=== PATIENT | male | born 1945 | race Caucasian/White ===

== ENCOUNTER 2019-12-11 13:25 | Emergency (ER) | payer MEDICARE ==
[2019-12-11] MEDS ORDERED: Nitroglycerin 0.4 MG Tab.SL SL PRN (14:26)
[2019-12-11] MEDS ORDERED: Sodium Chloride 0.9% 10 ML Syringe FLUSH PRN (14:26)
[2019-12-11] MEDS ORDERED: Furosemide 40 MG/4 ML VIAL IVPUSH ONE (14:30)
--- NOTE | 2019-12-11 14:30 | EDM.PDOC ---
ED HPI GENERAL MEDICAL PROBLEM - General Chief Complaint: Respiratory Problem Stated Complaint: TROUBLE BREATHING Time Seen by Provider: 12/11/19 14:21 Source of Information: Reports: Patient, RN Notes Reviewed History Limitations: Reports: No Limitations - History of Present Illness INITIAL COMMENTS - FREE TEXT/NARRATIVE: 74-year-old gentleman presents emergency department a complaint of shortness of breath, he has a known history of congestive heart failure he states over the last week or so it has progressively gotten worse he has gained about 15 pounds he notices most of the swelling is in his lower extremities. He currently takes Lasix 40 mg once a day. He denies any chest pain he says his shortness of breath really bothers him when he walks - Related Data Allergies Allergy/AdvReac Type Severity Reaction Status Date / Time lisinopril AdvReac Cough Verified 12/11/19 13:48 Home Meds: Home Meds Digoxin 1 tab PO DAILY 05/26/16 [History] Multivitamin [Multivitamins] 1 tab PO DAILY 05/26/16 [History] Citalopram Hydrobromide [Celexa] 10 mg PO DAILY 06/29/18 [History] Metoprolol Succinate 50 mg PO BID 06/29/18 [History] Rivaroxaban [Xarelto] 20 mg PO DAILY 06/29/18 [History] Amiodarone [Cordarone] 1 tab PO DAILY 12/11/19 [History] Furosemide [Lasix] 20 mg PO BID 12/11/19 [History] Warfarin Sodium 1 tab PO DAILY 12/11/19 [History] atorvaSTATin Calcium [Atorvastatin Calcium] 1 tab PO DAILY 12/11/19 [History] Past Medical History Cardiovascular History: Reports: Afib, CAD, Heart Failure, High Cholesterol, Hypertension, [place], Pacemaker, Prior Cardiac Arrest Genitourinary History: Reports: Chronic Renal Insuffiency Musculoskeletal History: Reports: Arthritis, Fracture Psychiatric History: Reports: Addiction - Past Surgical History HEENT Surgical History: Reports: Tonsillectomy Cardiovascular Surgical History: Reports: AICD, Coronary Artery Stent, Pacer GI Surgical History: Reports: Hernia, Inguinal Social & Family History - Tobacco Use Smoking Status *Q: Current Every Day Smoker Years of Tobacco use: 30 Packs/Tins Daily: 0.5 - Caffeine Use Caffeine Use: Reports: Coffee ED ROS GENERAL - Review of Systems Review Of Systems: See Below Constitutional: Reports: No Symptoms HEENT: Reports: No Symptoms Respiratory: Reports: Shortness of Breath Cardiovascular: Reports: Dyspnea on Exertion. Denies: Chest Pain GI/Abdominal: Reports: No Symptoms ED EXAM, GENERAL - Physical Exam Exam: See Below Exam Limited By: No Limitations General Appearance: Alert, WD/WN, No Apparent Distress Respiratory/Chest: No Respiratory Distress, Decreased Breath Sounds. No: Crackles Cardiovascular: Regular Rate, Rhythm, No Murmur GI/Abdominal: Soft, Non-Tender Back Exam: Normal Inspection, Full Range of Motion. No: CVA Tenderness (R), CVA Tenderness (L) Extremities: Pedal Edema Course - Vital Signs Last Recorded V/S: Last Vital Signs Temp 97.0 F 12/11/19 14:08 Pulse 61 12/11/19 15:59 Resp 20 12/11/19 15:59 BP 127/76 12/11/19 15:59 Pulse Ox 89 L 12/11/19 15:59 - Orders/Labs/Meds Orders: Active Orders 24 hr Category Date Time Status Cardiac Monitoring [RC] .As Directed Care 12/11/19 14:26 Active Peripheral IV Care [RC] . DIRECTED Care 12/11/19 14:26 Active Chest 1V Frontal [CR] Stat Exams 12/11/19 14:27 Taken INR,PT,PROTHROMBIN TIME [COAG] Urgent Lab 12/11/19 16:53 Ordered Nitroglycerin [Nitrostat] Med 12/11/19 14:26 Active 0.4 mg SL Q5M PRN Sodium Chloride 0.9% [Saline Flush] Med 12/11/19 14:26 Active 10 ml FLUSH ASDIRECTED PRN Peripheral IV Insertion Adult [OM.PC] Stat Oth 12/11/19 14:26 Ordered Saline Lock Insert [OM.PC] Stat Oth 12/11/19 14:26 Ordered Medication Orders Nitroglycerin (Nitrostat) 0.4 mg SL Q5M PRN PRN Reason: dys Stop: 12/12/19 14:26 Last Admin: 12/11/19 15:00 Dose: 0.4 mg Sodium Chloride (Saline Flush) 10 ml FLUSH ASDIRECTED PRN PRN Reason: Keep Vein Open Last Admin: 12/11/19 15:00 Dose: 10 ml Labs: Laboratory Tests 12/11/19 12/11/19 12/11/19 Range/Units 14:40 14:40 14:40 WBC 7.4 (4.5-11.0) K/uL RBC 3.87 L (4.30-5.90) M/uL Hgb 11.6 L (12.0-15.0) g/dL Hct 36.8 L (40.0-54.0) % MCV 95 (80-98) fL MCH 30 (27-31) pg MCHC 32 (32-36) % Plt Count 261 (150-400) K/uL Neut % (Auto) 79 H (36-66) % Lymph % (Auto) 10 L (24-44) % [place] % (Auto) 9 H (2-6) % Eos % (Auto) 1 L (2-4) % Baso % (Auto) 0 (0-1) % PT (9.5-12.0) sec INR (0.80-1.20) Sodium 141 (140-148) mmol/L Potassium 4.1 (3.6-5.2) mmol/L Chloride 103 (100-108) mmol/L Carbon Dioxide 26 (21-32) mmol/L Anion Gap 11.7 (5.0-14.0) mmol/L BUN 57 H D (7-18) mg/dL Creatinine 2.5 H D (0.8-1.3) mg/dL Est Cr Clr Drug Dosing 31.68 mL/min Estimated GFR (MDRD) 25 L (>60) Glucose 161 H (74-106) mg/dL Lactic Acid 2.6 H (0.4-2.0) mmol/L Calcium 8.4 L (8.5-10.1) mg/dL Total Bilirubin 1.6 H D (0.2-1.0) mg/dL AST 102 H D (15-37) U/L ALT 146 H (12-78) U/L Alkaline Phosphatase 161 H D (46-116) U/L Troponin I 0.048 (0.000-0.056) ng/mL NT-Pro-B Natriuret Pep 4769 H (5-450) pg/mL Total Protein 6.6 (6.4-8.2) g/dL Albumin 3.2 L (3.4-5.0) g/dL Globulin 3.4 (2.3-3.5) g/dL Albumin/Globulin Ratio 0.9 L (1.2-2.2) Digoxin (0.90-2.00) ng/mL 12/11/19 12/11/19 Range/Units 14:40 17:00 WBC (4.5-11.0) K/uL RBC (4.30-5.90) M/uL Hgb (12.0-15.0) g/dL Hct (40.0-54.0) % MCV (80-98) fL MCH (27-31) pg MCHC (32-36) % Plt Count (150-400) K/uL Neut % (Auto) (36-66) % Lymph % (Auto) (24-44) % [place] % (Auto) (2-6) % Eos % (Auto) (2-4) % Baso % (Auto) (0-1) % PT 39.4 H (9.5-12.0) sec INR 3.94 H D (0.80-1.20) Sodium (140-148) mmol/L Potassium (3.6-5.2) mmol/L Chloride (100-108) mmol/L Carbon Dioxide (21-32) mmol/L Anion Gap (5.0-14.0) mmol/L BUN (7-18) mg/dL Creatinine (0.8-1.3) mg/dL Est Cr Clr Drug Dosing mL/min Estimated GFR (MDRD) (>60) Glucose (74-106) mg/dL Lactic Acid (0.4-2.0) mmol/L Calcium (8.5-10.1) mg/dL Total Bilirubin (0.2-1.0) mg/dL AST (15-37) U/L ALT (12-78) U/L Alkaline Phosphatase (46-116) U/L Troponin I (0.000-0.056) ng/mL NT-Pro-B Natriuret Pep (5-450) pg/mL Total Protein (6.4-8.2) g/dL Albumin (3.4-5.0) g/dL Globulin (2.3-3.5) g/dL Albumin/Globulin Ratio (1.2-2.2) Digoxin < 0.20 L (0.90-2.00) ng/mL Meds: Medications Generic Name Dose Route Start Last Admin Trade Name Freq PRN Reason Stop Dose Admin Nitroglycerin 0.4 mg 12/11/19 14:26 12/11/19 15:00 Nitrostat SL 12/12/19 14:26 0.4 mg Q5M PRN Administration dys Sodium Chloride 10 ml 12/11/19 14:26 12/11/19 15:00 Saline Flush FLUSH 10 ml ASDIRECTED PRN Administration Keep Vein Open Discontinued Medications Generic Name Dose Route Start Last Admin Trade Name Freq PRN Reason Stop Dose Admin Furosemide 80 mg 12/11/19 14:30 12/11/19 15:00 Lasix IVPUSH 12/11/19 14:31 80 mg ONETIME ONE Administration Departure - Departure Time of Disposition: 17:29 Disposition: Home, Self-Care 01 Condition: Fair Clinical Impression: Acute exacerbation of congestive heart failure Qualifiers: Heart failure type: unspecified Qualified Code(s): I50.9 - Heart failure, unspecified - Discharge Information Instructions: Heart Failure Action Plan Referrals: PCP,None [Primary Care Provider] - Forms: ED Department Discharge Additional Instructions: Do not take anymore Lasix today, start your Lasix tomorrow 40 mg in the morning 40 mg at 2:00 in the afternoon, hold your dose of Coumadin tomorrow restart on Thursday. Please follow-up with your primary care and blood draw on Thursday at which time recommend checking your electrolytes or basic metabolic panel please consult with your primary care physician after the blood draw please bring in your daily weights and they can adjust your Lasix dose based upon weights. Call or return to the emergency department worsening of symptoms Sepsis Event Note - Evaluation Sepsis Screening Result: No Definite Risk - Focused Exam Vital Signs: Vital Signs Temp Pulse Resp BP BP Pulse Ox 12/11/19 15:59 61 20 127/76 89 L 12/11/19 15:00 122/63 12/11/19 14:08 97.0 F 60 19 135/66 96 12/11/19 13:43 97.0 F 60 19 135/66 96 Date Exam was Performed: 12/11/19 Time Exam was Performed: 17:27 - My Orders Last 24 Hours: My Active Orders 12/11/19 14:26 Cardiac Monitoring [RC] .As Directed Peripheral IV Care [RC] . DIRECTED Nitroglycerin [Nitrostat] 0.4 mg SL Q5M PRN Sodium Chloride 0.9% [Saline Flush] 10 ml FLUSH ASDIRECTED PRN Peripheral IV Insertion Adult [OM.PC] Stat Saline Lock Insert [OM.PC] Stat 12/11/19 14:27 Chest 1V Frontal [CR] Stat 12/11/19 16:53 INR,PT,PROTHROMBIN TIME [COAG] Urgent - Assessment/Plan Last 24 Hours: My Active Orders 12/11/19 14:26 Cardiac Monitoring [RC] .As Directed Peripheral IV Care [RC] . DIRECTED Nitroglycerin [Nitrostat] 0.4 mg SL Q5M PRN Sodium Chloride 0.9% [Saline Flush] 10 ml FLUSH ASDIRECTED PRN Peripheral IV Insertion Adult [OM.PC] Stat Saline Lock Insert [OM.PC] Stat 12/11/19 14:27 Chest 1V Frontal [CR] Stat 12/11/19 16:53 INR,PT,PROTHROMBIN TIME [COAG] Urgent Plan: Assessment Acuity = acute on chronic Site and laterality = congestive heart failure Etiology = probably related to fluid intake and salt intake Manifestations = dyspnea on exertion Location of injury = Home Lab values = CBC unremarkable INR supratherapeutic 3.94 creatinine elevated 2.5 consistent with chronic renal failure stage G4 lactic acid slightly elevated 2.6 consistent lactic acidosis total bilirubin elevated 1.6 consistent hyperbilirubinemia AST elevated 102 ALT elevated 146 consistent with elevated liver enzymes troponin elevated 0.048 still within the normal range but probably related to leak phenomenon BNP markedly elevated 4769 which is 2000 greater than his baseline from last visit digoxin subtherapeutic at 0.2 chest x- ray shows cardiomegaly consistent with CHF type pattern Plan He had good response to 80 mg Lasix provided in the ED with 650 cc urine out I did discuss with him options such as admission versus outpatient treatment he elected to try outpatient treatment. Therefore I will increase his Lasix to 80 mg p.o. twice daily he has a follow-up appointment with the blood draw on Thursday at which time I have asked them to add electrolytes he is going to do daily weights This note was dictated using [employer] voice recognition software please call with any questions on syntax or grammar.
[2019-12-11 16:00] VITALS: BP 127/76; PULSE 61
--- NOTE | 2019-12-12 10:19 | CR ---
CHEST: Portable 12/11/2019 at 3:07 PM CLINICAL HISTORY:Chest pain COMPARISON:June 2018 FINDINGS: Heart is enlarged. Pulmonary vascularity is cephalized. There is increased perihilar and right lower lobe lung markings. There is a large left effusion with some compression left lower lobe. Patient has a permanent cardiac pacer/defibrillator. Impression: Cardiomegaly with vascular congestion suggests CHF. Patchy perihilar and right lower lobe infiltrates likely pulmonary edema Large increasing left pleural effusion. Left lower lobe is not well seen
== END 2019-12-11 17:41 | disposition home or self-care (01) ==
LOC: JP.ED 13:25
DX: I13.0 Hypertensive heart and chronic kidney disease with heart failure and stage 1 through stage 4 chronic kidney disease, or unspecified chronic kidney disease (principal); N18.9 Chronic kidney disease, unspecified; I50.9 Heart failure, unspecified; I48.91 Unspecified atrial fibrillation; F17.210 Nicotine dependence, cigarettes, uncomplicated; Z88.8 Allergy status to other drugs, medicaments and biological substances; Z79.01 Long term (current) use of anticoagulants; Z79.899 Other long term (current) drug therapy
CPT/HCPCS: 36415; 71045; 80053; 80162; 83605; 83880; 84484; 85025; 85610; 96374; 99284; 99285; A9270; J1940

== ENCOUNTER 2019-12-13 13:03 | Inpatient (IN) | payer MEDICARE ==
[2019-12-13] MEDS ORDERED: Bumetanide 1 MG/4 ML MDV IVPUSH ONE (13:59)
[2019-12-13] MEDS ORDERED: Sodium Chloride 0.9% 10 ML Syringe FLUSH PRN (13:59)
--- NOTE | 2019-12-13 14:03 | EDM.PDOC ---
ED HPI GENERAL MEDICAL PROBLEM - General Chief Complaint: Respiratory Problem Stated Complaint: SHORTNESS OF BREATH RETAINING FLUIDS Time Seen by Provider: 12/13/19 13:55 Source of Information: Reports: Patient, Family, RN Notes Reviewed History Limitations: Reports: No Limitations - History of Present Illness INITIAL COMMENTS - FREE TEXT/NARRATIVE: 74-year-old gentleman presents emergency department today complaint shortness of breath, I had opportunity to evaluate him on Thursday he has a known history of congestive heart failure felt to be in diastolic acute on chronic heart failure exacerbation Lasix were increased to 40 mg p.o. twice daily from 40 daily on Thursday he was able to get out around 600 cc a urine prior to discharge. He states the first day went well he had good urine output however today he has not had any urine output his weight has not changed neither up or down. Continues to be short of breath with exertion but no chest pain - Related Data Allergies Allergy/AdvReac Type Severity Reaction Status Date / Time lisinopril AdvReac Cough Verified 12/13/19 13:33 Home Meds: Home Meds Digoxin 1 tab PO DAILY 05/26/16 [History] Multivitamin [Multivitamins] 1 tab PO DAILY 05/26/16 [History] Citalopram Hydrobromide [Celexa] 10 mg PO DAILY 06/29/18 [History] Metoprolol Succinate 50 mg PO BID 06/29/18 [History] Amiodarone [Cordarone] 1 tab PO DAILY 12/11/19 [History] Furosemide [Lasix] 40 mg PO BID 12/11/19 [History] Warfarin Sodium 1 tab PO DAILY 12/11/19 [History] atorvaSTATin Calcium [Atorvastatin Calcium] 1 tab PO DAILY 12/11/19 [History] Past Medical History Cardiovascular History: Reports: Afib, CAD, Heart Failure, High Cholesterol, Hypertension, [place], Pacemaker, Prior Cardiac Arrest Genitourinary History: Reports: Chronic Renal Insuffiency Musculoskeletal History: Reports: Arthritis, Fracture Psychiatric History: Reports: Addiction - Past Surgical History HEENT Surgical History: Reports: Tonsillectomy Cardiovascular Surgical History: Reports: AICD, Coronary Artery Stent, Pacer GI Surgical History: Reports: Hernia, Inguinal Social & Family History - Tobacco Use Smoking Status *Q: Light Tobacco Smoker Years of Tobacco use: 40 Packs/Tins Daily: 0.5 - Caffeine Use Caffeine Use: Reports: Coffee Other Caffeine Use: 8 cups per day - Recreational Drug Use Recreational Drug Use: No ED ROS GENERAL - Review of Systems Review Of Systems: See Below Constitutional: Reports: No Symptoms HEENT: Reports: No Symptoms Respiratory: Reports: Shortness of Breath. Denies: Cough, Sputum Cardiovascular: Reports: Dyspnea on Exertion, Edema GI/Abdominal: Reports: No Symptoms : Reports: No Symptoms ED EXAM, GENERAL - Physical Exam Exam: See Below Exam Limited By: No Limitations General Appearance: Alert, WD/WN, No Apparent Distress Respiratory/Chest: No Respiratory Distress, Decreased Breath Sounds. No: Crackles Cardiovascular: No Murmur, Irregularly Irregular Extremities: Pedal Edema Course - Vital Signs Last Recorded V/S: Last Vital Signs Temp 96 F L 12/13/19 13:31 Pulse 64 12/13/19 14:51 Resp 18 12/13/19 14:51 BP 127/66 12/13/19 14:51 Pulse Ox 92 L 12/13/19 14:51 - Orders/Labs/Meds Orders: Active Orders 24 hr Category Date Time Status Cardiac Monitoring [RC] .As Directed Care 12/13/19 13:59 Active Peripheral IV Care [RC] . DIRECTED Care 12/13/19 13:59 Active Chest 1V Frontal [CR] Stat Exams 12/13/19 13:59 Taken Sodium Chloride 0.9% [Saline Flush] Med 12/13/19 13:59 Active 10 ml FLUSH ASDIRECTED PRN Peripheral IV Insertion Adult [OM.PC] Stat Oth 12/13/19 13:59 Ordered Saline Lock Insert [OM.PC] Stat Oth 12/13/19 13:59 Ordered Medication Orders Sodium Chloride (Saline Flush) 10 ml FLUSH ASDIRECTED PRN PRN Reason: Keep Vein Open Last Admin: 12/13/19 14:49 Dose: 10 ml Labs: Laboratory Tests 12/13/19 12/13/19 12/13/19 Range/Units 14:16 14:16 14:16 WBC 8.8 (4.5-11.0) K/uL RBC 3.95 L (4.30-5.90) M/uL Hgb 11.8 L (12.0-15.0) g/dL Hct 37.7 L (40.0-54.0) % MCV 95 (80-98) fL MCH 30 (27-31) pg MCHC 31 L (32-36) % Plt Count 264 (150-400) K/uL Neut % (Auto) 79 H (36-66) % Lymph % (Auto) 10 L (24-44) % [place] % (Auto) 10 H (2-6) % Eos % (Auto) 1 L (2-4) % Baso % (Auto) 0 (0-1) % PT 42.5 H (9.5-12.0) sec INR 4.27 H* (0.80-1.20) Sodium 143 (140-148) mmol/L Potassium 4.0 (3.6-5.2) mmol/L Chloride 103 (100-108) mmol/L Carbon Dioxide 29 (21-32) mmol/L Anion Gap 10.9 (5.0-14.0) mmol/L BUN 46 H (7-18) mg/dL Creatinine 2.2 H (0.8-1.3) mg/dL Est Cr Clr Drug Dosing 36.00 mL/min Estimated GFR (MDRD) 29 L (>60) Glucose 90 (74-106) mg/dL Calcium 8.4 L (8.5-10.1) mg/dL Total Bilirubin 1.4 H (0.2-1.0) mg/dL AST 71 H (15-37) U/L ALT 123 H (12-78) U/L Alkaline Phosphatase 140 H (46-116) U/L Troponin I 0.062 H* (0.000-0.056) ng/mL NT-Pro-B Natriuret Pep 3658 H (5-450) pg/mL Total Protein 6.6 (6.4-8.2) g/dL Albumin 3.2 L (3.4-5.0) g/dL Globulin 3.4 (2.3-3.5) g/dL Albumin/Globulin Ratio 0.9 L (1.2-2.2) Meds: Medications Generic Name Dose Route Start Last Admin Trade Name Freq PRN Reason Stop Dose Admin Sodium Chloride 10 ml 12/13/19 13:59 12/13/19 14:49 Saline Flush FLUSH 10 ml ASDIRECTED PRN Administration Keep Vein Open Discontinued Medications Generic Name Dose Route Start Last Admin Trade Name Freq PRN Reason Stop Dose Admin Bumetanide 2 mg 12/13/19 13:59 12/13/19 14:49 Bumex IVPUSH 12/13/19 14:00 2 mg ONETIME ONE Administration Departure - Departure Time of Disposition: 15:23 Disposition: Admitted As Inpatient 66 Condition: Fair Clinical Impression: Pleural effusion, left Acute exacerbation of congestive heart failure Qualifiers: Heart failure type: unspecified Qualified Code(s): I50.9 - Heart failure, unspecified - Discharge Information Referrals: PCP,None [Primary Care Provider] - Forms: ED Department Discharge Sepsis Event Note - Evaluation Sepsis Screening Result: No Definite Risk - Focused Exam Vital Signs: Vital Signs Temp Pulse Resp BP Pulse Ox 12/13/19 14:51 64 18 127/66 92 L 12/13/19 13:31 96 F L 60 20 126/73 95 Date Exam was Performed: 12/13/19 Time Exam was Performed: 15:20 - My Orders Last 24 Hours: My Active Orders 12/13/19 13:59 Cardiac Monitoring [RC] .As Directed Peripheral IV Care [RC] . DIRECTED Chest 1V Frontal [CR] Stat Sodium Chloride 0.9% [Saline Flush] 10 ml FLUSH ASDIRECTED PRN Peripheral IV Insertion Adult [OM.PC] Stat Saline Lock Insert [OM.PC] Stat - Assessment/Plan Last 24 Hours: My Active Orders 12/13/19 13:59 Cardiac Monitoring [RC] .As Directed Peripheral IV Care [RC] . DIRECTED Chest 1V Frontal [CR] Stat Sodium Chloride 0.9% [Saline Flush] 10 ml FLUSH ASDIRECTED PRN Peripheral IV Insertion Adult [OM.PC] Stat Saline Lock Insert [OM.PC] Stat Plan: Assessment Acuity = acute Site and laterality = acute on chronic diastolic congestive heart failure with increasing left pleural effusion Etiology = suspicious for increased salt intake the week prior Manifestations = dyspnea on exertion Location of injury = Home Lab values = hemoglobin slightly low at 11.8 consistent normochromic anemia INR supratherapeutic 4.27 creatinine elevated 2.2 consistent chronic renal failure stage G4 bilirubin elevated 1.4 consistent hyperbilirubinemia AST 71 ALT 120 consistent with elevated liver enzymes troponin slightly elevated 0.062 consistent with leak type pattern BNP elevated 3658 close to his baseline chest x-ray shows cardiomegaly increasing left pleural effusion with increased vasculature consistent with congestive heart failure Plan Call discussed case with hospitalist on-call at 1510 he kindly agreed to come and evaluate the patient in the emergency department for admission This note was dictated using [employer] voice recognition software please call with any questions on syntax or grammar.
--- NOTE | 2019-12-13 16:27 | PCM.HP.2 ---
H&P History of Present Illness - General Date of Service: 12/13/19 Admit Problem/Dx: Admission Diagnosis/Problem Admission Diagnosis/Problem CHF, Congestive heart failure Source of Information: Patient, Provider History Limitations: Reports: No Limitations - History of Present Illness Initial Comments - Free Text/Narative: CC: I am having more trouble breathing HPI: Luis presents to the emergency room today with about 2 weeks of progressive dyspnea with exertion as well as a 15 pound weight gain. He reports that he has been more short of breath than usual pretty much all winter but things have been progressive over the past 2 weeks and especially the past few days. He is now short of breath with even minimal exertion. He has developed orthopnea. His weight is up about 15 pounds in the last 2 weeks and he has noticed a significant increase in his lower extremity swelling. His abdomen feels bloated and his pants are fitting tighter. He has not had any chest pain. No fevers or chills. No significant cough. He was seen in the emergency room 2 days ago and had his furosemide dosing increased and wanted to try to manage this at home but unfortunately has gotten worse despite the increased dose of furosemide. No change in bowel or bladder habits. No significant joint or muscle pains beyond the ordinary. Work-up in the emergency room was consistent of an exacerbation of his chronic congestive heart failure. Creatinine is higher than baseline but slightly better than it was 2 days ago. Troponin is very mildly elevated likely secondary to demand ischemia. He has received bumetanide in the emergency room and will be admitted for an exacerbation of his congestive heart failure. - Related Data Allergies/Adverse Reactions: Allergies Allergy/AdvReac Type Severity Reaction Status Date / Time lisinopril AdvReac Cough Verified 12/13/19 13:33 Home Medications: Home Meds Multivitamin [Multivitamins] 1 tab PO DAILY 05/26/16 [History] Citalopram Hydrobromide [Celexa] 10 mg PO DAILY 06/29/18 [History] Metoprolol Succinate 50 mg PO BID 06/29/18 [History] Amiodarone [Cordarone] 200 mg PO DAILY 12/11/19 [History] Furosemide [Lasix] 40 mg PO BID 12/11/19 [History] Warfarin Sodium 5 mg PO ASDIRECTED 12/11/19 [History] atorvaSTATin Calcium [Atorvastatin Calcium] 20 mg PO DAILY 12/11/19 [History] Warfarin [Coumadin] 2.5 mg PO ASDIRECTED 12/13/19 [History] Past Medical History Cardiovascular History: Reports: Afib, CAD, Heart Failure, High Cholesterol, Hypertension, MD, Pacemaker, Prior Cardiac Arrest Genitourinary History: Reports: Chronic Renal Insuffiency Musculoskeletal History: Reports: Arthritis, Fracture Psychiatric History: Reports: Addiction - Past Surgical History HEENT Surgical History: Reports: Tonsillectomy Cardiovascular Surgical History: Reports: AICD, Coronary Artery Stent, Pacer GI Surgical History: Reports: Hernia, Inguinal Social & Family History - Family History Cardiac: Reports: CAD (dad) - Tobacco Use Smoking Status *Q: Light Tobacco Smoker Years of Tobacco use: 40 Packs/Tins Daily: 0.5 - Caffeine Use Caffeine Use: Reports: Coffee Other Caffeine Use: 8 cups per day - Alcohol Use Alcohol Use History: No - Recreational Drug Use Recreational Drug Use: No H&P Review of Systems - Review of Systems: Review Of Systems: See Below Free Text/Narrative: A complete 12 point review of systems was obtained. Pertinent positives and negatives are noted in the history of present illness. All other systems were reviewed and were negative except as noted. Exam - Exam Exam: See Below - Vital Signs Vital Signs: Last Vital Signs Temp 35.5 C L 12/13/19 13:31 Pulse 59 L 12/13/19 16:14 Resp 18 12/13/19 16:14 BP 131/73 12/13/19 16:14 Pulse Ox 92 L 12/13/19 14:51 Weight: 91.7 kg - Exam Quality Assessment: No: Supplemental Oxygen General: Alert, Oriented, Cooperative. No: Mild Distress HEENT: Conjunctiva Clear, Mucosa Moist & [place]. No: Scleral Icterus Neck: Supple, Trachea Midline, JVD. No: Lymphadenopathy Lungs: Normal Respiratory Effort, Decreased Breath Sounds (left mid and lower lung ). No: Crackles Cardiovascular: Regular Rate, Regular Rhythm, Gallop/S3. No: Systolic Murmur GI/Abdominal Exam: Normal Bowel Sounds, Soft, Non-Tender, No Distention Back Exam: Normal Inspection, Full Range of Motion Extremities: Pedal Edema (pitting edema to the knee on the left and the thigh on the right ). No: Increased Warmth Peripheral Pulses: 1+: Dorsalis Pedis (L), Dorsalis Pedis (R) Skin: Warm, Dry Neuro Extensive - Mental Status: Alert, Oriented x3, Nl Response to Commands Neuro Extensive - Motor, Sensory, Reflexes: No: Dysarthria, Abnormal Motor, Tremor Psychiatric: Alert, Normal Affect - Patient Data Lab Results Last 24 hrs: Laboratory Results - last 24 hr 12/13/19 12/13/19 12/13/19 Range/Units 14:16 14:16 14:16 WBC 8.8 (4.5-11.0) K/uL RBC 3.95 L (4.30-5.90) M/uL Hgb 11.8 L (12.0-15.0) g/dL Hct 37.7 L (40.0-54.0) % MCV 95 (80-98) fL MCH 30 (27-31) pg MCHC 31 L (32-36) % Plt Count 264 (150-400) K/uL Neut % (Auto) 79 H (36-66) % Lymph % (Auto) 10 L (24-44) % [place] % (Auto) 10 H (2-6) % Eos % (Auto) 1 L (2-4) % Baso % (Auto) 0 (0-1) % PT 42.5 H (9.5-12.0) sec INR 4.27 H* (0.80-1.20) Sodium 143 (140-148) mmol/L Potassium 4.0 (3.6-5.2) mmol/L Chloride 103 (100-108) mmol/L Carbon Dioxide 29 (21-32) mmol/L Anion Gap 10.9 (5.0-14.0) mmol/L BUN 46 H (7-18) mg/dL Creatinine 2.2 H (0.8-1.3) mg/dL Est Cr Clr Drug Dosing 36.00 mL/min Estimated GFR (MDRD) 29 L (>60) Glucose 90 (74-106) mg/dL Calcium 8.4 L (8.5-10.1) mg/dL Total Bilirubin 1.4 H (0.2-1.0) mg/dL AST 71 H (15-37) U/L ALT 123 H (12-78) U/L Alkaline Phosphatase 140 H (46-116) U/L Troponin I 0.062 H* (0.000-0.056) ng/mL NT-Pro-B Natriuret Pep 3658 H (5-450) pg/mL Total Protein 6.6 (6.4-8.2) g/dL Albumin 3.2 L (3.4-5.0) g/dL Globulin 3.4 (2.3-3.5) g/dL Albumin/Globulin Ratio 0.9 L (1.2-2.2) Result Diagrams: 12/13/19 14:16 12/13/19 14:16 Imaging Impressions Last 24 hrs: CXR-images personally reviewed-right lung is clear. large left pleural effusion. No obvious mass or infiltrate. Sepsis Event Note - Evaluation Sepsis Screening Result: No Definite Risk - Focused Exam Vital Signs: Vital Signs Temp Pulse Resp BP Pulse Ox 12/13/19 16:14 59 L 18 131/73 12/13/19 14:51 64 18 127/66 92 L 12/13/19 13:31 35.5 C L 60 20 126/73 95 Date Exam was Performed: 12/13/19 Time Exam was Performed: 16:41 *Q Meaningful Use (ADM) - VTE Risk Assess *Q Each Risk Factor Represents 1 Point: Swollen Legs, Current, Congestive heart failure (CHF) Total Score 1 Point Risk Factors: 2 Each Risk Factor Represents 2 Points: None Total Score 2 Point Risk Factors: 0 Each Risk Factor Represents 3 Points: Age 75 Years or Greater Total Score 3 Point Risk Factors: 3 Each Risk Factor Represents 5 Points: None Total Score 5 Point Risk Factors: 0 Venous Thromboembolism Risk Factor Score *Q: 5 - Problem List (1) Acute combined systolic and diastolic CHF, NYHA class 3 SNOMED Code(s): 275529646752631, 754514583, 108179950658780 ICD Code: I50.41 - ACUTE COMBINED SYSTOLIC AND DIASTOLIC (CONGESTIVE) HRT FAIL Status: Acute Current Visit: Yes (2) Pleural effusion, left SNOMED Code(s): 42021384 ICD Code: J90 - PLEURAL EFFUSION, NOT ELSEWHERE CLASSIFIED Status: Acute Current Visit: Yes (3) Acute kidney injury superimposed on chronic kidney disease SNOMED Code(s): 85264106 ICD Code: N17.9 - ACUTE KIDNEY FAILURE, UNSPECIFIED; N18.9 - CHRONIC KIDNEY DISEASE, UNSPECIFIED Status: Acute Current Visit: Yes (4) Tobacco dependence syndrome SNOMED Code(s): 27854552 ICD Code: F17.200 - NICOTINE DEPENDENCE, UNSPECIFIED, UNCOMPLICATED Status : Chronic Current Visit: Yes Problem List Initiated/Reviewed/Updated: Yes Orders Last 24hrs: Active Orders 24 hr Category Date Time Status Patient Status Manage Transfer [TRANSFER] Routine ADT 12/13/19 16:17 Ordered Cardiac Monitoring [RC] .As Directed Care 12/13/19 13:59 Active Peripheral IV Care [RC] . DIRECTED Care 12/13/19 13:59 Active Chest 1V Frontal [CR] Stat Exams 12/13/19 13:59 Taken Sodium Chloride 0.9% [Saline Flush] Med 12/13/19 13:59 Active 10 ml FLUSH ASDIRECTED PRN Peripheral IV Insertion Adult [OM.PC] Stat Oth 12/13/19 13:59 Ordered Saline Lock Insert [OM.PC] Stat Oth 12/13/19 13:59 Ordered Resuscitation Status Routine Resus Stat 12/13/19 16:19 Ordered Medication Orders Sodium Chloride (Saline Flush) 10 ml FLUSH ASDIRECTED PRN PRN Reason: Keep Vein Open Last Admin: 12/13/19 14:49 Dose: 10 ml Assessment/Plan Comment:: ASSESSMENT AND PLAN - Acute combined systolic and diastolic congestive heart failure-at this time I am not able to find a baseline ejection fraction but he thinks his baseline is around 25 to 30%. Bedside ultrasound today suggests ejection fraction around 25 % at best. He has obvious evidence for volume overload on examination. He has a large pleural effusion as discussed below that could be contributing. He has failed outpatient therapy with increased furosemide dosing. Mild troponin leak is likely related to his congestive heart failure with demand ischemia. -Strict intake and output monitoring -repeat diuretic dosing early tomorrow morning -BRITTNEY stockings to help with edema -Continue beta-shilo -Echocardiogram to formally assess LV function Large left pleural effusion-from review of radiology reports it sounds like this has increased in size over the past few weeks but is stable over the past couple of days. I suspect this large effusion is contributing to his congestive heart failure and he would benefit from thoracentesis. -Reverse INR tonight -Ultrasound marking tomorrow morning -Surgical consultation in the morning for thoracentesis Acute on chronic kidney injury-significant increase in creatinine from baseline , likely secondary to his congestive heart failure. I am hopeful that his kidney function will improve as we offload some of his excess volume and improve renal perfusion. -Diuresis as above -Repeat labs in the morning Chronic atrial fibrillation-he is chronically anticoagulated and INR is slightly therapeutic. -5 mg of vitamin K x1 this evening -INR in the morning -Continue rate control Tobacco dependence-patient does not have interest in quitting at this time. He is aware of the dangers of ongoing tobacco use. -Nicotine patch Maintenance issues - - DVT prophylaxis -mechanical - GI prophylaxis -not indicated - Nutrition -low-sodium - Jeff catheter -not indicated CODE STATUS -full code Admission justification -this patient will be admitted for inpatient services and is medically appropriate meeting medical necessity for inpatient admission as outlined in my documentation. I reasonably expect the patient will require inpatient services that span a period time over 2 midnights. I reasonably expect this patient to be discharged or transferred within 96 hours [facility]. Disposition -I would anticipate discharge home after the hospital stay Primary care physician -Candy Farrell M.D. - Mortality Measure Prognosis:: Good
[2019-12-13] MEDS ORDERED: Acetaminophen 325 MG Tab PO PRN (17:02)
[2019-12-13] MEDS ORDERED: Ondansetron 4 MG/2 ML SDV IV PRN (17:02)
[2019-12-13] MEDS ORDERED: Albuterol 0.083% 2.5 MG/3 ML Neb Soln NEB PRN (17:02)
[2019-12-13] MEDS ORDERED: Ondansetron 4 MG Tab.DIS PO PRN (17:02)
[2019-12-13] MEDS ORDERED: Magnesium Hydroxide 400 MG/5 ML Susp 30 ML Cup PO PRN (17:02)
[2019-12-13] MEDS ORDERED: Nicotine 14 MG/24 Hr Patch TRDERM ONE (17:30)
[2019-12-13] MEDS ORDERED: Phytonadione 5 MG in Sodium Chloride 0.9% 50 ML IV ONE (17:30)
[2019-12-13] MEDS: Metoprolol Succinate 50 MG Tab.ER PO SCH (22:03)
[2019-12-13] MEDS: atorvaSTATin 20 MG Tab PO SCH (22:03)
[2019-12-13] MEDS: Citalopram 10 MG Tab PO SCH (22:03)
[2019-12-13] MEDS: Amiodarone 200 MG Tab PO SCH (22:04)
[2019-12-13] MEDS: LORazepam 2 MG/ML SDV IVPUSH PRN (22:05)
[2019-12-14] MEDS: LORazepam 2 MG/ML SDV IVPUSH PRN (03:24)
[2019-12-14] MEDS ORDERED: Bumetanide 2.5 MG/10 ML MDV IVPUSH ONE (06:00)
[2019-12-14] MEDS: Metoprolol Succinate 50 MG Tab.ER PO SCH ×2 (08:39→20:20)
[2019-12-14] MEDS ORDERED: atorvaSTATin 20 MG Tab PO SCH (09:00)
[2019-12-14] MEDS ORDERED: Amiodarone 200 MG Tab PO SCH (09:00)
[2019-12-14] MEDS ORDERED: Citalopram 10 MG Tab PO SCH (09:00)
--- NOTE | 2019-12-14 09:43 | CR ---
CHEST: Portable 12/13/2019 at 2:18 PM CLINICAL HISTORY:Chest pain COMPARISON:12/11/2019 FINDINGS: The heart is enlarged. Patient has a permanent cardiac pacer/defibrillator. There is a moderate to large left pleural effusion and left lower lobe airspace disease. This could represent infiltrate or atelectasis. Generalized prominence of lung markings is chronic. There are atherosclerotic changes in the aorta.. Impression: Persistent moderate to large left pleural effusion and left lower lobe airspace disease similar to prior study Underlying chronic lung field changes
[2019-12-14] MEDS: Nicotine 14 MG/24 Hr Patch TRDERM SCH (09:54)
--- NOTE | 2019-12-14 10:27 | PCM.PN ---
- General Info Date of Service: 12/14/19 Subjective Update: No acute events overnight. Decent response to diuresis yesterday and symptomatically he is feeling less short of breath. Still has a fair amount of orthopnea. Lower extremity edema is a little better. No chest pain. No fevers. Kidney function is stable. Thoracentesis planned this afternoon. Functional Status: Reports: Pain Controlled, Tolerating Diet - Review of Systems Pulmonary: Reports: Shortness of Breath Cardiovascular: Reports: Edema - Patient Data Vitals - Most Recent: Last Vital Signs Temp 36.5 C 12/14/19 07:49 Pulse 59 L 12/14/19 08:39 Resp 16 12/14/19 07:49 BP 111/66 12/14/19 08:39 Pulse Ox 100 12/14/19 07:49 Weight - Most Recent: 89.539 kg I&O - Last 24 Hours: Intake & Output 12/13/19 12/14/19 12/14/19 22:59 06:59 14:59 Intake Total 840 1320 Output Total 1345 500 400 Balance -505 -500 920 Lab Results Last 24 Hours: Laboratory Results - last 24 hr 12/13/19 12/13/19 12/13/19 Range/Units 14:16 14:16 14:16 WBC 8.8 (4.5-11.0) K/uL RBC 3.95 L (4.30-5.90) M/uL Hgb 11.8 L (12.0-15.0) g/dL Hct 37.7 L (40.0-54.0) % MCV 95 (80-98) fL MCH 30 (27-31) pg MCHC 31 L (32-36) % Plt Count 264 (150-400) K/uL Neut % (Auto) 79 H (36-66) % Lymph % (Auto) 10 L (24-44) % [place] % (Auto) 10 H (2-6) % Eos % (Auto) 1 L (2-4) % Baso % (Auto) 0 (0-1) % PT 42.5 H (9.5-12.0) sec INR 4.27 H* (0.80-1.20) Sodium 143 (140-148) mmol/L Potassium 4.0 (3.6-5.2) mmol/L Chloride 103 (100-108) mmol/L Carbon Dioxide 29 (21-32) mmol/L Anion Gap 10.9 (5.0-14.0) mmol/L BUN 46 H (7-18) mg/dL Creatinine 2.2 H (0.8-1.3) mg/dL Est Cr Clr Drug Dosing 36.00 mL/min Estimated GFR (MDRD) 29 L (>60) Glucose 90 (74-106) mg/dL Calcium 8.4 L (8.5-10.1) mg/dL Magnesium (1.8-2.4) mg/dL Total Bilirubin 1.4 H (0.2-1.0) mg/dL AST 71 H (15-37) U/L ALT 123 H (12-78) U/L Alkaline Phosphatase 140 H (46-116) U/L Troponin I 0.062 H* (0.000-0.056) ng/mL NT-Pro-B Natriuret Pep 3658 H (5-450) pg/mL Total Protein 6.6 (6.4-8.2) g/dL Albumin 3.2 L (3.4-5.0) g/dL Globulin 3.4 (2.3-3.5) g/dL Albumin/Globulin Ratio 0.9 L (1.2-2.2) Free T4 (0.76-1.46) ng/dL TSH, Ultra Sensitive (0.358-3.740) uIU/mL 12/14/19 12/14/19 12/14/19 Range/Units 04:10 04:10 08:21 WBC (4.5-11.0) K/uL RBC (4.30-5.90) M/uL Hgb (12.0-15.0) g/dL Hct (40.0-54.0) % MCV (80-98) fL MCH (27-31) pg MCHC (32-36) % Plt Count (150-400) K/uL Neut % (Auto) (36-66) % Lymph % (Auto) (24-44) % [place] % (Auto) (2-6) % Eos % (Auto) (2-4) % Baso % (Auto) (0-1) % PT 18.7 H (9.5-12.0) sec INR 1.79 H D (0.80-1.20) Sodium 141 (140-148) mmol/L Potassium 3.5 L (3.6-5.2) mmol/L Chloride 101 (100-108) mmol/L Carbon Dioxide 29 (21-32) mmol/L Anion Gap 14.5 H (5.0-14.0) mmol/L BUN 46 H (7-18) mg/dL Creatinine 2.3 H (0.8-1.3) mg/dL Est Cr Clr Drug Dosing 34.43 mL/min Estimated GFR (MDRD) 28 L (>60) Glucose 66 L (74-106) mg/dL Calcium 8.4 L (8.5-10.1) mg/dL Magnesium 1.9 (1.8-2.4) mg/dL Total Bilirubin (0.2-1.0) mg/dL AST (15-37) U/L ALT (12-78) U/L Alkaline Phosphatase (46-116) U/L Troponin I (0.000-0.056) ng/mL NT-Pro-B Natriuret Pep (5-450) pg/mL Total Protein (6.4-8.2) g/dL Albumin (3.4-5.0) g/dL Globulin (2.3-3.5) g/dL Albumin/Globulin Ratio (1.2-2.2) Free T4 1.30 (0.76-1.46) ng/dL TSH, Ultra Sensitive 10.142 H (0.358-3.740) uIU/mL Med Orders - Current: Current Medications Acetaminophen (Tylenol) 650 mg PO Q4H PRN PRN Reason: Pain (Mild 1-3)/fever Albuterol (Proventil Neb Soln) 2.5 mg NEB Q4H PRN PRN Reason: Shortness Of Breath/wheezing Last Admin: 12/14/19 03:23 Dose: 2.5 mg Amiodarone HCl (Cordarone) 200 mg PO BEDTIME JUDD Last Admin: 12/13/19 22:04 Dose: 200 mg Atorvastatin Calcium (Lipitor) 20 mg PO BEDTIME JUDD Last Admin: 12/13/19 22:03 Dose: 20 mg Bumetanide (Bumex) 2 mg IVPUSH ONETIME ONE Stop: 12/14/19 15:01 Bumetanide (Bumex) 2 mg IVPUSH ONETIME ONE Stop: 12/15/19 06:01 Citalopram Hydrobromide (Celexa) 10 mg PO BEDTIME [facility] Last Admin: 12/13/19 22:03 Dose: 10 mg Lorazepam (Ativan) 0.5 mg IVPUSH Q4H PRN PRN Reason: Nausea/Vomiting Last Admin: 12/14/19 03:24 Dose: 0.5 mg Magnesium Hydroxide (Milk Of Magnesia) 30 ml PO Q12H PRN PRN Reason: Constipation Metoprolol Succinate (Toprol Xl) 50 mg PO BID [facility] Last Admin: 12/14/19 08:39 Dose: 50 mg Nicotine (Habitrol) 14 mg TRDERM DAILY [facility] Last Admin: 12/14/19 09:54 Dose: 14 mg Ondansetron HCl (Zofran Odt) 4 mg PO Q6H PRN PRN Reason: Nausea able to take PO Ondansetron HCl (Zofran) 4 mg IV Q6H PRN PRN Reason: Nausea/Vomiting Potassium Chloride (Klor-Con M20) 40 meq PO ONETIME ONE Stop: 12/14/19 10:26 Senna/Docusate Sodium (Senna Plus) 1 tab PO BID PRN PRN Reason: Constipation Sodium Chloride (Saline Flush) 10 ml FLUSH ASDIRECTED PRN PRN Reason: Keep Vein Open Last Admin: 12/13/19 14:49 Dose: 10 ml Warfarin Sodium (Coumadin) 5 mg PO DAILY@1300 [facility] Discontinued Medications Amiodarone HCl (Cordarone) 200 mg PO DAILY [facility] Atorvastatin Calcium (Lipitor) 20 mg PO DAILY [facility] Bumetanide (Bumex) 2 mg IVPUSH ONETIME ONE Stop: 12/13/19 14:00 Last Admin: 12/13/19 14:49 Dose: 2 mg Bumetanide (Bumex) 2 mg IVPUSH ONETIME ONE Stop: 12/14/19 06:01 Last Admin: 12/14/19 06:24 Dose: 2 mg Citalopram Hydrobromide (Celexa) 10 mg PO DAILY [facility] Phytonadione 5 mg/ Sodium (Chloride) 50.5 mls @ 100 mls/hr IV NOW ONE Stop: 12/13/19 18:00 Last Admin: 12/13/19 18:29 Dose: 100 mls/hr Nicotine (Habitrol) 14 mg TRDERM ONETIME ONE Stop: 12/13/19 17:31 Last Admin: 12/13/19 18:29 Dose: 14 mg - Exam Quality Assessment: No: Supplemental Oxygen General: Alert, Oriented, Cooperative, No Acute Distress Neck: JVD Lungs: Normal Respiratory Effort Cardiovascular: Regular Rate, Regular Rhythm GI/Abdominal Exam: Soft, No Distention Extremities: Pedal Edema Psy/Mental Status: Alert, Normal Affect Sepsis Event Note - Evaluation Sepsis Screening Result: No Definite Risk - Focused Exam Vital Signs: Vital Signs Temp Pulse Pulse Resp BP BP BP 12/14/19 08:39 59 L 111/66 12/14/19 07:49 36.5 C 58 L 16 131/67 12/14/19 02:58 35.7 C L 60 20 120/63 12/13/19 22:52 36.6 C 64 18 127/56 L Pulse Ox 12/14/19 08:39 12/14/19 07:49 100 12/14/19 02:58 96 12/13/19 22:52 95 Date Exam was Performed: 12/14/19 Time Exam was Performed: 14:12 - Problem List & Annotations (1) Acute combined systolic and diastolic CHF, NYHA class 3 SNOMED Code(s): 137310569425713, 696502092, 934399520262097 Code(s): I50.41 - ACUTE COMBINED SYSTOLIC AND DIASTOLIC (CONGESTIVE) HRT FAIL Status: Acute Current Visit: Yes (2) Pleural effusion, left SNOMED Code(s): 72723446 Code(s): J90 - PLEURAL EFFUSION, NOT ELSEWHERE CLASSIFIED Status: Acute Current Visit: Yes (3) Acute kidney injury superimposed on chronic kidney disease SNOMED Code(s): 81485759 Code(s): N17.9 - ACUTE KIDNEY FAILURE, UNSPECIFIED; N18.9 - CHRONIC KIDNEY DISEASE, UNSPECIFIED Status: Acute Current Visit: Yes (4) Tobacco dependence syndrome SNOMED Code(s): 66761176 Code(s): F17.200 - NICOTINE DEPENDENCE, UNSPECIFIED, UNCOMPLICATED Status: Chronic Current Visit: Yes - Problem List Review Problem List Initiated/Reviewed/Updated: Yes - My Orders Last 24 Hours: My Active Orders 12/13/19 16:19 Resuscitation Status Routine 12/13/19 17:02 Patient Status [ADT] Routine Antiembolic Devices [RC] .Routine Height and Weight [RC] 0500 Intake and Output [RC] QSHIFT Notify Provider Vital Signs [RC] ASDIRECTED Oxygen Therapy [RC] PRN RT Aerosol Therapy [RC] ASDIRECTED Up With Assistance [RC] ASDIRECTED VTE/DVT Education [RC] Per Unit Routine Vital Signs [RC] Q4H Acetaminophen [Tylenol] 650 mg PO Q4H PRN Albuterol [Proventil Neb Soln] 2.5 mg NEB Q4H PRN Docusate Sodium/Sennosides [Senna Plus] 1 tab PO BID PRN LORazepam [Ativan] 0.5 mg IVPUSH Q4H PRN Magnesium Hydroxide [Milk of Magnesia] 30 ml PO Q12H PRN Ondansetron [Zofran ODT] 4 mg PO Q6H PRN Ondansetron [Zofran] 4 mg IV Q6H PRN Antiembolic Hose [OM.PC] Routine 12/13/19 21:00 Metoprolol Succinate [Toprol XL] 50 mg PO BID 12/13/19 21:45 Amiodarone [Cordarone] 200 mg PO BEDTIME Citalopram [Celexa] 10 mg PO BEDTIME atorvaSTATin [Lipitor] 20 mg PO BEDTIME 12/13/19 Dinner 2 Gram Sodium Diet [DIET] 12/14/19 07:00 US Guidance Thoracentesis NC [US] Routine 12/14/19 09:00 Nicotine [Habitrol] 14 mg TRDERM DAILY 12/14/19 10:25 Potassium Chloride [Klor-Con M20] 40 meq PO ONETIME ONE 12/14/19 13:00 Warfarin [Coumadin] 5 mg PO DAILY@1300 12/14/19 15:00 Bumetanide [Bumex] 2 mg IVPUSH ONETIME ONE 12/15/19 05:00 BASIC METABOLIC PANEL,BMP [CHEM] Timed INR,PT,PROTHROMBIN TIME [COAG] Timed 12/15/19 06:00 Bumetanide [Bumex] 2 mg IVPUSH ONETIME ONE 12/15/19 07:00 Echo Comp wo Cont [US] Routine - Plan Plan:: ASSESSMENT AND PLAN - Acute combined systolic and diastolic congestive heart failure-symptomatically he is a little better and examination has improved from yesterday. Echocardiogram still pending. Kidney function stable with diuresis. -Strict intake and output monitoring -repeat diuretic dosing this afternoon and tomorrow morning -BRITTNEY stockings to help with edema -Continue beta-shilo -Echocardiogram to formally assess LV function tomorrow Large left pleural effusion-thoracentesis planned for this afternoon. -Ultrasound marking complete -Surgical consultation for thoracentesis Acute on chronic kidney injury-significant increase in creatinine from baseline , likely secondary to his congestive heart failure. Kidney function stable so far but hopefully it will improve with diuresis. -Diuresis as above -Repeat labs in the morning Chronic atrial fibrillation-he was chronically anticoagulated but this was reversed for the procedure. - warfarin 5 mg daily starting this afternoon -INR in the morning -Continue rate control Tobacco dependence-patient does not have interest in quitting at this time. He is aware of the dangers of ongoing tobacco use. -Nicotine patch Maintenance issues - - DVT prophylaxis -mechanical - GI prophylaxis -not indicated - Nutrition -low-sodium Disposition -I would anticipate discharge home after the hospital stay Primary care physician -Candy Farrell M.D.
[2019-12-14] MEDS ORDERED: Potassium Chloride 20 MEQ Tab.ER PO ONE (11:00)
[2019-12-14] MEDS ORDERED: Warfarin 5 MG Tab PO SCH (13:00)
--- NOTE | 2019-12-14 13:20 | CR ---
CHEST: Portable 12/14/2019 CLINICAL HISTORY:Postthoracentesis COMPARISON:12/13/2019 FINDINGS: There is been a significant decrease in the left pleural effusion. There is some patchy density in both lower lung lion which may represent some patchy atelectasis. There is a ill-defined density in the right upper lobe which is increased compared to prior study. The small pneumonia is not excluded. Impression: Significant decrease in left pleural effusion postthoracentesis. There is no evidence of pneumothorax Patchy bibasal densities most likely some subsegmental atelectasis New patchy density in the right upper lobe may represent an early pneumonia.
[2019-12-14] MEDS ORDERED: Bumetanide 1 MG/4 ML MDV IVPUSH ONE (15:00)
[2019-12-14] MEDS ORDERED: LORazepam 0.5 MG Tab PO PRN (15:27)
[2019-12-14] MEDS: Amiodarone 200 MG Tab PO SCH (20:20)
[2019-12-14] MEDS: Citalopram 10 MG Tab PO SCH (20:20)
[2019-12-14] MEDS: atorvaSTATin 20 MG Tab PO SCH (20:21)
[2019-12-15] MEDS ORDERED: Bumetanide 1 MG/4 ML MDV IVPUSH ONE (06:00)
[2019-12-15] MEDS: Nicotine 14 MG/24 Hr Patch TRDERM SCH (08:23)
[2019-12-15] MEDS: Metoprolol Succinate 50 MG Tab.ER PO SCH (08:26)
[2019-12-15 08:29] VITALS: BP 113/62; PULSE 60
--- NOTE | 2019-12-15 09:46 | CR ---
CHEST: 2 view CLINICAL HISTORY:Left pleural effusion, infiltrates COMPARISON:12/14/2019 FINDINGS: Heart is enlarged. Pulmonary vascular is normal. Patient is a permanent cardiac pacer/defibrillator. There is a small persistent left pleural effusion. There is increasing left lower lobe infiltrate. There is also some mild patchy density in the right lung base and the right upper lobe similar to prior study. Impression: Small left pleural effusion Increasing left lower lobe infiltrate.
--- NOTE | 2019-12-15 09:57 | PCM.DCSUM1 ---
Discharge Summary - Hospital Course Brief History: 74-year-old male with history of combined systolic and diastolic congestive heart failure and stage III chronic kidney disease as well as tobacco dependence who presented with progressive shortness of breath and dyspnea with exertion. He was admitted for management of an exacerbation of his congestive heart failure that was failing outpatient medication changes. Diagnosis: Stroke: No - Discharge Data Discharge Date: 12/15/19 Discharge Disposition: Home, Self-Care 01 Condition: Good - Referral to Home Health Primary Care Physician: PCP None - Discharge Diagnosis/Problem(s) (1) Acute combined systolic and diastolic CHF, NYHA class 3 SNOMED Code(s): 182938219655183, 850211068, 806228840200708 ICD Code: I50.41 - ACUTE COMBINED SYSTOLIC AND DIASTOLIC (CONGESTIVE) HRT FAIL Status: Acute (2) Pleural effusion, left SNOMED Code(s): 96788742 ICD Code: J90 - PLEURAL EFFUSION, NOT ELSEWHERE CLASSIFIED Status: Acute (3) Acute kidney injury superimposed on chronic kidney disease SNOMED Code(s): 69498391 ICD Code: N17.9 - ACUTE KIDNEY FAILURE, UNSPECIFIED; N18.9 - CHRONIC KIDNEY DISEASE, UNSPECIFIED Status: Acute (4) Tobacco dependence syndrome SNOMED Code(s): 40141545 ICD Code: F17.200 - NICOTINE DEPENDENCE, UNSPECIFIED, UNCOMPLICATED Status : Chronic - Patient Summary/Data Operative Procedure(s) Performed: Left-sided thoracentesis performed by Dr. Santana with removal of 2600 mL of clear, light yellow fluid Hospital Course: Almas presented to the emergency room with progressive shortness of breath and dyspnea on exertion. Work-up in the emergency room was consistent with an exacerbation of his congestive heart failure which was getting worse despite increases in his outpatient diuretic regimen. He was not hypoxic at the time of presentation. He did receive a dose of IV bumetanide in the emergency room and was admitted for further management and additional work-up. Of note at the time of presentation his creatinine was up to 2.3 which is higher than his baseline of about 1.4-1.6. He had a mild troponin elevation at 0.06 but this was thought to be demand ischemia in the setting of congestive heart failure. Also noted at the time of presentation was a large left pleural effusion. His INR was mildly supratherapeutic and he did receive some vitamin K with the plan to proceed with thoracentesis the next day. Overnight he had a good response to diuresis and lost a couple of pounds just with the initial dose of bumetanide. He received additional doses the next morning. We did perform a thoracentesis at the bedside which removed 2.6 L of a clear and light yellow fluid consistent with transudate. He had a fairly impressive symptomatic improvement after the thoracentesis was complete. He had a good response to diuresis throughout the day as well. On the morning of discharge his weight is noted to be down between 12 and 13 pounds. His shortness of breath and dyspnea are much better. He does still have some lower extremity edema but this is improving as well. His kidney function has remained stable but has not improved. Blood pressure has tolerated the diuresis well. We did perform an echocardiogram on the morning of discharge. This showed an ejection fraction of about 25%. He has severe MR and TR. He has grade 3 diastolic dysfunction as well. There is global hypokinesis and an enlarged left ventricle as well as poor right ventricular function. These seem to be fairly stable when compared to previous echocardiogram reports. He is up and walking around and feels well. I am going to transition him from the furosemide to bumetanide to continue his maintenance diuretic dosing. No other medication changes were made. We did review congestive heart failure management as an outpatient including weighing himself every day and watching for changes in his weight as well as increasing symptoms such as shortness of breath or signs such as increasing lower extremity edema. He will have early follow-up with his primary care. - Patient Instructions Diet: Heart Healthy Diet Activity: As Tolerated Showering/Bathing: May Shower Other/Special Instructions: 1. You were in the hospital for management of congestive heart failure. Your condition has been improving with IV diuretic therapy as well as a left-sided thoracentesis. I recommend that we switch your diuretics from furosemide (Lasis) to bumetanide (Bumex). You should stop taking the furosemide. Starting tomorrow (Thursday) morning you should start taking bumetanide (Bumex) 1 mg once daily in the morning. Please keep track of your weight daily. If your weight rises by more than 2 pounds in 1 day or 4pounds over several days you can increase your dose to 1-1/2 or 2 tablets. If your weight decreases by more than about 4 pounds from your baseline you should decrease your dosing to 1/2 tablet daily. 2. Continue your other home medications as previously prescribed. 3. Follow up with your primary care in about 1 week. 4. Seek medical attention if you have fever greater than 101 degrees or if you develop sudden onset of shortness of breath, significant chest tightness or your weight rises by more than 5 pounds and does not respond to increases in your oral bumetanide. - Discharge Plan *PRESCRIPTION DRUG MONITORING PROGRAM REVIEWED*: Not Applicable *COPY OF PRESCRIPTION DRUG MONITORING REPORT IN PATIENT FRANCISCO: Not Applicable Prescriptions/Med Rec: Bumetanide 1 mg PO DAILY #30 tablet Home Medications: Home Meds Multivitamin [Multivitamins] 1 tab PO DAILY 05/26/16 [History] Citalopram Hydrobromide [Celexa] 10 mg PO BEDTIME 06/29/18 [History] Metoprolol Succinate 50 mg PO BID 06/29/18 [History] Amiodarone [Cordarone] 200 mg PO BEDTIME 12/11/19 [History] Warfarin Sodium 5 mg PO ASDIRECTED 12/11/19 [History] atorvaSTATin Calcium [Atorvastatin Calcium] 20 mg PO BEDTIME 12/11/19 [History] Cholecalciferol (Vitamin D3) [Vitamin D3] 1,000 unit PO DAILY 12/13/19 [History] Warfarin [Coumadin] 2.5 mg PO ASDIRECTED 12/13/19 [History] Bumetanide 1 mg PO DAILY #30 tablet 12/15/19 [Rx] Oxygen Therapy Mode: Room Air Patient Handouts: Bumetanide tablets, Heart Failure, Living With Heart Failure Referrals: Candy Patel PA [Ordering Only Provider] - 12/22/19 9:40 am (f/u in 1 week - f/u hospital stay for CHF. Your appointment with your Dr. Cartwright will be by phone. Your will call you on 12/21 between 930-940 AM.) - Discharge Summary/Plan Comment DC Time >30 min.: No - Patient Data Vitals - Most Recent: Last Vital Signs Temp 36.0 C L 12/15/19 07:00 Pulse 60 12/15/19 08:26 Resp 18 12/15/19 07:00 BP 113/62 12/15/19 08:26 Pulse Ox 99 12/15/19 07:00 Weight - Most Recent: 85.457 kg I&O - Last 24 hours: Intake & Output 12/14/19 12/15/19 12/15/19 22:59 06:59 14:59 Intake Total 250 Output Total 1050 150 900 Balance -800 -150 -900 Lab Results - Last 24 hrs: Laboratory Results - last 24 hr 12/14/19 12/14/19 12/14/19 Range/Units 12:53 12:53 12:53 PT (9.5-12.0) sec INR (0.80-1.20) Sodium (140-148) mmol/L Potassium (3.6-5.2) mmol/L Chloride (100-108) mmol/L Carbon Dioxide (21-32) mmol/L Anion Gap (5.0-14.0) mmol/L BUN (7-18) mg/dL Creatinine (0.8-1.3) mg/dL Est Cr Clr Drug Dosing mL/min Estimated GFR (MDRD) (>60) Glucose (74-106) mg/dL Calcium (8.5-10.1) mg/dL Total Protein 1.2 L (6.4-8.2) g/dL Fluid Type Pleural fluid Pleural fluid Fluid pH Fluid WBC 176 /ul Fluid RBC 59 /ul Fluid Diff Comment Sample adequate Fluid Mononuclear Cell 60 % Fl Polymorphonucl Cell 40 % Fluid Glucose 126 mg/dL Fluid LDH 74 IU/L Fluid Amylase U/L 12/14/19 12/14/19 12/15/19 Range/Units 12:53 12:53 05:35 PT 16.1 H (9.5-12.0) sec INR 1.53 H (0.80-1.20) Sodium (140-148) mmol/L Potassium (3.6-5.2) mmol/L Chloride (100-108) mmol/L Carbon Dioxide (21-32) mmol/L Anion Gap (5.0-14.0) mmol/L BUN (7-18) mg/dL Creatinine (0.8-1.3) mg/dL Est Cr Clr Drug Dosing mL/min Estimated GFR (MDRD) (>60) Glucose (74-106) mg/dL Calcium (8.5-10.1) mg/dL Total Protein (6.4-8.2) g/dL Fluid Type Pleural fluid Pleural fluid Fluid pH 8 Fluid WBC /ul Fluid RBC /ul Fluid Diff Comment Fluid Mononuclear Cell % Fl Polymorphonucl Cell % Fluid Glucose mg/dL Fluid LDH IU/L Fluid Amylase 25 U/L 12/15/19 Range/Units 05:35 PT (9.5-12.0) sec INR (0.80-1.20) Sodium 140 (140-148) mmol/L Potassium 4.0 (3.6-5.2) mmol/L Chloride 103 (100-108) mmol/L Carbon Dioxide 31 (21-32) mmol/L Anion Gap 6.2 (5.0-14.0) mmol/L BUN 46 H (7-18) mg/dL Creatinine 2.3 H (0.8-1.3) mg/dL Est Cr Clr Drug Dosing 34.58 mL/min Estimated GFR (MDRD) 28 L (>60) Glucose 178 H (74-106) mg/dL Calcium 8.0 L (8.5-10.1) mg/dL Total Protein (6.4-8.2) g/dL Fluid Type Fluid pH Fluid WBC /ul Fluid RBC /ul Fluid Diff Comment Fluid Mononuclear Cell % Fl Polymorphonucl Cell % Fluid Glucose mg/dL Fluid LDH IU/L Fluid Amylase U/L MARTHA Results - Last 24 hrs: Microbiology 12/14/19 12:53 JOSÉ Preparation - Final Other - Pleural Cavity, Unspecified 12/14/19 12:53 Gram Stain - Final Pleural Fluid - Pleural Cavity, Unspecified Med Orders - Current: Current Medications Acetaminophen (Tylenol) 650 mg PO Q4H PRN PRN Reason: Pain (Mild 1-3)/fever Albuterol (Proventil Neb Soln) 2.5 mg NEB Q4H PRN PRN Reason: Shortness Of Breath/wheezing Last Admin: 12/14/19 03:23 Dose: 2.5 mg Amiodarone HCl (Cordarone) 200 mg PO BEDTIME JUDD Last Admin: 12/14/19 20:20 Dose: 200 mg Atorvastatin Calcium (Lipitor) 20 mg PO BEDTIME JUDD Last Admin: 12/14/19 20:21 Dose: 20 mg Citalopram Hydrobromide (Celexa) 10 mg PO BEDTIME JUDD Last Admin: 12/14/19 20:20 Dose: 10 mg Lorazepam (Ativan) 0.5 mg IVPUSH Q4H PRN PRN Reason: Nausea/Vomiting Last Admin: 12/14/19 03:24 Dose: 0.5 mg Lorazepam (Ativan) 0.5 mg PO BEDTIME PRN PRN Reason: Sleep Last Admin: 12/14/19 21:48 Dose: 0.5 mg Magnesium Hydroxide (Milk Of Magnesia) 30 ml PO Q12H PRN PRN Reason: Constipation Metoprolol Succinate (Toprol Xl) 50 mg PO BID [facility] Last Admin: 12/15/19 08:26 Dose: 50 mg Nicotine (Habitrol) 14 mg TRDERM DAILY [facility] Last Admin: 12/15/19 08:23 Dose: 14 mg Ondansetron HCl (Zofran Odt) 4 mg PO Q6H PRN PRN Reason: Nausea able to take PO Ondansetron HCl (Zofran) 4 mg IV Q6H PRN PRN Reason: Nausea/Vomiting Senna/Docusate Sodium (Senna Plus) 1 tab PO BID PRN PRN Reason: Constipation Sodium Chloride (Saline Flush) 10 ml FLUSH ASDIRECTED PRN PRN Reason: Keep Vein Open Last Admin: 12/13/19 14:49 Dose: 10 ml Warfarin Sodium (Coumadin) 5 mg PO DAILY@1300 [facility] Last Admin: 12/14/19 12:50 Dose: 5 mg Discontinued Medications Amiodarone HCl (Cordarone) 200 mg PO DAILY [facility] Atorvastatin Calcium (Lipitor) 20 mg PO DAILY [facility] Bumetanide (Bumex) 2 mg IVPUSH ONETIME ONE Stop: 12/13/19 14:00 Last Admin: 12/13/19 14:49 Dose: 2 mg Bumetanide (Bumex) 2 mg IVPUSH ONETIME ONE Stop: 12/14/19 06:01 Last Admin: 12/14/19 06:24 Dose: 2 mg Bumetanide (Bumex) 2 mg IVPUSH ONETIME ONE Stop: 12/14/19 15:01 Last Admin: 12/14/19 15:57 Dose: 2 mg Bumetanide (Bumex) 2 mg IVPUSH ONETIME ONE Stop: 12/15/19 06:01 Last Admin: 12/15/19 05:17 Dose: 2 mg Citalopram Hydrobromide (Celexa) 10 mg PO DAILY JUDD Phytonadione 5 mg/ Sodium (Chloride) 50.5 mls @ 100 mls/hr IV NOW ONE Stop: 12/13/19 18:00 Last Admin: 12/13/19 18:29 Dose: 100 mls/hr Nicotine (Habitrol) 14 mg TRDERM ONETIME ONE Stop: 12/13/19 17:31 Last Admin: 12/13/19 18:29 Dose: 14 mg Potassium Chloride (Klor-Con M20) 40 meq PO ONETIME ONE Stop: 12/14/19 11:01 Last Admin: 12/14/19 12:49 Dose: 40 meq - Exam Quality Assessment: Denies: Supplemental Oxygen General: Reports: Alert, Oriented, Cooperative, No Acute Distress Lungs: Reports: Normal Respiratory Effort, Crackles (Few left lung base) Cardiovascular: Reports: Regular Rate, Regular Rhythm GI/Abdominal Exam: Soft, No Distention Extremities: Pedal Edema Psy/Mental Status: Reports: Alert, Normal Affect
--- NOTE | 2019-12-15 11:05 | PN ---
DATE OF SERVICE: 12/15/2019 SUBJECTIVE: Luis is a consult for left pleural effusion. He had thoracentesis done yesterday by Willi Santana MD, tolerated the procedure well. Vital signs have been stable. He has no questions or concerns. REVIEW OF SYSTEMS: Remainder of review of systems negative for any pertinent positives and negatives. OBJECTIVE: GENERAL: Luis is a 74-year-old male. VITAL SIGNS: TPR at 0700, 96.8, 62, 18, blood pressure 123/68. HEART: Regular rate and rhythm. LUNGS: Clear. Dressing over thoracentesis site will be removed per nursing staff. ASSESSMENT: 1. Thoracentesis for 04/26/2020, Willi Santana MD. 2. Congestive heart failure. PLAN: Dressing to be removed over thoracentesis site. We will evaluate nica Whitlock PA-C /[id number]
--- NOTE | 2019-12-16 08:28 | OR ---
DATE OF PROCEDURE: 12/14/2019 SURGEON: Willi Santana MD PREOPERATIVE DIAGNOSIS: Large left pleural effusion. POSTOPERATIVE DIAGNOSIS: Large left pleural effusion. PROCEDURE: Ultrasound-guided left thoracentesis ([id number]). ANESTHESIA: Local. INDICATION FOR PROCEDURE: This is a 74-year-old with underlying cardiac disease presenting with a large left pleural effusion. Plan is to proceed with thoracentesis with ultrasound guidance. Potential risks of the procedure including bleeding, infection, injury to the lung or vasculature were reviewed as well as possible need for chest tube placement should a pneumothorax occur, and the patient wishes to proceed. DETAILS OF PROCEDURE: The patient was placed in a sitting position in the hospital bed. Ultrasound was used to zaira the left posterolateral chest wall for an optimal point of thoracentesis. That area was prepped and draped and anesthetized with 1% lidocaine, and the thoracentesis catheter placed. 2600 mL of clear serous fluid was removed. As much fluid as possible was removed, and at that point the thoracentesis catheter was withdrawn. Subsequent chest x-ray showed near complete evacuation of the pleural effusion and no evident complications. The fluid was sent for full microbiologic and cytologic cell count, differential, and chemistry examination. Followup chest x-ray will be obtained tomorrow morning. Willi Santana MD /[id number]
== END 2019-12-15 11:20 | disposition home or self-care (01) | DRG 291 ==
LOC: JP.ED 13:03 → JP.MS 16:17
PROVIDERS: ADMIT Internal Medicine; ATTEND Internal Medicine
PROC: 0W9B3ZZ Drainage of Left Pleural Cavity, Percutaneous Approach (ICD-10-PCS; principal; 2019-12-14)
DX: I13.0 Hypertensive heart and chronic kidney disease with heart failure and stage 1 through stage 4 chronic kidney disease, or unspecified chronic kidney disease (principal); I25.10 Atherosclerotic heart disease of native coronary artery without angina pectoris; I50.41 Acute combined systolic (congestive) and diastolic (congestive) heart failure; I50.33 Acute on chronic diastolic (congestive) heart failure; Z86.74 Personal history of sudden cardiac arrest; I48.91 Unspecified atrial fibrillation; J90 Pleural effusion, not elsewhere classified; N17.9 Acute kidney failure, unspecified; M19.90 Unspecified osteoarthritis, unspecified site; Z95.5 Presence of coronary angioplasty implant and graft; Z95.0 Presence of cardiac pacemaker; I48.20 Chronic atrial fibrillation, unspecified; N18.9 Chronic kidney disease, unspecified; F17.200 Nicotine dependence, unspecified, uncomplicated; E78.00 Pure hypercholesterolemia, unspecified; Z88.8 Allergy status to other drugs, medicaments and biological substances; Z79.01 Long term (current) use of anticoagulants; Z79.899 Other long term (current) drug therapy; I25.2 Old myocardial infarction
CPT/HCPCS: 36415; 71045 ×2; 80053; 83880; 84484; 85025; 85610; 96374; 99284; 99285; J3490; 71046; 71046-26; 80048; 82150; 82945; 83615; 83735; 83986; 84155; 84439; 84443; 87015; 87070; 87102; 87116; 87205; 87206; 87220; 89050; 93306; 94640; A9270-GY; J2060; J3430; J7050

== ENCOUNTER 2019-12-18 20:12 | Inpatient (IN) | payer MEDICARE ==
--- NOTE | 2019-12-18 20:53 | EDM.PDOC ---
ED HPI GENERAL MEDICAL PROBLEM - General Chief Complaint: Respiratory Problem Stated Complaint: SOB Time Seen by Provider: 12/18/19 20:35 Source of Information: Reports: Patient, Old Records, RN History Limitations: Reports: No Limitations - History of Present Illness INITIAL COMMENTS - FREE TEXT/NARRATIVE: 74 yo male presents with RODNEY. He was discharged from here 3 days ago after an admission for the same during which he had pleurocentesis for a left sided effusion and diuresis with bumetanide. He improved with these interventions, but has been getting worse since discharge. No fever. His legs are bilaterally quite edematous. No chest pains. He has a PHx of chronic lung dz from tobacco abuse as well. A recent US suggested an EF of about 25% with significant mitral and tricuspid regurgitation. He did not eat any ham over the weekend. Onset: Gradual Onset Date: 12/15/19 Duration: Day(s): (3), Getting Worse Location: Reports: Chest Quality: Reports: Other (no pain) Improves with: Reports: Rest Worsens with: Reports: Movement Context: Reports: Other (See HPI) Associated Symptoms: Reports: Shortness of Breath. 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 (see below) (home meds) - Related Data Allergies Allergy/AdvReac Type Severity Reaction Status Date / Time lisinopril AdvReac Cough Verified 12/18/19 20:25 Home Meds: Home Meds Multivitamin [Multivitamins] 1 tab PO DAILY 05/26/16 [History] Citalopram Hydrobromide [Celexa] 10 mg PO BEDTIME 06/29/18 [History] Metoprolol Succinate 50 mg PO BID 06/29/18 [History] Amiodarone [Cordarone] 200 mg PO BEDTIME 12/11/19 [History] Warfarin Sodium 5 mg PO ASDIRECTED 12/11/19 [History] atorvaSTATin Calcium [Atorvastatin Calcium] 20 mg PO BEDTIME 12/11/19 [History] Cholecalciferol (Vitamin D3) [Vitamin D3] 1,000 unit PO DAILY 12/13/19 [History] Warfarin [Coumadin] 2.5 mg PO ASDIRECTED 12/13/19 [History] Bumetanide 1 mg PO DAILY #30 tablet 12/15/19 [Rx] Past Medical History Cardiovascular History: Reports: Afib, CAD, Heart Failure, High Cholesterol, Hypertension, RI, Pacemaker, Prior Cardiac Arrest Genitourinary History: Reports: Chronic Renal Insuffiency Musculoskeletal History: Reports: Arthritis, Fracture Neurological History: Reports: Head Trauma Other Neuro History: Loss conciousness from skiing Psychiatric History: Reports: Addiction - Infectious Disease History Infectious Disease History: Reports: Chicken Pox, Measles, Mumps - Past Surgical History HEENT Surgical History: Reports: Tonsillectomy Cardiovascular Surgical History: Reports: AICD, Coronary Artery Stent, Pacer Respiratory Surgical History: Reports: Thoracentesis GI Surgical History: Reports: Hernia, Inguinal Social & Family History - Family History Family Medical History: Noncontributory Cardiac: Reports: CAD - Tobacco Use Smoking Status *Q: Current Every Day Smoker Years of Tobacco use: 40 Packs/Tins Daily: 0.5 - Caffeine Use Caffeine Use: Reports: Coffee Other Caffeine Use: 8 cups per day - Recreational Drug Use Recreational Drug Use: No ED ROS GENERAL - Review of Systems Review Of Systems: See Below Constitutional: Reports: No Symptoms HEENT: Reports: No Symptoms Respiratory: Reports: Shortness of Breath, Sputum (not more than usual). Denies : Pleuritic Chest Pain, Cough, Hemoptysis Cardiovascular: Reports: Dyspnea on Exertion, Edema GI/Abdominal: Reports: No Symptoms : Reports: No Symptoms Musculoskeletal: Reports: No Symptoms Skin: Reports: No Symptoms Neurological: Reports: No Symptoms ED EXAM, GENERAL - Physical Exam Exam: See Below Exam Limited By: No Limitations General Appearance: Alert, WD/WN, No Apparent Distress Eye Exam: Bilateral Eye: Normal Inspection Ears: Normal External Exam, Normal Canal, Hearing Grossly Normal Ear Exam: Bilateral Ear: Auricle Normal, Canal Normal Nose: Normal Inspection, No Blood Throat/Mouth: Normal Inspection, Normal Lips, Normal Oropharynx, Normal Voice, No Airway Compromise Head: Atraumatic, Normocephalic Neck: Normal Inspection Respiratory/Chest: No Respiratory Distress, No Accessory Muscle Use, Rales (L base) Cardiovascular: Regular Rate, Rhythm. No: No Edema GI/Abdominal: Normal Bowel Sounds, Soft, Non-Tender, No Distention Back Exam: Normal Inspection. No: CVA Tenderness (R), CVA Tenderness (L) Extremities: Normal Inspection, Normal Range of Motion, Non-Tender, Pedal Edema. No: No Pedal Edema Neurological: Alert, Oriented, CN II-XII Intact, Normal Cognition, No Motor/ Sensory Deficits Psychiatric: Normal Affect, Normal Mood Skin Exam: Warm, Dry, Intact, Normal Color, No Rash Course - Vital Signs Last Recorded V/S: Last Vital Signs Temp 35.7 C L 12/18/19 20:28 Pulse 99 12/18/19 20:28 Resp 18 12/18/19 20:28 BP 111/61 12/18/19 20:28 Pulse Ox 96 12/18/19 20:28 - Orders/Labs/Meds Orders: Active Orders 24 hr Category Date Time Status Cardiac Monitoring [RC] .As Directed Care 12/18/19 20:27 Active Chest 1V Frontal [CR] Stat Exams 12/18/19 20:47 Taken Labs: Laboratory Tests 12/18/19 12/18/19 Range/Units 21:08 21:08 WBC 10.0 (4.5-11.0) K/uL RBC 3.82 L (4.30-5.90) M/uL Hgb 11.3 L (12.0-15.0) g/dL Hct 36.4 L (40.0-54.0) % MCV 95 (80-98) fL MCH 30 (27-31) pg MCHC 31 L (32-36) % Plt Count 209 (150-400) K/uL Sodium 140 (140-148) mmol/L Potassium 3.2 L (3.6-5.2) mmol/L Chloride 99 L (100-108) mmol/L Carbon Dioxide 29 (21-32) mmol/L Anion Gap 15.2 H (5.0-14.0) mmol/L BUN 50 H (7-18) mg/dL Creatinine 2.4 H (0.8-1.3) mg/dL Est Cr Clr Drug Dosing 33.00 mL/min Estimated GFR (MDRD) 26 L (>60) Glucose 91 (74-106) mg/dL Calcium 8.3 L (8.5-10.1) mg/dL Total Bilirubin 1.4 H (0.2-1.0) mg/dL AST 58 H (15-37) U/L ALT 76 (12-78) U/L Alkaline Phosphatase 131 H (46-116) U/L Total Protein 6.8 (6.4-8.2) g/dL Albumin 3.1 L (3.4-5.0) g/dL Globulin 3.7 H (2.3-3.5) g/dL Albumin/Globulin Ratio 0.8 L (1.2-2.2) Meds: Medications Discontinued Medications Generic Name Dose Route Start Last Admin Trade Name Freq PRN Reason Stop Dose Admin Potassium Chloride 40 meq 12/18/19 21:35 Potassium Chloride PO 12/18/19 21:36 ONETIME ONE - Radiology Interpretation Free Text/Narrative:: CXR-L pleural effusion at least as large as before his recent pleural tap. Departure - Departure Time of Disposition: 22:00 Disposition: Refer to Observation Condition: Fair Clinical Impression: Recurrent left pleural effusion, Hypokalemia - Discharge Information *PRESCRIPTION DRUG MONITORING PROGRAM REVIEWED*: Not Applicable *COPY OF PRESCRIPTION DRUG MONITORING REPORT IN PATIENT FRANCISCO: Not Applicable Referrals: PCP,None [Primary Care Provider] - Forms: ED Department Discharge Sepsis Event Note - Evaluation Sepsis Screening Result: No Definite Risk - Focused Exam Vital Signs: Vital Signs Temp Pulse Resp BP Pulse Ox 12/18/19 20:28 35.7 C L 99 18 111/61 96 Date Exam was Performed: 12/18/19 Time Exam was Performed: 21:39 - My Orders Last 24 Hours: My Active Orders 12/18/19 20:27 Cardiac Monitoring [RC] .As Directed 12/18/19 20:47 Chest 1V Frontal [CR] Stat - Assessment/Plan Last 24 Hours: My Active Orders 12/18/19 20:27 Cardiac Monitoring [RC] .As Directed 12/18/19 20:47 Chest 1V Frontal [CR] Stat
[2019-12-18] MEDS ORDERED: Potassium Chloride 10 MEQ Cap.ER PO ONE (21:35)
--- NOTE | 2019-12-18 22:09 | PCM.HP.2 ---
H&P History of Present Illness - General Date of Service: 12/18/19 Admit Problem/Dx: Left pleural effusion Source of Information: Patient History Limitations: Reports: No Limitations - History of Present Illness Initial Comments - Free Text/Narative: Patient is a 74 yo male with PMH of liver and kidney disease, a left sided pleural effusion, and likely atrial fibrillation who presents today with dyspnea on exertion and cough. He was found to have a recurrent left-sided pleural effusion. The previous thoracentesis was negative for signs of malignancy. 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 He isn't sure about his heart. He says he was having trouble if he moved. He says he is having trouble with anxiety that he says is causing him to have trouble with his breathing as well. He says he has never had this prior to last week. He is having more LE edema, he says more than he's ever had before. He is on bumex and he was taking 1, then took 2, and the swelling and breathing did not improve with the additional bumex. He says he didn't feel that he was using the bathroom more, but that he doesn't feel like it is doing as much as it was when he started taking it. Onset of Symptoms: Reports: Gradual Duration of Symptoms: Reports: Day(s): Improves with: Reports: Rest Worsens with: Reports: Movement. Denies: Rest Context: Reports: Exertion Associated Symptoms: Reports: Cough, Shortness of Breath - Related Data Allergies/Adverse Reactions: Allergies Allergy/AdvReac Type Severity Reaction Status Date / Time lisinopril AdvReac Cough Verified 12/18/19 20:25 Home Medications: Home Meds Multivitamin [Multivitamins] 1 tab PO DAILY 05/26/16 [History] Citalopram Hydrobromide [Celexa] 10 mg PO BEDTIME 06/29/18 [History] Metoprolol Succinate 50 mg PO BID 06/29/18 [History] Amiodarone [Cordarone] 200 mg PO BEDTIME 12/11/19 [History] Warfarin Sodium 5 mg PO ASDIRECTED 12/11/19 [History] atorvaSTATin Calcium [Atorvastatin Calcium] 20 mg PO BEDTIME 12/11/19 [History] Cholecalciferol (Vitamin D3) [Vitamin D3] 1,000 unit PO DAILY 12/13/19 [History] Warfarin [Coumadin] 2.5 mg PO ASDIRECTED 12/13/19 [History] Bumetanide 1 mg PO DAILY #30 tablet 12/15/19 [Rx] Past Medical History Cardiovascular History: Reports: Afib, CAD, Heart Failure, High Cholesterol, Hypertension, [place], Pacemaker, Prior Cardiac Arrest Gastrointestinal History: Reports: Cirrhosis Genitourinary History: Reports: Chronic Renal Insuffiency, Renal Disease Musculoskeletal History: Reports: Arthritis, Fracture Neurological History: Reports: Head Trauma Other Neuro History: Loss conciousness from skiing Psychiatric History: Reports: Addiction - Infectious Disease History Infectious Disease History: Reports: Chicken Pox, Measles, Mumps - Past Surgical History HEENT Surgical History: Reports: Tonsillectomy Cardiovascular Surgical History: Reports: AICD, Coronary Artery Stent, Pacer Respiratory Surgical History: Reports: Thoracentesis GI Surgical History: Reports: Hernia, Inguinal Social & Family History - Family History Family Medical History: Noncontributory Cardiac: Reports: CAD - Tobacco Use Smoking Status *Q: Current Every Day Smoker Years of Tobacco use: 40 Packs/Tins Daily: 0.5 - Caffeine Use Caffeine Use: Reports: Coffee Other Caffeine Use: 8 cups per day - Recreational Drug Use Recreational Drug Use: No H&P Review of Systems - Review of Systems: Review Of Systems: See Below General: Denies: Fever, Chills, Fatigue HEENT: Denies: Ear Pain, Eye Pain, Headaches, Sinus Congestion Pulmonary: Reports: Shortness of Breath, Cough Cardiovascular: Reports: Dyspnea on Exertion, Orthopnea, Edema. Denies: Chest Pain, Palpitations, Syncope Gastrointestinal: Reports: Abdominal Pain. Denies: Black Stool, Bloody Stool, Constipation, Diarrhea Genitourinary: Denies: Frequency, Urgency, Retention Musculoskeletal: Reports: No Symptoms Skin: Reports: Bruising (POA from IV last week). Denies: Cyanosis, Mottled, Pallor Psychiatric: Denies: Confusion, Depression, Mood Lability, Anxiety, Agitation, Hallucinations Neurological: Denies: Confusion, Dizziness Hematologic/Lymphatic: Reports: Anemia, Easy Bleeding, Easy Bruising Immunologic: Reports: No Symptoms Exam - Exam Exam: See Below - Vital Signs Vital Signs: Last Vital Signs Temp 35.7 C L 12/18/19 20:28 Pulse 99 12/18/19 20:28 Resp 18 12/18/19 20:28 BP 111/61 12/18/19 20:28 Pulse Ox 96 12/18/19 20:28 Weight: 91.6 kg - Exam General: Alert, Oriented, Cooperative. No: Mild Distress HEENT: PERRLA, Hearing Intact, Mucosa Moist & [place], Nares Patent, Normal Nasal Septum, Posterior Pharynx Clear, Conjunctiva Clear, EOMI, EACs Clear, TMs Clear Neck: Supple, Trachea Midline, 2 Lungs: Normal Respiratory Effort, Decreased Breath Sounds (LL, no breath sounds) GI/Abdominal Exam: Normal Bowel Sounds, Soft, Non-Tender, No Organomegaly, No Distention, No Abnormal Bruit, No Mass, Pelvis Stable (Male) Exam: Deferred Rectal (Males) Exam: Deferred Back Exam: Normal Inspection, Full Range of Motion, NT Extremities: Normal Inspection, Normal Range of Motion, Non-Tender, Normal Capillary Refill, Pedal Edema Skin: Warm, Dry, Intact, Other (bruise on L arm, POA from previous IV) Neurological: Cranial Nerves Intact, Reflexes Equal Bilateral Neuro Extensive - Mental Status: Alert, Oriented x3, Normal Mood/Affect, Normal Cognition Neuro Extensive - Motor, Sensory, Reflexes: CN II-XII Intact, Normal Gait, Normal Reflexes Psychiatric: Alert, Normal Affect, Normal Mood - Patient Data Lab Results Last 24 hrs: Laboratory Results - last 24 hr 12/18/19 12/18/19 Range/Units 21:08 21:08 WBC 10.0 (4.5-11.0) K/uL RBC 3.82 L (4.30-5.90) M/uL Hgb 11.3 L (12.0-15.0) g/dL Hct 36.4 L (40.0-54.0) % MCV 95 (80-98) fL MCH 30 (27-31) pg MCHC 31 L (32-36) % Plt Count 209 (150-400) K/uL Sodium 140 (140-148) mmol/L Potassium 3.2 L (3.6-5.2) mmol/L Chloride 99 L (100-108) mmol/L Carbon Dioxide 29 (21-32) mmol/L Anion Gap 15.2 H (5.0-14.0) mmol/L BUN 50 H (7-18) mg/dL Creatinine 2.4 H (0.8-1.3) mg/dL Est Cr Clr Drug Dosing 33.00 mL/min Estimated GFR (MDRD) 26 L (>60) Glucose 91 (74-106) mg/dL Calcium 8.3 L (8.5-10.1) mg/dL Total Bilirubin 1.4 H (0.2-1.0) mg/dL AST 58 H (15-37) U/L ALT 76 (12-78) U/L Alkaline Phosphatase 131 H (46-116) U/L Total Protein 6.8 (6.4-8.2) g/dL Albumin 3.1 L (3.4-5.0) g/dL Globulin 3.7 H (2.3-3.5) g/dL Albumin/Globulin Ratio 0.8 L (1.2-2.2) Result Diagrams: 12/18/19 21:08 12/18/19 21:08 Sepsis Event Note - Evaluation Sepsis Screening Result: No Definite Risk - Focused Exam Vital Signs: Vital Signs Temp Pulse Resp BP Pulse Ox 12/18/19 20:28 35.7 C L 99 18 111/61 96 Date Exam was Performed: 12/18/19 Time Exam was Performed: 23:22 - Problem List (1) Recurrent left pleural effusion SNOMED Code(s): 53179343, 16517747 ICD Code: J90 - PLEURAL EFFUSION, NOT ELSEWHERE CLASSIFIED Status: Acute Current Visit: Yes Problem Details: Will order repeat CXR in AM, INR, for expectant thoracentesis. Will diurese patient as he says the oral medication is not working well. Could consider adding spironolactone to help with possible diuresis with unknown level of liver disease from alcohol if Cr improves after diuresis (2) Acute combined systolic and diastolic CHF, NYHA class 3 SNOMED Code(s): 791378965009036, 990138920, 192526258933884 ICD Code: I50.41 - ACUTE COMBINED SYSTOLIC AND DIASTOLIC (CONGESTIVE) HRT FAIL Status: Acute Current Visit: No Problem Details: Will continue with aggressive diuresis to help with pedal edema and pleural effusion (3) Hypokalemia SNOMED Code(s): 33586376 ICD Code: E87.6 - HYPOKALEMIA Status: Acute Current Visit: Yes Problem Details: Patient given K+ in ED will recheck in AM after diuresis before giving additional doses of KCL (4) Acute kidney injury superimposed on chronic kidney disease SNOMED Code(s): 93144543 ICD Code: N17.9 - ACUTE KIDNEY FAILURE, UNSPECIFIED; N18.9 - CHRONIC KIDNEY DISEASE, UNSPECIFIED Status: Acute Current Visit: No Problem Details: Will monitor renal function and avoid nephrotoxic medications (5) History of atrial fibrillation SNOMED Code(s): 168519373 ICD Code: Z86.79 - PERSONAL HISTORY OF OTHER DISEASES OF THE CIRCULATORY SYSTEM Status: Chronic Current Visit: No Problem Details: Will continue amiodarone and cardiac monitoring (6) Tobacco dependence syndrome SNOMED Code(s): 60654664 ICD Code: F17.200 - NICOTINE DEPENDENCE, UNSPECIFIED, UNCOMPLICATED Status : Chronic Current Visit: No Problem Details: Will order nicotine patches for patient (7) Emphysema, unspecified SNOMED Code(s): 65171409 ICD Code: J43.9 - EMPHYSEMA, UNSPECIFIED Status: Chronic Current Visit: No Problem Details: Duonebs ordered PRN in case of wheezing or worsening SOB Qualifiers: Emphysema type: unspecified Qualified Code(s): J43.9 - Emphysema, unspecified (8) Type 2 diabetes mellitus SNOMED Code(s): 61039442 ICD Code: E11.9 - TYPE 2 DIABETES MELLITUS WITHOUT COMPLICATIONS Status: Chronic Current Visit: No Problem Details: Patient uses diet and exercise to control disease, does require/request some help with foot care if possible while inpatient Qualifiers: Diabetes mellitus halfway insulin use: without ocean transportation intermediary use Diabetes mellitus complication status: without complication Qualified Code(s): E11.9 - Type 2 diabetes mellitus without complications Problem List Initiated/Reviewed/Updated: Yes Orders Last 24hrs: Active Orders 24 hr Category Date Time Status Cardiac Monitoring [RC] .As Directed Care 12/18/19 20:27 Active Chest 1V Frontal [CR] Stat Exams 12/18/19 20:47 Taken Resuscitation Status 12/18/19 23:04 Resuscitation Status Routine Resuscitation Status: Full Code Special Instructions: Has advanced directives Abbreviations used in this policy: *Cardiopulmonary Resuscitation (CPR) *Do Not Resuscitate (DNR) *Do Not Intubate (DNI) Code status categories recognized at [facility] 1. Full Code a. If a patient experiences cardiac or respiratory arrest, all resuscitation efforts (including CPR, defibrillation, and airway management) will be performed. b. Patients without a specific code status order other than Full Code will be assumed to be Full Code Status. Intubation CPR Defibrillation YES YES YES 2. DNR a. If there are changes in the patients' vital signs and condition, including respiratory arrest, treatment with medications and intubation, if indicated will be performed. b. If a patient experiences cardiac arrest, resuscitation efforts (CPR and Defibrillation) will not be performed. Intubation CPR Defibrillation YES NO NO 3. DNR/DNI a. If there are changes in the patient's vital signs and condition, including respiratory arrest, treatment with medications and noninvasive airway management/positive pressure ventilation, if indicated will be performed b. If a patient experiences a cardiac arrest, resuscitation efforts ( including CPR, defibrillation and intubation) will not be performed. Intubation CPR Defibrillation NO NO NO 4. DNR/DNI/Comfort Measures a. All medical and nursing interventions will be for the sole purpose of providing pain/symptom management for the patient. b. If a patient experiences a cardiac or respiratory arrest, resuscitation efforts (including CPR, defibrillation and intubation) will not be performed. Intubation CPR Defibrillation No NO NO ACTIVE MED ORDERS Generic Name Dose Route Start Last Admin Trade Name Freq PRN Reason Stop Dose Admin Acetaminophen 650 mg 12/18/19 23:08 Tylenol PO Q4H PRN Pain (Mild 1-3)/fever Hydrocodone Bitart/Acetaminophen 2 tab 12/18/19 23:08 [place] 325-5 Mg PO Q4H PRN Pain (moderate 4-6) Albuterol/Ipratropium 3 ml 12/18/19 23:08 Duoneb 3.0-0.5 Mg/3 Ml NEB QID PRN Shortness Of Breath/wheezing Atorvastatin Calcium 20 mg 12/19/19 21:00 Lipitor PO BEDTIME JUDD Bumetanide 2 mg 12/19/19 00:05 Bumex IVPUSH Q12H JUDD Promethazine HCl 12.5 mg/ 50.5 mls @ 200 mls/hr 12/18/19 23:08 Sodium Chloride IV Q6H PRN Nausea/Vomiting Albumin Human 25 gm in 100 mls @ 25 mls/hr 12/18/19 23:18 Albumin 25% IV 12/19/19 03:17 ONETIME ONE Nicotine 21 mg 12/18/19 23:15 Habitrol TRDERM DAILY [facility] Ondansetron HCl 4 mg 12/18/19 23:08 Zofran Odt PO Q6H PRN Nausea able to take PO Warfarin Sodium 1 each 12/19/19 09:00 Coumadin Sliding Scale PO DAILY [facility] ACTIVE NON-MED ORDERS/Dietary 12/18/19 Breakfast Consistent Carbohydrate Diet [DIET] Comment: ACTIVE NON-MED ORDERS/Care 12/18/19 20:27 Cardiac Monitoring [RC] .As Directed 12/18/19 23:04 Oxygen Therapy [RC] PRN Maintain SpO2% greater than: 92 Oxygen Therapy Mode, Primary: Nasal Cannula Oxygen Flow Rate (L/min): 2 Oxygen Therapy Mode, Secondary: Nasal Cannula Flow Rate (L/min), Secondary: 4 Vital Signs [RC] Q4H 12/18/19 23:08 Ambulate [RC] QID Antiembolic Devices [RC] .Routine Bedrest Bathroom Privileges [RC] ASDIRECTED Cardiac Monitoring [RC] CONTINUOUS Intake and Output [RC] QSHIFT May Shower [RC] ASDIRECTED Oxygen Therapy [RC] PRN Maintain SpO2% greater than: 92 Oxygen Therapy Mode, Primary: Nasal Cannula Oxygen Flow Rate (L/min): 2 Oxygen Therapy Mode, Secondary: Nasal Cannula Flow Rate (L/min), Secondary: 4 Up ad Giovanna [RC] ASDIRECTED Vital Signs [RC] Q4H 12/18/19 23:09 Pulse Oximetry [RC] CONTINUOUS 12/18/19 23:12 RT Aerosol Therapy [RC] ASDIRECTED 12/18/19 23:23 Foot Care [RC] ASDIRECTED ACTIVE NON-MED ORDERS/Orderable Interventions Activity, Ambulate Start: 12/18/19 23: 08 Freq: QID Status: Active Protocol: Document 12/18/19 23:08 SF (Rec: 12/18/19 23:27 [id number]) Activity, Bedrest Bathroom Privileges Start: 12/18/19 23: 08 Freq: ASDIRECTED Status: Active Protocol: Document 12/18/19 23:08 SF (Rec: 12/18/19 23:27 SF [id number]) Activity, Up ad Giovanna Start: 12/18/19 23: 08 Freq: ASDIRECTED Status: Active Protocol: Document 12/18/19 23:08 SF (Rec: 12/18/19 23:27 SF [id number]) Antiembolic Devices Start: 12/18/19 23: 08 Text: Status: Active Freq: .Routine Protocol: Cardiac Monitoring/Telemetry Start: 12/18/19 20: 27 Text: Status: Active Freq: .As Directed Protocol: Cardiac Monitoring/Telemetry Start: 12/18/19 23: 08 Text: Status: Active Freq: CONTINUOUS Protocol: Foot Care Start: 12/18/19 23: 23 Freq: ASDIRECTED Status: Active Protocol: Document 12/18/19 23:23 SF (Rec: 12/18/19 23:30 SF [id number]) Hygiene, May Shower Start: 12/18/19 23: 08 Freq: ASDIRECTED Status: Active Protocol: Document 12/18/19 23:08 SF (Rec: 12/18/19 23:31 SF [id number]) Intake and Output Start: 12/18/19 23: 08 Text: Status: Active Freq: QSHIFT Protocol: Oxygen Therapy Start: 12/18/19 23: 04 Freq: PRN Status: Active Protocol: Oxygen Therapy Start: 12/18/19 23: 08 Freq: PRN Status: Active Protocol: Pulse Oximetry Start: 12/18/19 23: 09 Freq: CONTINUOUS Status: Active Protocol: RT Aerosol Therapy Assessment Start: 12/18/19 23: 12 Text: Status: Active Freq: ASDIRECTED Protocol: Vital Signs Start: 12/18/19 23: 04 Text: Click to edit a change in frequency and times. Status: Active Freq: Q4H Protocol: VS.TEMP Document 12/18/19 22:00 AJM (Rec: 12/18/19 23:29 [facility] [id number]) Vital Signs Start: 12/18/19 23: 08 Text: Click to edit a change in frequency and times. Status: Active Freq: Q4H Protocol: VS.TEMP ACTIVE NON-MED ORDERS/Imaging and X-Ray 12/18/19 20:47 Chest 1V Frontal [CR] Stat Is Patient : Mode Of Transportation: Cart Reason For Exam: hx of CHF w/ effusions, now with RODNEY 12/19/19 08:08 Chest 2V [CR] Routine Is Patient : Mode Of Transportation: Wheelchair Reason For Exam: Pleural Effusion ACTIVE NON-MED ORDERS/LAB 12/19/19 07:05 GLYCOSYLATED HEMOGLOBIN,HGBA1C [CHEM] Stat Comment: Specimen: Send someone from the department to collect 12/19/19 07:08 CBC WITH AUTO DIFF [HEME] Routine Comment: Specimen: Send someone from the department to collect COMPREHENSIVE METABOLIC PN,CMP [CHEM] Routine Comment: Specimen: Send someone from the department to collect INR,PT,PROTHROMBIN TIME [COAG] Routine Comment: Specimen: Send someone from the department to collect ACTIVE ORDERS/MEDS 12/18/19 23:08 Acetaminophen [Tylenol] 650 mg PO Q4H PRN Acetaminophen/HYDROcodone [[place] 325-5 MG] 2 tab PO Q4H PRN Albuterol/Ipratropium [DuoNeb 3.0-0.5 MG/3 ML] 3 ml NEB QID PRN Ondansetron [Zofran ODT] 4 mg PO Q6H PRN Promethazine [Phenergan] 12.5 mg Sodium Chloride 0.9% [Normal Saline] 50 ml IV Q6H 12/18/19 23:15 Nicotine [Habitrol] 21 mg TRDERM DAILY 12/18/19 23:18 Albumin Human [Albumin 25%] 25 gm in 100 ml IV ONETIME 12/19/19 00:05 Bumetanide [Bumex] 2 mg IVPUSH Q12H 12/19/19 09:00 Warfarin Sliding Scale [Coumadin Sliding Scale] 1 each PO DAILY 12/19/19 21:00 atorvaSTATin [Lipitor] 20 mg PO BEDTIME ACTIVE NON-MED ORDERS/Other 12/18/19 23:04 Patient Status [ADT] Routine Patient Status: Admit to Inpatient Admission Diagnosis/Problem: Pleural effusion on left Reason for Admit: Pleural effusion, CHF, CKD, Nurse Unit Type: Medical-Surgical Location Preference: 224, near nurses station Admitting Physician: Carlie Felix Attending Physician: Jon Larson Special Instructions: Patient would like to be near nurses station Medicare 96 Hour Certification Statement: This Patient is Admitted for Inpatient Services and is Medically Appropriate and Meets Medical Necessity for Inpatient Admission. I Reasonably Expect the Patient will Require Inpatient Services that Span a Period of Over 2 Midnights. My Rationale for Medically Necessary Inpatient Care will be Found in the Admission History & Physical and Progress Notes. I Reasonably Expect the Patient to be Discharged or Transferred within 96 Hours After Admission to this [facility]. Provider Acknowledgement/Certification: Carlie Felix 12/18/19 23:09 Antiembolic Hose [OM.PC] Per Unit Routine Comment: Sequential Compression Device [OM.PC] Per Unit Routine Comment: - Mortality Measure Prognosis:: Good
[2019-12-18] MEDS ORDERED: Albuterol/Ipratropium 3.0-0.5 MG/3 ML Neb Soln NEB PRN (23:08)
[2019-12-18] MEDS ORDERED: Acetaminophen 325 MG Tab PO PRN (23:08)
[2019-12-18] MEDS ORDERED: Promethazine 12.5 MG in Sodium Chloride 0.9% 50 ML IV PRN (23:08)
[2019-12-18] MEDS ORDERED: Ondansetron 4 MG Tab.DIS PO PRN (23:08)
[2019-12-18] MEDS ORDERED: Acetaminophen/HYDROcodone 325-5 MG Tab PO PRN (23:08)
[2019-12-18] MEDS ORDERED: Spironolactone 25 MG Tab PO SCH (23:15)
[2019-12-18] MEDS ORDERED: Amiodarone 200 MG Tab PO ONE (23:16)
[2019-12-19] MEDS: Nicotine 21 MG/24 Hr Patch TRDERM SCH ×3 (00:04→08:39)
[2019-12-19] MEDS ORDERED: Bumetanide 2.5 MG/10 ML MDV IVPUSH SCH ×2 (00:05→16:00)
[2019-12-19] MEDS: LORazepam 0.5 MG Tab PO PRN ×2 (00:42→22:04)
[2019-12-19 07:11] LABS: HEMOGLOBIN A1C 6.4 % (4.5-6.2)
[2019-12-19] MEDS ORDERED: Warfarin Sliding Scale PO SCH (09:00)
--- NOTE | 2019-12-19 11:06 | CR ---
CHEST: Portable at 12/18/2019 at 902 PM CLINICAL HISTORY:History of CHF and effusion, RODNEY COMPARISON:12/15/2019 FINDINGS: Heart is enlarged. Pulmonary vascularity appears normal. Patient has permanent cardiac pacer/defibrillator. There is been some reaccumulation of left pleural effusion. There is underlying airspace disease in both lower lobes left greater than right.. IMPRESSION: There is some reaccumulation of left pleural fluid. Persistent bibasal airspace disease left greater than right
--- NOTE | 2019-12-19 11:15 | CR ---
CHEST: 2 view CLINICAL HISTORY:Left effusion COMPARISON:12/18/2019 FINDINGS: Heart is enlarged. Pulmonary vascularity is normal. Patient has a permanent cardiac pacer/fibrillator. There are atherosclerotic changes in the aorta. There is a persistent left pleural effusion similar to the prior day study. There is some underlying airspace disease both lower lung lion left greater than. Impression: Left pleural effusion similar to prior day Bibasilar airspace disease left greater than right similar to prior study
--- NOTE | 2019-12-19 14:18 | PCM.PN ---
- General Info Date of Service: 12/19/19 Subjective Update: Mr. Garcia is a 74-year-old gentleman who was admitted early this morning through the emergency department with recurrent shortness of breath, secondary to acute on chronic diastolic and systolic congestive heart failure with recurrent left pleural effusion. He also has known underlying chronic kidney disease stage IV. He was hospitalized at this facility last week and did undergo thoracentesis and diuresis, he felt well with significant improvement in shortness of breath at the time of discharge. After a few days at home he began to note recurrent symptoms of increased shortness of breath with minimal activity as well as orthopnea. He has not had a significant increase in his peripheral edema from discharge. X-ray shows evidence of recurrent left pleural effusion as well as pulmonary edema. Echocardiogram obtained during his last admission shows severely decreased left ventricular function with estimated ejection fraction of 25 to 30%, biatrial enlargement, right heart failure, elevated right-sided pressures, and severe mitral regurgitation. Functional Status: Reports: Tolerating Diet, Urinating - Review of Systems General: Reports: Weakness, Fatigue. Denies: Fever, Chills Pulmonary: Reports: Shortness of Breath. Denies: Pleuritic Chest Pain, Cough, Sputum, Hemoptysis, Wheezing Cardiovascular: Reports: Dyspnea on Exertion, Orthopnea, Edema. Denies: Chest Pain, Palpitations, PND, Lightheadedness Gastrointestinal: Reports: No Symptoms - Patient Data Vitals - Most Recent: Last Vital Signs Temp 97.0 F 12/19/19 10:31 Pulse 60 12/19/19 10:31 Resp 18 12/19/19 10:31 BP 117/57 L 12/19/19 10:31 Pulse Ox 95 12/19/19 10:31 Weight - Most Recent: 194 lb 9.597 oz I&O - Last 24 Hours: Intake & Output 12/18/19 12/19/19 12/19/19 22:59 06:59 14:59 Intake Total 100 240 Output Total 300 120 Balance -200 120 Lab Results Last 24 Hours: Laboratory Results - last 24 hr 12/18/19 12/18/19 12/19/19 Range/Units 21:08 21:08 06:49 WBC 10.0 (4.5-11.0) K/uL RBC 3.82 L (4.30-5.90) M/uL Hgb 11.3 L (12.0-15.0) g/dL Hct 36.4 L (40.0-54.0) % MCV 95 (80-98) fL MCH 30 (27-31) pg MCHC 31 L (32-36) % Plt Count 209 (150-400) K/uL Neut % (Auto) (36-66) % Lymph % (Auto) (24-44) % [place] % (Auto) (2-6) % Eos % (Auto) (2-4) % Baso % (Auto) (0-1) % PT (9.5-12.0) sec INR (0.80-1.20) Sodium 140 (140-148) mmol/L Potassium 3.2 L (3.6-5.2) mmol/L Chloride 99 L (100-108) mmol/L Carbon Dioxide 29 (21-32) mmol/L Anion Gap 15.2 H (5.0-14.0) mmol/L BUN 50 H (7-18) mg/dL Creatinine 2.4 H (0.8-1.3) mg/dL Est Cr Clr Drug Dosing 33.00 mL/min Estimated GFR (MDRD) 26 L (>60) Glucose 91 (74-106) mg/dL Hemoglobin A1c 6.4 H (4.5-6.2) % Calcium 8.3 L (8.5-10.1) mg/dL Total Bilirubin 1.4 H (0.2-1.0) mg/dL AST 58 H (15-37) U/L ALT 76 (12-78) U/L Alkaline Phosphatase 131 H (46-116) U/L Total Protein 6.8 (6.4-8.2) g/dL Albumin 3.1 L (3.4-5.0) g/dL Globulin 3.7 H (2.3-3.5) g/dL Albumin/Globulin Ratio 0.8 L (1.2-2.2) 12/19/19 12/19/19 12/19/19 Range/Units 06:49 06:49 06:49 WBC 8.5 (4.5-11.0) K/uL RBC 3.86 L (4.30-5.90) M/uL Hgb 11.6 L (12.0-15.0) g/dL Hct 36.8 L (40.0-54.0) % MCV 95 (80-98) fL MCH 30 (27-31) pg MCHC 32 (32-36) % Plt Count 206 (150-400) K/uL Neut % (Auto) 77 H (36-66) % Lymph % (Auto) 11 L (24-44) % [place] % (Auto) 11 H (2-6) % Eos % (Auto) 1 L (2-4) % Baso % (Auto) 0 (0-1) % PT 19.7 H (9.5-12.0) sec INR 1.89 H (0.80-1.20) Sodium 141 (140-148) mmol/L Potassium 3.9 (3.6-5.2) mmol/L Chloride 101 (100-108) mmol/L Carbon Dioxide 29 (21-32) mmol/L Anion Gap 11.1 (5.0-14.0) mmol/L BUN 51 H (7-18) mg/dL Creatinine 2.3 H (0.8-1.3) mg/dL Est Cr Clr Drug Dosing 34.11 mL/min Estimated GFR (MDRD) 28 L (>60) Glucose 94 (74-106) mg/dL Hemoglobin A1c (4.5-6.2) % Calcium 8.3 L (8.5-10.1) mg/dL Total Bilirubin 1.9 H (0.2-1.0) mg/dL AST 58 H (15-37) U/L ALT 72 (12-78) U/L Alkaline Phosphatase 122 H (46-116) U/L Total Protein 6.7 (6.4-8.2) g/dL Albumin 3.3 L (3.4-5.0) g/dL Globulin 3.4 (2.3-3.5) g/dL Albumin/Globulin Ratio 1.0 L (1.2-2.2) Med Orders - Current: Current Medications Acetaminophen (Tylenol) 650 mg PO Q4H PRN PRN Reason: Pain (Mild 1-3)/fever Hydrocodone Bitart/Acetaminophen ([place] 325-5 Mg) 2 tab PO Q4H PRN PRN Reason: Pain (moderate 4-6) Albuterol/Ipratropium (Duoneb 3.0-0.5 Mg/3 Ml) 3 ml NEB QID PRN PRN Reason: Shortness Of Breath/wheezing Atorvastatin Calcium (Lipitor) 20 mg PO BEDTIME [facility] Bumetanide (Bumex) 2 mg IVPUSH Q12H [facility] Promethazine HCl 12.5 mg/ (Sodium Chloride) 50.5 mls @ 200 mls/hr IV Q6H PRN PRN Reason: Nausea/Vomiting Lorazepam (Ativan) 0.5 mg PO BEDTIME PRN PRN Reason: Anxiety Last Admin: 12/19/19 00:42 Dose: 0.5 mg Nicotine (Habitrol) 21 mg TRDERM DAILY [facility] Last Admin: 12/19/19 08:39 Dose: Not Given Ondansetron HCl (Zofran Odt) 4 mg PO Q6H PRN PRN Reason: Nausea able to take PO Discontinued Medications Amiodarone HCl (Cordarone) 200 mg PO ONETIME ONE Stop: 12/18/19 23:17 Last Admin: 12/18/19 23:59 Dose: 200 mg Bumetanide (Bumex) 2 mg IVPUSH Q12H [facility] Last Admin: 12/19/19 04:48 Dose: 2 mg Albumin Human (Albumin 25%) 25 gm in 100 mls @ 25 mls/hr IV ONETIME ONE Stop: 12/19/19 03:17 Last Admin: 12/18/19 23:57 Dose: 25 mls/hr Potassium Chloride (Potassium Chloride) 40 meq PO ONETIME ONE Stop: 12/18/19 21:36 Last Admin: 12/18/19 21:54 Dose: 40 meq Spironolactone (Aldactone) 25 mg PO DAILY [facility] Last Admin: 12/19/19 00:03 Dose: Not Given Warfarin Sodium (Coumadin Sliding Scale) 1 each PO DAILY [facility] Last Admin: 12/19/19 10:19 Dose: Not Given - Exam Quality Assessment: DVT Prophylaxis General: Alert, Oriented, Cooperative, Mild Distress Lungs: Clear to Auscultation, Normal Respiratory Effort, Decreased Breath Sounds (Left base). No: Rales, Rhonchi Cardiovascular: Regular Rate, Regular Rhythm, No Murmurs GI/Abdominal Exam: Soft, Non-Tender, No Organomegaly, No Distention Extremities: Non-Tender, Pedal Edema Sepsis Event Note - Evaluation Sepsis Screening Result: No Definite Risk - Focused Exam Vital Signs: Vital Signs Temp Pulse Resp BP Pulse Ox 12/19/19 10:31 97.0 F 60 18 117/57 L 95 12/19/19 07:21 92 L 12/19/19 06:59 96.7 F L 60 16 109/60 95 12/19/19 04:00 97.8 F 64 18 120/71 96 Date Exam was Performed: 12/19/19 Time Exam was Performed: 14:19 - Problem List Review Problem List Initiated/Reviewed/Updated: Yes - My Orders Last 24 Hours: My Active Orders 12/19/19 14:13 Consult to Physician [CONS] Routine Phytonadione [AquaMephyton] 1 mg Sodium Chloride 0.9% [Normal Saline] 50 ml IV ONETIME 12/19/19 14:14 Notify Provider Consults [RC] ASDIRECTED 12/19/19 18:00 Bumetanide [Bumex] 2 mg IVPUSH Q12H 12/20/19 05:00 COMPREHENSIVE METABOLIC PN,CMP [CHEM] Timed INR,PT,PROTHROMBIN TIME [COAG] Timed 12/20/19 07:00 Needle Placement Comp Lt [US] Urgent - Plan Plan:: ASSESSMENT AND PLAN Acute combined systolic and diastolic congestive heart failure-lying severe mitral regurgitation. Stable since admission but has not noted significant improvement in shortness of breath, recurrent large left pleural effusion. Cardiogram obtained during last visit shows severe systolic heart failure with estimated ejection fraction 25 to 30%, as well as significant diastolic dysfunction and severe mitral regurgitation. -Strict intake and output monitoring -Bumex 2 mg IV every 12 hours -Continue beta-shilo Large left pleural effusion-current despite thoracentesis done last week -Ultrasound marking -Surgical consultation for thoracentesis in a.m. Kidney disease stage IV-years that current creatinine is his new baseline, significantly worse from previous labs. -Diuresis as above -Repeat labs in the morning Chronic atrial fibrillation-he was chronically anticoagulated but this was reversed for the procedure. -Resume warfarin after thoracentesis -INR in the morning -Continue rate control Maintenance issues - - DVT prophylaxis -mechanical - GI prophylaxis -not indicated - Nutrition -low-sodium Disposition -I would anticipate discharge home after the hospital stay Primary care physician -Candy ANNA
[2019-12-19] MEDS ORDERED: Phytonadione 1 MG in Sodium Chloride 0.9% 50 ML IV ONE (15:00)
[2019-12-19] MEDS: Bumetanide 2.5 MG/10 ML MDV IVPUSH SCH (18:14)
[2019-12-19] MEDS: Metoprolol Succinate 50 MG Tab.ER PO SCH (20:47)
[2019-12-19] MEDS: Amiodarone 200 MG Tab PO SCH (20:50)
[2019-12-19] MEDS: atorvaSTATin 20 MG Tab PO SCH (20:50)
[2019-12-19] MEDS: Citalopram 10 MG Tab PO SCH (20:50)
[2019-12-20] MEDS: Bumetanide 2.5 MG/10 ML MDV IVPUSH SCH ×2 (05:52→17:41)
--- NOTE | 2019-12-20 08:21 | PN ---
DATE OF SERVICE: 12/20/2019 SUBJECTIVE: Luis was admitted yesterday for recurrent left pleural effusion. He will be having ultrasound and left thoracentesis. Vital signs have been stable. He has been afebrile. Reports some shortness of breath. REVIEW OF SYSTEMS: Remainder of review of systems negative for any pertinent positives and negatives. OBJECTIVE: GENERAL: Luis is a pleasant 74-year-old male. He is alert and orientated. VITAL SIGNS: TPR is 96.8, 60, 18. Blood pressure 110/65, O2 sats by pulse oximetry is 97% on 1.5 L. HEENT: Negative. NECK: Supple. HEART: Regular rate and rhythm. LUNGS: Reveal decreased breath sounds in bases, left greater than right. ABDOMEN: Negative. EXTREMITIES: Negative. ASSESSMENT: 1. Recurrent shortness of breath. 2. Acute on chronic diastolic and systolic congestive heart failure with recurrent left pleural effusion. PLAN: Thoracentesis will be done by Willi Santana MD sometime today. We will evaluate p.r.n. or in a.m. Teri Whitlock PA-C /[id number]
[2019-12-20] MEDS: Metoprolol Succinate 50 MG Tab.ER PO SCH ×2 (09:16→20:50)
[2019-12-20] MEDS: Nicotine 21 MG/24 Hr Patch TRDERM SCH (09:22)
--- NOTE | 2019-12-20 10:19 | CR ---
CHEST: Portable 12/20/2019 at 9:16 AM CLINICAL HISTORY:Postthoracentesis COMPARISON:12/19/2019 FINDINGS: There is significant decrease in left pleural fluid when compared to prior study. There is no evidence of pneumothorax. The there is improved aeration of both lung bases. IMPRESSION: Significant reduction in left pleural effusion Improved aeration in both lower lung lion
--- NOTE | 2019-12-20 11:38 | PCM.PN ---
- General Info Date of Service: 12/20/19 Subjective Update: Mr. Garcia has been stable since yesterday. Improvement in shortness of breath following thoracentesis earlier this morning by Dr. Santana. Fair diuresis over the last 24 hours with improvement in shortness of breath and peripheral edema. Functional Status: Reports: Tolerating Diet, Ambulating, Urinating - Review of Systems General: Reports: Weakness. Denies: Fever, Chills Pulmonary: Reports: Shortness of Breath. Denies: Pleuritic Chest Pain, Cough, Sputum, Hemoptysis, Wheezing Cardiovascular: Reports: Dyspnea on Exertion. Denies: Chest Pain, Palpitations , Orthopnea, PND, Edema, Lightheadedness Gastrointestinal: Reports: No Symptoms - Patient Data Vitals - Most Recent: Last Vital Signs Temp 97.1 F 12/20/19 11:23 Pulse 68 12/20/19 11:23 Resp 16 12/20/19 11:23 BP 95/55 L 12/20/19 11:23 Pulse Ox 100 12/20/19 11:23 Weight - Most Recent: 194 lb 9.597 oz I&O - Last 24 Hours: Intake & Output 12/19/19 12/20/19 12/20/19 22:59 06:59 14:59 Intake Total 850 Output Total 740 200 900 Balance 110 -200 -900 Lab Results Last 24 Hours: Laboratory Results - last 24 hr 12/20/19 12/20/19 Range/Units 05:00 05:00 PT 16.6 H (9.5-12.0) sec INR 1.58 H (0.80-1.20) Sodium 142 (140-148) mmol/L Potassium 3.7 (3.6-5.2) mmol/L Chloride 102 (100-108) mmol/L Carbon Dioxide 31 (21-32) mmol/L Anion Gap 9.4 (5.0-14.0) mmol/L BUN 53 H (7-18) mg/dL Creatinine 2.3 H (0.8-1.3) mg/dL Est Cr Clr Drug Dosing 34.11 mL/min Estimated GFR (MDRD) 28 L (>60) Glucose 106 (74-106) mg/dL Calcium 8.7 (8.5-10.1) mg/dL Total Bilirubin 1.6 H (0.2-1.0) mg/dL AST 55 H (15-37) U/L ALT 73 (12-78) U/L Alkaline Phosphatase 137 H (46-116) U/L Total Protein 6.4 (6.4-8.2) g/dL Albumin 3.1 L (3.4-5.0) g/dL Globulin 3.3 (2.3-3.5) g/dL Albumin/Globulin Ratio 0.9 L (1.2-2.2) Med Orders - Current: Current Medications Acetaminophen (Tylenol) 650 mg PO Q4H PRN PRN Reason: Pain (Mild 1-3)/fever Hydrocodone Bitart/Acetaminophen ([place] 325-5 Mg) 2 tab PO Q4H PRN PRN Reason: Pain (moderate 4-6) Albuterol/Ipratropium (Duoneb 3.0-0.5 Mg/3 Ml) 3 ml NEB QID PRN PRN Reason: Shortness Of Breath/wheezing Amiodarone HCl (Cordarone) 200 mg PO BEDTIME [facility] Last Admin: 12/19/19 20:50 Dose: 200 mg Atorvastatin Calcium (Lipitor) 20 mg PO BEDTIME [facility] Last Admin: 12/19/19 20:50 Dose: 20 mg Bumetanide (Bumex) 2 mg IVPUSH Q12H [facility] Last Admin: 12/20/19 05:52 Dose: 2 mg Citalopram Hydrobromide (Celexa) 10 mg PO BEDTIME [facility] Last Admin: 12/19/19 20:50 Dose: 10 mg Promethazine HCl 12.5 mg/ (Sodium Chloride) 50.5 mls @ 200 mls/hr IV Q6H PRN PRN Reason: Nausea/Vomiting Lorazepam (Ativan) 0.5 mg PO BEDTIME PRN PRN Reason: Anxiety Last Admin: 12/19/19 22:04 Dose: 0.5 mg Metoprolol Succinate (Toprol Xl) 50 mg PO BID [facility] Last Admin: 12/20/19 09:16 Dose: 50 mg Nicotine (Habitrol) 21 mg TRDERM DAILY [facility] Last Admin: 12/20/19 09:22 Dose: 21 mg Ondansetron HCl (Zofran Odt) 4 mg PO Q6H PRN PRN Reason: Nausea able to take PO Discontinued Medications Amiodarone HCl (Cordarone) 200 mg PO ONETIME ONE Stop: 12/18/19 23:17 Last Admin: 12/18/19 23:59 Dose: 200 mg Bumetanide (Bumex) 2 mg IVPUSH Q12H [facility] Last Admin: 12/19/19 04:48 Dose: 2 mg Albumin Human (Albumin 25%) 25 gm in 100 mls @ 25 mls/hr IV ONETIME ONE Stop: 12/19/19 03:17 Last Admin: 12/18/19 23:57 Dose: 25 mls/hr Phytonadione 1 mg/ Sodium (Chloride) 50.5 mls @ 100 mls/hr IV ONETIME ONE Stop: 12/19/19 15:30 Last Admin: 12/19/19 15:31 Dose: 100 mls/hr Potassium Chloride (Potassium Chloride) 40 meq PO ONETIME ONE Stop: 12/18/19 21:36 Last Admin: 12/18/19 21:54 Dose: 40 meq Spironolactone (Aldactone) 25 mg PO DAILY [facility] Last Admin: 12/19/19 00:03 Dose: Not Given Warfarin Sodium (Coumadin Sliding Scale) 1 each PO DAILY [facility] Last Admin: 12/19/19 10:19 Dose: Not Given - Exam Quality Assessment: Supplemental Oxygen, DVT Prophylaxis General: Alert, Oriented, Cooperative, Mild Distress Lungs: Normal Respiratory Effort, Decreased Breath Sounds (Left base). No: Rales, Rhonchi, Rub, Wheezing Cardiovascular: Regular Rate, Regular Rhythm, No Murmurs GI/Abdominal Exam: Soft, Non-Tender, No Organomegaly, No Distention Extremities: Non-Tender, No Pedal Edema Sepsis Event Note - Evaluation Sepsis Screening Result: No Definite Risk - Focused Exam Vital Signs: Vital Signs Temp Pulse Pulse Resp BP BP Pulse Ox 12/20/19 11:23 97.1 F 68 16 95/55 L 100 12/20/19 09:16 60 103/76 12/20/19 09:13 96.9 F 60 18 103/76 98 12/20/19 09:03 60 18 98/48 L 96 12/20/19 08:55 61 16 110/75 94 L 12/20/19 07:32 96.2 F L 60 16 117/70 98 12/20/19 07:03 98 12/20/19 02:34 96.8 F L 60 18 110/65 97 12/20/19 00:46 94 L Date Exam was Performed: 12/20/19 Time Exam was Performed: 11:34 - Problem List Review Problem List Initiated/Reviewed/Updated: Yes - My Orders Last 24 Hours: My Active Orders 12/19/19 14:13 Consult to Physician [CONS] Routine 12/19/19 14:14 Notify Provider Consults [RC] ASDIRECTED 12/19/19 18:00 Bumetanide [Bumex] 2 mg IVPUSH Q12H 12/19/19 21:00 Amiodarone [Cordarone] 200 mg PO BEDTIME Citalopram [Celexa] 10 mg PO BEDTIME Metoprolol Succinate [Toprol XL] 50 mg PO BID 12/20/19 07:00 US Guidance Thoracentesis NC [US] Urgent 12/20/19 11:45 Warfarin [Coumadin] 2.5 mg PO DAILY 12/21/19 05:00 BASIC METABOLIC PANEL,BMP [CHEM] Timed INR,PT,PROTHROMBIN TIME [COAG] Timed - Plan Plan:: ASSESSMENT AND PLAN Acute combined systolic and diastolic congestive heart failure-underlying severe mitral regurgitation. Provement in shortness of breath with diuresis and thoracentesis -Strict intake and output monitoring -Bumex 2 mg IV every 12 hours -Continue beta-shilo Large left pleural effusion-status post thoracentesis earlier this morning -Surgical follow-up per Dr. Santana Kidney disease stage IV-years that current creatinine is his new baseline, significantly worse from previous labs. -Diuresis as above -Repeat labs in the morning Chronic atrial fibrillation -Resume warfarin -INR in the morning -Continue rate control Maintenance issues - - DVT prophylaxis -mechanical - GI prophylaxis -not indicated - Nutrition -low-sodium Disposition -I would anticipate discharge home after the hospital stay Primary care physician -Candy ANNA
[2019-12-20] MEDS ORDERED: Warfarin 2.5 MG Tab PO SCH (13:00)
[2019-12-20] MEDS: Citalopram 10 MG Tab PO SCH (20:51)
[2019-12-20] MEDS: atorvaSTATin 20 MG Tab PO SCH (20:51)
[2019-12-20] MEDS: Amiodarone 200 MG Tab PO SCH (20:51)
[2019-12-20] MEDS: LORazepam 0.5 MG Tab PO PRN (22:53)
[2019-12-21] MEDS: Bumetanide 2.5 MG/10 ML MDV IVPUSH SCH (05:54)
[2019-12-21 07:41] VITALS: BP 114/65; PULSE 60
--- NOTE | 2019-12-21 08:28 | PN ---
DATE OF SERVICE: 12/21/2019 SUBJECTIVE: Luis had his thoracentesis yesterday with 2600 fluids removed. He states he is feeling better, less short of breath. Denies any pain. REVIEW OF SYSTEMS: Remainder of review of systems negative for any pertinent positives and negatives. OBJECTIVE: GENERAL: Luis Garcia is a pleasant 74-year-old male. Alert, orientated. Color pale. VITAL SIGNS: TPR at 07:39, 97; 60; 20; blood pressure is 114/65, O2 sats by pulse oximetry is 98% on 0.5 L of O2 per nasal cannula. HEENT: Negative. NECK: Supple. HEART: Regular rate and rhythm. LUNGS: Clear. ABDOMEN: Soft, nontender. EXTREMITIES: Without peripheral edema. SKIN: Dressing from the thoracentesis was removed. ASSESSMENT: 1. Status post thoracentesis, 2600 fluid removed. 2. Recurrent short of breath. 3. Acute on chronic diastolic and systolic congestive heart failure with recurrent left pleural effusion. PLAN: 1. Discontinue dressing. 2. We will continue to evaluate. 3. We will follow up nica Whitlock PA-C /[id number]
[2019-12-21] MEDS: Metoprolol Succinate 50 MG Tab.ER PO SCH (09:00)
[2019-12-21] MEDS: Nicotine 21 MG/24 Hr Patch TRDERM SCH (09:00)
[2019-12-21] MEDS ORDERED: Potassium Chloride 20 MEQ Tab.ER PO ONE (09:00)
--- NOTE | 2019-12-21 09:37 | PCM.DCSUM1 ---
Discharge Summary - Hospital Course Brief History: Mr. aGrcia is a 74-year-old gentleman who was admitted through the emergency department with increased shortness of breath and peripheral edema secondary to acute systolic congestive heart failure exacerbation. - Discharge Data Discharge Date: 12/21/19 Discharge Disposition: Home, Self-Care 01 Condition: Stable - Referral to Home Health Primary Care Physician: PCP None - Discharge Diagnosis/Problem(s) (1) CKD (chronic kidney disease) stage 3, GFR 30-59 ml/min SNOMED Code(s): 806385321 ICD Code: N18.3 - CHRONIC KIDNEY DISEASE, STAGE 3 (MODERATE) Status: Acute Current Visit: Yes (2) Hypokalemia SNOMED Code(s): 09763710 ICD Code: E87.6 - HYPOKALEMIA Status: Acute Current Visit: Yes Problem Details: Patient given K+ in ED will recheck in AM after diuresis before giving additional doses of KCL (3) Pleural effusion, left SNOMED Code(s): 33608665 ICD Code: J90 - PLEURAL EFFUSION, NOT ELSEWHERE CLASSIFIED Status: Acute Current Visit: No (4) Acute combined systolic and diastolic CHF, NYHA class 3 SNOMED Code(s): 062644397370685, 855324013, 728067071930079 ICD Code: I50.41 - ACUTE COMBINED SYSTOLIC AND DIASTOLIC (CONGESTIVE) HRT FAIL Status: Acute Current Visit: No Problem Details: Will continue with aggressive diuresis to help with pedal edema and pleural effusion (5) Type 2 diabetes mellitus SNOMED Code(s): 81555563 ICD Code: E11.9 - TYPE 2 DIABETES MELLITUS WITHOUT COMPLICATIONS Status: Chronic Current Visit: No Problem Details: Patient uses diet and exercise to control disease, does require/request some help with foot care if possible while inpatient Qualifiers: Diabetes mellitus intermediate accountant insulin use: without snf use Diabetes mellitus complication status: without complication Qualified Code(s): E11.9 - Type 2 diabetes mellitus without complications - Patient Summary/Data Consults: Consultations 12/19/19 14:13 Consult to Physician [CONS] Routine Consulting Provider: Willi Santana Call Completed to Consulting Physician: Yes Reason for Consult: Left pleural effusion, thoracentesis in a.m. Hospital Course: Mr. Garcia is a 74-year-old gentleman who was admitted through the emergency department with recurrent shortness of breath, secondary to acute on chronic diastolic and systolic congestive heart failure with recurrent left pleural effusion. He also has known underlying chronic kidney disease stage IV. He was hospitalized at this facility last week and did undergo thoracentesis and diuresis, he felt well with significant improvement in shortness of breath at the time of discharge. After a few days at home he began to note recurrent symptoms of increased shortness of breath with minimal activity as well as orthopnea. He has not had a significant increase in his peripheral edema from discharge. X-ray shows evidence of recurrent left pleural effusion as well as pulmonary edema. Echocardiogram obtained during his last admission shows severely decreased left ventricular function with estimated ejection fraction of 25 to 30%, biatrial enlargement, right heart failure, elevated right-sided pressures, and severe mitral regurgitation. On admission he was started on Bumex 2 mg IV every 12 hours and over the course of his hospitalization had good diuresis with resolution of his peripheral edema and significant improvement in shortness of breath. He was seen and evaluated by Dr. Santana again and did undergo repeat thoracentesis because of his recurrent left pleural effusion. With these interventions he felt significantly improved and will be discharged home. On discharge he will receive a larger dose of oral Bumex 2 mg twice daily. He will also be placed on potassium chloride 20 mEq twice daily. His INR was reversed because of thoracentesis and he will be placed back on warfarin 2.5 mg daily. Follow-up laboratory studies should be obtained in 2 days to monitor potassium level, kidney function, and INR level, with a BMP and INR. Follow-up appointment has already been scheduled with his primary care provider for tomorrow , December 21. Follow-up appointment will also be scheduled with his air defense specialist Dr. Sagastume within the next week. - Patient Instructions Diet: Low Sodium, Diabetic Diet Activity: As Tolerated Other/Special Instructions: Please schedule appointment with his air defense specialist as soon as possible. Please schedule follow-up appointment with primary care provider within the next few days. BMP and INR should be obtained in 2 days December 22. - Discharge Plan *PRESCRIPTION DRUG MONITORING PROGRAM REVIEWED*: Not Applicable *COPY OF PRESCRIPTION DRUG MONITORING REPORT IN PATIENT FRANCISCO: Not Applicable Prescriptions/Med Rec: Bumetanide [Bumex] 2 mg PO BID #60 tab Potassium Chloride 20 meq PO BID #60 tablet.er Home Medications: Home Meds Multivitamin [Multivitamins] 1 tab PO DAILY 05/26/16 [History] Citalopram Hydrobromide [Celexa] 10 mg PO BEDTIME 06/29/18 [History] Metoprolol Succinate 50 mg PO BID 06/29/18 [History] Amiodarone [Cordarone] 200 mg PO BEDTIME 12/11/19 [History] atorvaSTATin Calcium [Atorvastatin Calcium] 20 mg PO BEDTIME 12/11/19 [History] Cholecalciferol (Vitamin D3) [Vitamin D3] 1,000 unit PO DAILY 12/13/19 [History] Bumetanide [Bumex] 2 mg PO BID #60 tab 12/21/19 [Rx] Potassium Chloride 20 meq PO BID #60 tablet.er 12/21/19 [Rx] Warfarin [Coumadin] 2.5 mg PO DAILY@1300 tablet 12/21/19 [Rx] Referrals: Candy Patel PA [Ordering Only Provider] - - Discharge Summary/Plan Comment DC Time >30 min.: No - Patient Data Vitals - Most Recent: Last Vital Signs Temp 97.0 F 12/21/19 07:39 Pulse 60 12/21/19 09:00 Resp 20 12/21/19 07:39 BP 114/65 12/21/19 09:00 Pulse Ox 98 12/21/19 07:39 Weight - Most Recent: 187 lb 3.2 oz I&O - Last 24 hours: Intake & Output 12/20/19 12/21/19 12/21/19 22:59 06:59 14:59 Intake Total 840 700 Output Total 1500 350 600 Balance -660 350 -600 Lab Results - Last 24 hrs: Laboratory Results - last 24 hr 12/21/19 12/21/19 Range/Units 04:13 04:13 PT 17.2 H (9.5-12.0) sec INR 1.64 H (0.80-1.20) Sodium 144 (140-148) mmol/L Potassium 3.5 L (3.6-5.2) mmol/L Chloride 104 (100-108) mmol/L Carbon Dioxide 35 H (21-32) mmol/L Anion Gap 8.5 (5.0-14.0) mmol/L BUN 48 H (7-18) mg/dL Creatinine 2.3 H (0.8-1.3) mg/dL Est Cr Clr Drug Dosing 32.82 mL/min Estimated GFR (MDRD) 28 L (>60) Glucose 85 (74-106) mg/dL Calcium 8.2 L (8.5-10.1) mg/dL Med Orders - Current: Current Medications Acetaminophen (Tylenol) 650 mg PO Q4H PRN PRN Reason: Pain (Mild 1-3)/fever Hydrocodone Bitart/Acetaminophen ([place] 325-5 Mg) 2 tab PO Q4H PRN PRN Reason: Pain (moderate 4-6) Albuterol/Ipratropium (Duoneb 3.0-0.5 Mg/3 Ml) 3 ml NEB QID PRN PRN Reason: Shortness Of Breath/wheezing Amiodarone HCl (Cordarone) 200 mg PO BEDTIME [facility] Last Admin: 12/20/19 20:51 Dose: 200 mg Atorvastatin Calcium (Lipitor) 20 mg PO BEDTIME [facility] Last Admin: 12/20/19 20:51 Dose: 20 mg Bumetanide (Bumex) 2 mg IVPUSH Q12H [facility] Last Admin: 12/21/19 05:54 Dose: 2 mg Citalopram Hydrobromide (Celexa) 10 mg PO BEDTIME [facility] Last Admin: 12/20/19 20:51 Dose: 10 mg Promethazine HCl 12.5 mg/ (Sodium Chloride) 50.5 mls @ 200 mls/hr IV Q6H PRN PRN Reason: Nausea/Vomiting Lorazepam (Ativan) 0.5 mg PO BEDTIME PRN PRN Reason: Anxiety Last Admin: 12/20/19 22:53 Dose: 0.5 mg Metoprolol Succinate (Toprol Xl) 50 mg PO BID [facility] Last Admin: 12/21/19 09:00 Dose: 50 mg Nicotine (Habitrol) 21 mg TRDERM DAILY [facility] Last Admin: 12/21/19 09:00 Dose: 21 mg Ondansetron HCl (Zofran Odt) 4 mg PO Q6H PRN PRN Reason: Nausea able to take PO Warfarin Sodium (Coumadin) 2.5 mg PO DAILY@1300 [facility] Last Admin: 12/20/19 13:38 Dose: 2.5 mg Discontinued Medications Amiodarone HCl (Cordarone) 200 mg PO ONETIME ONE Stop: 12/18/19 23:17 Last Admin: 12/18/19 23:59 Dose: 200 mg Bumetanide (Bumex) 2 mg IVPUSH Q12H [facility] Last Admin: 12/19/19 04:48 Dose: 2 mg Albumin Human (Albumin 25%) 25 gm in 100 mls @ 25 mls/hr IV ONETIME ONE Stop: 12/19/19 03:17 Last Admin: 12/18/19 23:57 Dose: 25 mls/hr Phytonadione 1 mg/ Sodium (Chloride) 50.5 mls @ 100 mls/hr IV ONETIME ONE Stop: 12/19/19 15:30 Last Admin: 12/19/19 15:31 Dose: 100 mls/hr Potassium Chloride (Potassium Chloride) 40 meq PO ONETIME ONE Stop: 12/18/19 21:36 Last Admin: 12/18/19 21:54 Dose: 40 meq Potassium Chloride (Klor-Con M20) 40 meq PO ONETIME ONE Stop: 12/21/19 09:01 Spironolactone (Aldactone) 25 mg PO DAILY [facility] Last Admin: 12/19/19 00:03 Dose: Not Given Warfarin Sodium (Coumadin Sliding Scale) 1 each PO DAILY [facility] Last Admin: 12/19/19 10:19 Dose: Not Given - Exam General: Reports: Alert, Oriented, Cooperative, No Acute Distress Lungs: Reports: Clear to Auscultation, Normal Respiratory Effort Cardiovascular: Reports: Regular Rate, Regular Rhythm, No Murmurs GI/Abdominal Exam: Soft, Non-Tender, No Organomegaly, No Distention Extremities: Non-Tender, No Pedal Edema
--- NOTE | 2019-12-21 09:37 | PROC ---
DATE OF PROCEDURE: 12/20/2019 SURGEON: Willi Santana MD PREOPERATIVE DIAGNOSIS: Recurrent left pleural effusion. POSTOPERATIVE DIAGNOSIS: Recurrent left pleural effusion. OPERATIVE PROCEDURE: Ultrasound-guided left thoracentesis (83095). ANESTHESIA: Local. INDICATIONS FOR PROCEDURE: This is a 74-year-old male, presenting with recurrent large left pleural effusion and some degree of shortness of breath. Apparently, he is scheduled to be seen by Cardiology regarding a valve replacement, which at this point appears to probably be necessary given the rapid recurrence of the pleural effusion, most likely related to underlying congestive heart failure. The plan is to proceed with a left thoracentesis. Potential risks including bleeding, infection, injury to the lung were reviewed, and the patient wishes to proceed. DETAILS OF PROCEDURE: The patient was sitting in his hospital bed, and with ultrasound, the left posterolateral chest wall was marked per adequate spot for the thoracentesis. That area was prepped and draped, anesthetized with 1% lidocaine and the thoracentesis catheter placed. 2600 mL of clear serous fluid was removed. This was identical fluid in appearance to last week, and therefore labs were not run on this fluid. As much fluid was removed as possible and the catheter was then removed. Dressing applied. Chest x-ray showed near complete evacuation of effusion, and otherwise no complications. Willi Santana MD /[id number]
--- NOTE | 2019-12-21 10:46 | CR ---
CHEST: 2 view CLINICAL HISTORY:Left thoracentesis COMPARISON:12/20/2019 FINDINGS: Heart is enlarged. Pulmonary vascular is mildly cephalized. Patient is permanent cardiac pacer/defibrillator. There are atherosclerotic changes in the aorta. There is a minimal left effusion similar to prior day. The there is some airspace disease in both lower lobes. This could represent some minimal pulmonary edema. Impression: Minimal left pleural effusion Mild vascular cephalization and bilateral pulmonary infiltrates are suggestive of mild the pulmonary edema from CHF. Clinical correlation necessary.
== END 2019-12-21 11:45 | disposition home or self-care (01) | DRG 186 ==
LOC: JP.ED 20:12 → JP.MS 23:04
PROVIDERS: ADMIT Family Medicine; ATTEND Family Medicine
PROC: 0W9B3ZZ Drainage of Left Pleural Cavity, Percutaneous Approach (ICD-10-PCS; principal; 2019-12-20)
DX: J90 Pleural effusion, not elsewhere classified (principal); I50.43 Acute on chronic combined systolic (congestive) and diastolic (congestive) heart failure; I13.0 Hypertensive heart and chronic kidney disease with heart failure and stage 1 through stage 4 chronic kidney disease, or unspecified chronic kidney disease; N17.9 Acute kidney failure, unspecified; N18.9 Chronic kidney disease, unspecified; I50.9 Heart failure, unspecified; J98.4 Other disorders of lung; N18.4 Chronic kidney disease, stage 4 (severe); I48.20 Chronic atrial fibrillation, unspecified; Z86.74 Personal history of sudden cardiac arrest; Z95.810 Presence of automatic (implantable) cardiac defibrillator; Z95.5 Presence of coronary angioplasty implant and graft; E87.6 Hypokalemia; Z88.8 Allergy status to other drugs, medicaments and biological substances; I25.10 Atherosclerotic heart disease of native coronary artery without angina pectoris; E78.00 Pure hypercholesterolemia, unspecified; E11.22 Type 2 diabetes mellitus with diabetic chronic kidney disease; M19.90 Unspecified osteoarthritis, unspecified site; F17.200 Nicotine dependence, unspecified, uncomplicated; J43.9 Emphysema, unspecified; I34.0 Nonrheumatic mitral (valve) insufficiency; Z79.01 Long term (current) use of anticoagulants; Z79.899 Other long term (current) drug therapy; I25.2 Old myocardial infarction; Z95.0 Presence of cardiac pacemaker
CPT/HCPCS: 36415; 71045 ×2; 80053; 85027; 99284; 99285; A9270; 71046; 71046-26; 80048; 83036; 85025; 85610; 94762; J3430; J3490; J7050; P9047

== ENCOUNTER 2020-01-11 03:42 | Emergency (ER) | payer MEDICARE, OTHER ==
--- NOTE | 2020-01-11 04:02 | EDM.PDOC ---
ED HPI GENERAL MEDICAL PROBLEM - General Chief Complaint: ENT Problem Stated Complaint: BLEEDING FROM MOUTH Time Seen by Provider: 01/11/20 03:50 Source of Information: Reports: Patient, Family, Old Records History Limitations: Reports: No Limitations - History of Present Illness INITIAL COMMENTS - FREE TEXT/NARRATIVE: 74 yo male on warfarin had some upper incisors removed(4) recently by an oral surgeon at [facility] prophylactically before having a heart valve placed to prevent infection of the valve as the teeth were bad. He recently quit smoking and is wearing a nicotine patch. Does not have a dentist. After leaving the hospital and on his way home he experienced bleeding from his mouth and stopped at [facility] wear they got the bleeding under control for him. Tonight since the bleeding started all he has done is hold gauze over the bleeding area. His last INR was about a week ago. Here now from [place] with his daughter. Onset: Today Onset Date: 01/11/20 Onset Time: 02:30 Duration: Hour(s): (1.5) Location: Reports: Face (anterior/central maxilla) Quality: Reports: Dull Severity: Mild Improves with: Reports: None Worsens with: Reports: None Context: Reports: Other (See HPI) Associated Symptoms: Reports: No Other Symptoms Treatments PREFINISH OPERATOR: Reports: Other (see below) (See HPI) Oral/Mouth Pain Score (Numeric/FACES): 7 - Related Data Allergies Allergy/AdvReac Type Severity Reaction Status Date / Time lisinopril AdvReac Cough Verified 01/11/20 03:50 Home Meds: Home Meds Multivitamin [Multivitamins] 1 tab PO DAILY 05/26/16 [History] Citalopram Hydrobromide [Celexa] 10 mg PO BEDTIME 06/29/18 [History] Metoprolol Succinate 50 mg PO BID 06/29/18 [History] Amiodarone [Cordarone] 200 mg PO BEDTIME 12/11/19 [History] atorvaSTATin Calcium [Atorvastatin Calcium] 20 mg PO BEDTIME 12/11/19 [History] Cholecalciferol (Vitamin D3) [Vitamin D3] 1,000 unit PO DAILY 12/13/19 [History] Bumetanide [Bumex] 2 mg PO BID #60 tab 12/21/19 [Rx] Potassium Chloride 20 meq PO BID #60 tablet.er 12/21/19 [Rx] Warfarin [Coumadin] 2.5 mg PO DAILY@1300 tablet 12/21/19 [Rx] Past Medical History Cardiovascular History: Reports: Afib, CAD, Heart Failure, High Cholesterol, Hypertension, [place], Pacemaker, Prior Cardiac Arrest Gastrointestinal History: Reports: Cirrhosis Genitourinary History: Reports: Chronic Renal Insuffiency, Renal Disease Musculoskeletal History: Reports: Arthritis, Fracture Neurological History: Reports: Head Trauma Other Neuro History: Loss conciousness from skiing Psychiatric History: Reports: Addiction Other Endocrine/Metabolic History: borderline diabetes - Infectious Disease History Infectious Disease History: Reports: Chicken Pox, Measles, Mumps - Past Surgical History HEENT Surgical History: Reports: Tonsillectomy Cardiovascular Surgical History: Reports: AICD, Coronary Artery Stent, Pacer Respiratory Surgical History: Reports: Thoracentesis GI Surgical History: Reports: Hernia, Inguinal Social & Family History - Family History Family Medical History: Noncontributory Cardiac: Reports: CAD - Tobacco Use Smoking Status *Q: Former Smoker Used Tobacco, but Quit: Yes Month/Year Tobacco Last Used: 0 - Caffeine Use Caffeine Use: Reports: Coffee Other Caffeine Use: 8 cups per day - Recreational Drug Use Recreational Drug Use: No ED ROS ENT - Review of Systems Review Of Systems: See Below Constitutional: Reports: No Symptoms HEENT: Reports: Other (oral bleeding) Respiratory: Reports: No Symptoms Cardiovascular: Reports: No Symptoms Skin: Reports: No Symptoms Neurological: Reports: No Symptoms ED EXAM, ENT - Physical Exam Exam: See Below Exam Limited By: No Limitations General Appearance: Alert, WD/WN, No Apparent Distress Eye Exam: Bilateral Eye: Normal Inspection Ears: Normal External Exam, Normal Canal, Hearing Grossly Normal Nose: Normal Inspection, No Blood Mouth/Throat: Bleeding (from the 4 maxillary incisors that were pulled about a week ago. ) Head: Atraumatic, Normocephalic Course - Vital Signs Text/Narrative:: Bit down on black tea bags and was able to get his bleeding under control. Last Recorded V/S: Last Vital Signs Temp 36.2 C 01/11/20 03:52 Pulse 60 01/11/20 03:52 Resp 14 01/11/20 03:52 BP 107/54 L 01/11/20 03:52 Pulse Ox 97 01/11/20 03:52 - Orders/Labs/Meds Labs: Laboratory Tests 01/11/20 01/11/20 Range/Units 04:05 04:05 WBC 9.3 (4.5-11.0) K/uL RBC 3.26 L (4.30-5.90) M/uL Hgb 9.6 L D (12.0-15.0) g/dL Hct 31.6 L (40.0-54.0) % MCV 97 (80-98) fL MCH 29 (27-31) pg MCHC 30 L (32-36) % Plt Count 298 (150-400) K/uL PT 17.8 H (9.5-12.0) sec INR 1.70 H (0.80-1.20) Departure - Departure Time of Disposition: 04:45 Disposition: Home, Self-Care 01 Condition: Fair Clinical Impression: Postoperative bleeding from mouth - Discharge Information *PRESCRIPTION DRUG MONITORING PROGRAM REVIEWED*: Not Applicable *COPY OF PRESCRIPTION DRUG MONITORING REPORT IN PATIENT FRANCISCO: Not Applicable Referrals: PCP,None [Primary Care Provider] - Forms: ED Department Discharge Additional Instructions: Bite down on wetted black tea bags as needed to control bleeding. Recheck as needed. Sepsis Event Note - Evaluation Sepsis Screening Result: No Definite Risk - Focused Exam Vital Signs: Vital Signs Temp Pulse Resp BP Pulse Ox 01/11/20 03:52 36.2 C 60 14 107/54 L 97 Date Exam was Performed: 01/11/20 Time Exam was Performed: 04:39
[2020-01-11 04:25] VITALS: BP 107/54; PULSE 60
== END 2020-01-11 05:17 | disposition home or self-care (01) ==
LOC: JP.ED 03:42
DX: K91.840 Postprocedural hemorrhage of a digestive system organ or structure following a digestive system procedure (principal); I48.91 Unspecified atrial fibrillation; E78.00 Pure hypercholesterolemia, unspecified; I25.2 Old myocardial infarction; I13.0 Hypertensive heart and chronic kidney disease with heart failure and stage 1 through stage 4 chronic kidney disease, or unspecified chronic kidney disease; I50.9 Heart failure, unspecified; N18.9 Chronic kidney disease, unspecified; Z87.891 Personal history of nicotine dependence; Z88.8 Allergy status to other drugs, medicaments and biological substances; Z79.01 Long term (current) use of anticoagulants
CPT/HCPCS: 36415; 85027; 85610; 99282; 99283

== ENCOUNTER 2021-01-18 17:54 | Emergency (ER) | payer MEDICARE ==
--- NOTE | 2021-01-18 18:41 | EDM.PDOC ---
ED HPI GENERAL MEDICAL PROBLEM - General Chief Complaint: Back Pain or Injury Stated Complaint: MOVING A MOTOR FELT SOMETHING POP Time Seen by Provider: 01/18/21 18:26 Source of Information: Reports: Patient History Limitations: Reports: No Limitations - History of Present Illness INITIAL COMMENTS - FREE TEXT/NARRATIVE: Luis is a 75-year-old male presenting to the ED for evaluation of mid and lower back pain. Patient was in his usual state of health when he decided to move a 5 hp motor for his log splitter. The motor was in a box and wrapped in plastic and he was moving it from a bench to a sled in order for him to move it across the garage. The patient lifted the box and turned to place it on the sled but approximately [address] to that location the box started to slip and the patient tried to maintain control of it eventually both of them went down to the ground. The patient is complaining of pain around the area of T10- T12 as well as L3-S1. The patient does have a history significant for compression fractures of L4 25% anterior compression wedging and L3 15% anterior compression wedging. The patient also has a history significant for significant degenerative disc disease with severe disc compression at L5-S1 and moderate to severe disc compression at L4-L5. 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 Patient is being followed by [facility] in [place] for his osteoporosis, compression fractures, and right hip problem. His recent TSH was elevated at 7.06 but they did not do a free T4. His calcium was 9.6 but they did not check an albumin. - Related Data Allergies Allergy/AdvReac Type Severity Reaction Status Date / Time lisinopril AdvReac Cough Verified 01/18/21 18:14 Home Meds: Home Meds Multivitamin [Multivitamins] 1 tab PO DAILY 05/26/16 [History] Citalopram Hydrobromide [Celexa] 10 mg PO DAILY 06/29/18 [History] Metoprolol Succinate 50 mg PO DAILY 06/29/18 [History] Amiodarone [Cordarone] 200 mg PO DAILY 12/11/19 [History] atorvaSTATin Calcium [Atorvastatin Calcium] 20 mg PO BEDTIME 12/11/19 [History] Cholecalciferol (Vitamin D3) [Vitamin D3] 1,000 unit PO DAILY 12/13/19 [History] Bumetanide [Bumex] 2 mg PO BID #60 tab 12/21/19 [Rx] Potassium Chloride 20 meq PO BID #60 tablet.er 12/21/19 [Rx] Albuterol Sulfate [Albuterol Sulfate Hfa] 1 - 2 inh IH Q4H PRN 09/18/20 [History] Aspirin [Adult Low Dose Aspirin EC] 81 mg PO DAILY 09/18/20 [History] Ferrous Sulfate [Iron] 325 mg PO BID 09/18/20 [History] Isosorbide Dinitrate 10 mg PO TID 09/18/20 [History] L. Acidophilus/L.bulgaricus [Lactobacillus Tablet] 1 each PO DAILY 09/18/20 [History] Nicotine [Nicotine Patch] 1 each TD DAILY 09/18/20 [History] hydrALAZINE [Apresoline] 10 mg PO Q8H 09/18/20 [History] Budesonide/Formoterol [Symbicort 80-4.5 MCG] 2 puff IH BID 01/18/21 [History] methocarbamoL [Methocarbamol] 750 mg PO QID PRN #28 tablet 01/18/21 [Rx] Past Medical History HEENT History: Reports: Impaired Vision Cardiovascular History: Reports: Afib, CAD, Heart Failure, High Cholesterol, Hypertension, GA, Pacemaker, Prior Cardiac Arrest Respiratory History: Reports: COPD Gastrointestinal History: Reports: Cirrhosis Genitourinary History: Reports: Chronic Renal Insuffiency, Renal Disease Musculoskeletal History: Reports: Arthritis, Fracture Neurological History: Reports: Head Trauma Other Neuro History: 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 Cardiovascular Surgical History: Reports: AICD, Coronary Artery Stent, Pacer, Other (See Below) Other Cardiovascular Surgeries/Procedures: mitral valve repair with clip. Has watchman implanted Respiratory Surgical History: Reports: Thoracentesis GI Surgical History: Reports: Hernia, Inguinal Endocrine Surgical History: Reports: None Neurological Surgical History: Reports: None Musculoskeletal Surgical History: Reports: None Dermatological Surgical History: Reports: None Social & Family History - Family History Family Medical History: No Pertinent Family History Cardiac: Reports: CAD - Tobacco Use Tobacco Use Status *Q: Current Every Day Tobacco User Years of Tobacco use: 50 Packs/Tins Daily: 0.2 Used Tobacco, but Quit: No - Caffeine Use Caffeine Use: Reports: Coffee Other Caffeine Use: 8 cups per day - Recreational Drug Use Recreational Drug Use: No ED ROS GENERAL - Review of Systems Review Of Systems: See Below Constitutional: Reports: No Symptoms HEENT: Reports: No Symptoms Respiratory: Reports: No Symptoms Cardiovascular: Reports: No Symptoms Endocrine: Reports: No Symptoms GI/Abdominal: Reports: No Symptoms : Reports: No Symptoms Musculoskeletal: Reports: Back Pain (Lower thoracic and lower lumbar back pain), Muscle Pain (Right paraspinal), Muscle Stiffness (Right paraspinal) Neurological: Reports: No Symptoms ED EXAM,LOWER BACK PAIN/INJURY - Physical Exam Exam: See Below Exam Limited By: No Limitations General Appearance: Alert, Mild Distress Eye Exam: Bilateral Eye: EOMI, PERRL Head: Atraumatic, Normocephalic Neck: Normal Inspection, Supple Back Exam: Full Range of Motion, Muscle Spasm (Right side paraspinal muscle spasm), Paraspinal Tenderness (Right-sided paraspinal tenderness), Vertebral Tenderness (T10 and 11 tenderness to percussion, L4-L5 tenderness to percussion) Extremities: Normal Inspection Neurological: Alert, Normal Mood/Affect, Normal Dorsiflexion, Normal Plantar Flexion, Normal Gait, No Motor/Sensory Deficits, Oriented x 3. No: Straight Leg Raise (L), Straight Leg Raise (R) Skin Exam: Warm, Dry, Intact Course - Vital Signs Last Recorded V/S: Last Vital Signs Temp 36.0 C L 01/18/21 18:17 Pulse 63 01/18/21 18:17 Resp 16 01/18/21 18:17 BP 132/70 01/18/21 18:17 Pulse Ox 95 01/18/21 18:17 - Orders/Labs/Meds Labs: Laboratory Tests 01/18/21 Range/Units 18:58 Sodium 143 (140-148) mmol/L Potassium 4.1 (3.6-5.2) mmol/L Chloride 102 (100-108) mmol/L Carbon Dioxide 29 (21-32) mmol/L Anion Gap 12.5 (5.0-14.0) mmol/L BUN 33 H (7-18) mg/dL Creatinine 2.7 H (0.8-1.3) mg/dL Est Cr Clr Drug Dosing 28.88 mL/min Estimated GFR (MDRD) 23 L (>60) Glucose 101 (74-106) mg/dL Calcium 8.5 (8.5-10.1) mg/dL Total Bilirubin 0.6 D (0.2-1.0) mg/dL AST 21 (15-37) U/L ALT 27 (12-78) U/L Alkaline Phosphatase 122 H (46-116) U/L Total Protein 7.2 (6.4-8.2) g/dL Albumin 3.5 (3.4-5.0) g/dL Globulin 3.7 H (2.3-3.5) g/dL Albumin/Globulin Ratio 1.0 L (1.2-2.2) Free T4 1.23 (0.76-1.46) ng/dL TSH, Ultra Sensitive 6.812 H (0.358-3.740) uIU/mL Meds: Medications Discontinued Medications Generic Name Dose Route Start Last Admin Trade Name Freq PRN Reason Stop Dose Admin Ketorolac Tromethamine 30 mg 01/18/21 19:13 01/18/21 19:23 Ketorolac 30 Mg/Ml Sdv IM 01/18/21 19:14 30 mg ONETIME ONE Administration Methocarbamol 500 mg 01/18/21 19:13 01/18/21 19:23 Methocarbamol 500 Mg Tab PO 01/18/21 19:14 500 mg ONETIME ONE Administration - Radiology Interpretation Free Text/Narrative:: I reviewed the reports on the CT of the thoracic and lumbar spine without contrast. There is mild chronic appearing compression deformity seen on the superior endplate of T1-T3, T7, T9, and T11 with no osseous central canal stenosis seen. There is a large left pleural effusion present. In the lumbar spine there is mild compression deformity seen along the superior endplate of L3 with moderate compression deformity along the superior endplate of L4 noted. These were seen on previous CT done at [facility]. There is no osseous central canal stenosis. There is severe degenerative disc disease with vacuum phenomena present at L4-L5, L5-S1, and L2-L3. There is a remote healed fracture deformity of the left L1 transverse process noted as well. Overall, there is no acute abnormalities. - Re-Assessments/Exams Free Text/Narrative Re-Assessment/Exam: 01/18/21 20:40 I reviewed the patient's comprehensive metabolic panel showing a calcium of 8.5 that corrects to 9.6 based on his albumin. His TSH is elevated but he has a normal free T4 likely sick euthyroid. CTs of the thoracic and lumbar spine show no acute abnormalities with the exception of a new vacuum sign seen at L2-L3 which was likely the pop that he felt and heard. There is no acute vertebral fractures. We will treat the patient with methocarbamol 750 mg 4 times daily for the myofascial strain of the thoracic and lumbar spine. In addition we will put him on Toradol for pain control 10 mg 4 times daily as needed. I did instruct him to ice the back. He should follow-up with his primary care provider concerning physical therapy if not improving the next 5 to 7 days. Patient is in agreement with this plan and is suitable for discharge in satisfactory condition. Departure - Departure Time of Disposition: 20:24 Disposition: Home, Self-Care 01 Clinical Impression: Acute thoracic myofascial strain Qualifiers: Encounter type: initial encounter Qualified Code(s): S29.019A - Strain of muscle and tendon of unspecified wall of thorax, initial encounter Acute lumbar myofascial strain Qualifiers: Encounter type: initial encounter Qualified Code(s): S39.012A - Strain of muscle, fascia and tendon of lower back, initial encounter - Discharge Information Prescriptions: methocarbamoL [Methocarbamol] 750 mg PO QID PRN #28 tablet PRN Reason: Muscle Spasm Instructions: Thoracic Strain, [id number], Lumbosacral Strain Referrals: PCP,None [Primary Care Provider] - Forms: ED Department Discharge Care Plan Goals: It appears that the majority of your pain is arising from straining the muscles in your low thoracic spine and low back. We are putting you on pain medicine called Toradol that he may take up to four times a day as needed for pain. I would not exceed 5 tablets a day or 5 days in a row. I'm also putting you on methocarbamol which is a potent muscle relaxant to help relax the spasming muscles. Again you may take this up to four times a day. The Toradol is available in the [facility] machine in the lobby so that you may start that tonight. The methocarbamol you will need to garbage pick up man at your pharmacy tomorrow. I have included a printed prescription for this. You may want to ice the back to help reduce the muscle spasm. I would ice the area for 15 to 20 minutes every couple hours you're awake. If not improving in the course of the next 5 to 6 days, follow-up with your primary care provider as physical therapy may be beneficial as well. No lifting more than 10 pounds. No prolonged standing or bending. Sepsis Event Note (ED) - Evaluation Sepsis Screening Result: No Definite Risk - Focused Exam Vital Signs: Vital Signs Temp Pulse Resp BP Pulse Ox 01/18/21 18:17 36.0 C L 63 16 132/70 95 01/18/21 18:13 36.0 C L 63 16 132/70 95 - Problem List & Annotations (1) Acute lumbar myofascial strain SNOMED Code(s): 046377114, 97512262, 161718942 Code(s): S39.012A - STRAIN OF MUSCLE, FASCIA AND TENDON OF LOWER BACK, INIT Status: Acute Priority: Medium Current Visit: Yes Qualifiers: Encounter type: initial encounter Qualified Code(s): S39.012A - Strain of muscle, fascia and tendon of lower back, initial encounter (2) Acute thoracic myofascial strain SNOMED Code(s): 04023778, 77546457 Code(s): S29.019A - STRAIN OF MUSCLE AND TENDON OF UNSP WALL OF THORAX, INIT Status: Acute Priority: Medium Current Visit: Yes Qualifiers: Encounter type: initial encounter Qualified Code(s): S29.019A - Strain of muscle and tendon of unspecified wall of thorax, initial encounter - Problem List Review Problem List Initiated/Reviewed/Updated: Yes
[2021-01-18] MEDS ORDERED: Ketorolac 30 MG/ML SDV IM ONE (19:13)
[2021-01-18] MEDS ORDERED: Methocarbamol 500 MG Tab PO ONE (19:13)
[2021-01-18] MEDS ORDERED: Methocarbamol 500 MG Tab ONE (19:19)
[2021-01-18] MEDS ORDERED: Ketorolac 30 MG/ML SDV ONE (19:19)
--- NOTE | 2021-01-18 20:12 | CRLCT ---
INDICATION: Acute back pain. TECHNIQUE: Noncontrast CT images were acquired through the thoracic spine. COMPARISON: None. FINDINGS: Mild age-indeterminate compression fractures of the T5 and T11 superior endplates without retropulsion. Chronic appearing mild anterior wedging of the T7 vertebral body. Age-indeterminate Schmorl`s node deformities involving the T9 and T12 superior endplates. The thoracic kyphosis preserved. Trace anterolisthesis of T1 on T2. Multilevel facet arthropathy in the upper thoracic spine, moderately density 1 2. No spinal canal or neural foraminal stenosis. Moderate left pleural effusion. IMPRESSION: 1. Mild age-indeterminate compression fractures of the T5 and T11 superior endplates without retropulsion. 2. Chronic appearing mild anterior wedging of the T7 vertebral body. Age-indeterminate Schmorl`s node deformities involving the T9 and T12 superior endplates. 3. No spinal canal or neural foraminal stenosis. 4. Multilevel facet arthropathy, moderately advanced at T1-2. 5. Moderate left pleural effusion. Please note that all CT scans at this facility use dose modulation, iterative reconstruction, and/or weight-based dosing when appropriate to reduce radiation dose to as low as reasonably achievable. Dictated by Raheel Acosta MD @ 01/19/2021 9:01:[address] Raheel Acosta @ Jan 19 2021 9:01AM
--- NOTE | 2021-01-18 20:18 | CRLCT ---
INDICATION: Acute back pain. History of compression fracture. TECHNIQUE: Noncontrast CT images were acquired through the lumbar spine. COMPARISON: None. FINDINGS: Mild L3 and [id number] L4 superior endplate compression fractures are age-indeterminate. No associated retropulsion. The lumbar lordosis is maintained. Mild leftward lumbar curvature. Healed chronic fracture deformity of the left L1 transverse process. L1-2: No spinal canal or neural foraminal narrowing. L2-3: Mild retrolisthesis. Advanced disc degeneration. Shallow posterior disc bulge. Minimal spinal canal narrowing. No neural foraminal narrowing. L3-4: Left eccentric disc bulge. No spinal canal narrowing. Minimal left without right neural foraminal narrowing. L4-5: Trace retrolisthesis. Advanced right eccentric disc height loss. Posterior disc bulging. [id number] bilateral facet arthropathy. No spinal canal or neural foraminal narrowing. L5-S1: Advanced disc degeneration and disc height loss. Posterior disc bulging and endplate spondylitic ridging. Mild bilateral facet arthropathy. No spinal canal narrowing. Mild bilateral neural foraminal narrowing. Sacroiliac joint degenerative changes. Atherosclerotic calcifications. IMPRESSION: 1. Mild L3 and [id number]-iglhnowt L4 superior endplate compression fractures are age-indeterminate. No associated retropulsion. 2. Multilevel lumbar spondylosis without spinal canal stenosis. Please note that all CT scans at this facility use dose modulation, iterative reconstruction, and/or weight-based dosing when appropriate to reduce radiation dose to as low as reasonably achievable. Dictated by Raheel Acosta MD @ 01/19/2021 9:43:[address] Raheel Acosta @ Jan 19 2021 9:43AM
[2021-01-18 20:25] VITALS: BP 136/79; PULSE 65
== END 2021-01-18 20:43 | disposition home or self-care (01) ==
LOC: JP.ED 17:54
DX: S39.012A Strain of muscle, fascia and tendon of lower back, initial encounter (principal); S29.019A Strain of muscle and tendon of unspecified wall of thorax, initial encounter; I48.91 Unspecified atrial fibrillation; I25.10 Atherosclerotic heart disease of native coronary artery without angina pectoris; I50.9 Heart failure, unspecified; E78.00 Pure hypercholesterolemia, unspecified; J44.9 Chronic obstructive pulmonary disease, unspecified; M19.90 Unspecified osteoarthritis, unspecified site; I13.0 Hypertensive heart and chronic kidney disease with heart failure and stage 1 through stage 4 chronic kidney disease, or unspecified chronic kidney disease; N18.9 Chronic kidney disease, unspecified; Z88.8 Allergy status to other drugs, medicaments and biological substances; Z79.82 Long term (current) use of aspirin; Z79.899 Other long term (current) drug therapy; Z72.0 Tobacco use; X50.9XXA Other and unspecified overexertion or strenuous movements or postures, initial encounter
CPT/HCPCS: 36415; 72128; 72131; 80053; 84439; 84443; 96372; 99283; 99284; A9270; J1885

== ENCOUNTER 2021-04-19 18:54 | Emergency (ER) | payer MEDICARE ==
[2021-04-19] MEDS ORDERED: Sodium Chloride 0.9% 10 ML Syringe FLUSH PRN (18:59)
[2021-04-19] MEDS ORDERED: Diltiazem 25 MG/5 ML SDV IVPUSH ONE (19:00)
[2021-04-19] MEDS ORDERED: Rocuronium 50 MG/5 ML Vial ONE ×2 (19:17→19:19)
[2021-04-19] MEDS ORDERED: propofoL 100 ML ONE (19:24)
[2021-04-19] MEDS ORDERED: Diltiazem 100 MG AdvVial ONE (19:32)
[2021-04-19] MEDS ORDERED: Sodium Chloride 0.9% 100 ML ONE (19:33)
--- NOTE | 2021-04-19 19:57 | EDM.PDOC ---
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 The [facility] and a atrial fibrillation with a wide complex rapid ventricular rate between 170 and 200 bpm. The patient initially presented with a blood pressure of 62/48 but was barely mentating and able to mumble some words. His blood pressure continued to decline due to the rapid rate. An IV was established. The patient started drooling bloody saliva and was not handling his secretions well. His SPO2 was noted to be about 88% and dropping. Because of the tenuous blood pressure, tachycardia, and worry about patient being able to maintain his airway, rapid response was called. - Related Data Allergies Allergy/AdvReac Type Severity Reaction Status Date / Time lisinopril AdvReac Cough Verified 01/18/21 18:14 Home Meds: Home Meds Multivitamin [Multivitamins] 1 tab PO DAILY 05/26/16 [History] Citalopram Hydrobromide [Celexa] 10 mg PO DAILY 06/29/18 [History] Metoprolol Succinate 50 mg PO DAILY 06/29/18 [History] Amiodarone [Cordarone] 200 mg PO DAILY 12/11/19 [History] atorvaSTATin Calcium [Atorvastatin Calcium] 20 mg PO BEDTIME 12/11/19 [History] Cholecalciferol (Vitamin D3) [Vitamin D3] 1,000 unit PO DAILY 12/13/19 [History] Bumetanide [Bumex] 2 mg PO BID #60 tab 12/21/19 [Rx] Potassium Chloride 20 meq PO BID #60 tablet.er 12/21/19 [Rx] Albuterol Sulfate [Albuterol Sulfate Hfa] 1 - 2 inh IH Q4H PRN 09/18/20 [History] Aspirin [Adult Low Dose Aspirin EC] 81 mg PO DAILY 09/18/20 [History] Ferrous Sulfate [Iron] 325 mg PO BID 09/18/20 [History] Isosorbide Dinitrate 10 mg PO TID 09/18/20 [History] L. Acidophilus/L.bulgaricus [Lactobacillus Tablet] 1 each PO DAILY 09/18/20 [History] Nicotine [Nicotine Patch] 1 each TD DAILY 09/18/20 [History] hydrALAZINE [Apresoline] 10 mg PO Q8H 09/18/20 [History] Budesonide/Formoterol [Symbicort 80-4.5 MCG] 2 puff IH BID 01/18/21 [History] methocarbamoL [Methocarbamol] 750 mg PO QID PRN #28 tablet 01/18/21 [Rx] Past Medical History HEENT History: Reports: Impaired Vision Cardiovascular History: Reports: Afib, CAD, Heart Failure, High Cholesterol, Hypertension, [place], Pacemaker, Prior Cardiac Arrest Respiratory History: Reports: COPD Gastrointestinal History: Reports: Cirrhosis Genitourinary History: Reports: Chronic Renal Insuffiency, Renal Disease Musculoskeletal History: Reports: Arthritis, Fracture Neurological History: Reports: Head Trauma Other Neuro History: 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 Cardiovascular Surgical History: Reports: AICD, Coronary Artery Stent, Pacer, Other (See Below) Other Cardiovascular Surgeries/Procedures: mitral valve repair with clip. Has watchman implanted Respiratory Surgical History: Reports: Thoracentesis GI Surgical History: Reports: Hernia, Inguinal Endocrine Surgical History: Reports: None Neurological Surgical History: Reports: None Musculoskeletal Surgical History: Reports: None Dermatological Surgical History: Reports: None Social & Family History - Family History Family Medical History: No Pertinent Family History Cardiac: Reports: CAD - Caffeine Use Caffeine Use: Reports: Coffee Other Caffeine Use: 8 cups per day ED ROS GENERAL - Review of Systems Review Of Systems: Unable To Obtain Reason Not Obtained: Altered mental status, patient is unable to answer any questions. ED EXAM, GENERAL - Physical Exam Exam: See Below Exam Limited By: Altered Mental Status General Appearance: Lethargic Throat/Mouth: Other (Increased secretions, some of them are bloody. Hypermobile tongue from recent floor of the mouth surgery to remove squamous cell carcinoma. I am concerned about the patient being able to maintain his airway with his altered mentation.) Head: Normocephalic Neck: Other (Ecchymosis and swelling of the anterior neck secondary to surgery. There is a surgical wound at the base of the neck anteriorly that is clean, dry, intact.) Respiratory/Chest: Decreased Breath Sounds (Diminished breath sounds in both bases), Rhonchi (Bilateral scant rhonchi) Cardiovascular: Tachycardia, Irregularly Irregular Peripheral Pulses: 0: Radial (L), Radial (R), 1+: Carotid (L), Carotid (R), Femoral (L), Femoral (R) GI/Abdominal: Normal Bowel Sounds, Soft Neurological: Disoriented, Unresponsive Skin Exam: Diaphoretic, Pallor ED CARDIOLOGY PROCEDURES - Cardioversion Time of Cardioversion: 19:25 Indication: Unstable, Atrial Fibrillation with RVR Patient Counseled: No (Emergent procedure) Preparation: IV Access, Airway Management Equipment, Supplemental Oxygen, Monitor, Reversal Agents Available Pre-Procedure Sedation: Etomidate Cardioversion Energy: 200J Sync Mode: Biphasic Successful: Yes Number of Attempts: 1 Patient Condition Post Cardioversion: Improved Post Cardioversion EKG Reviewed: Yes - Endotracheal Intubation Time of Intubation: 19:23 ET Intubation Indication: Airway Protection Preparation: Suction, Balloon Tested, BVM Set Up, Difficult Airway Equip Airway Assessment: Large Tongue (Tongue is loose due to recent floor of the mouth surgery) Pre-Oxygenation: Assisted with BVM, 100% FiO2 Anesthesia Meds: Etomidate Placement: Orotracheal Cords Visualized: Yes ETT Size In mm: 8.0 Number of Attempts: 1 Confirmed By: CO2 Indicator, Bilateral Breath Sounds, Chest Xray Tube Secured By: By Provider Course - Vital Signs Last Recorded V/S: Last Vital Signs Temp 36.1 C 04/19/21 19:00 Pulse 173 H 04/19/21 19:15 Resp 44 H 04/19/21 19:15 BP 29/12 L 04/19/21 19:15 Pulse Ox 73 L 04/19/21 19:15 - Orders/Labs/Meds Orders: Active Orders 24 hr Category Date Time Status EKG Documentation Completion [RC] ASDIRECTED Care 04/19/21 19:00 Active EKG Documentation Completion [RC] ASDIRECTED Care 04/19/21 20:00 Active RASS Sedation Scale [RC] ASDIRECTED Care 04/19/21 20:01 Active CXR [Chest 1V Frontal] [CR] Stat Exams 04/19/21 19:27 Taken CXR [Chest 1V Frontal] [CR] Stat Exams 04/19/21 19:35 Taken Diltiazem [Cardizem] 100 mg Med 04/19/21 20:00 Active Sodium Chloride 0.9% [Normal Saline] 100 ml IV TITRATE Sodium Chloride 0.9% [Saline Flush] Med 04/19/21 18:59 Active 10 ml FLUSH ASDIRECTED PRN propofoL [Diprivan 100 ML] 100 ml Med 04/19/21 20:00 Active IV TITRATE Desired Level of Sedation (RASS) [AST] Click to Edit Oth 04/19/21 20:01 Ordered Saline Lock Insert [OM.PC] Routine Oth 04/19/21 18:59 Ordered EKG 12 Lead [EK] Routine Ther 04/19/21 18:59 Ordered EKG 12 Lead [EK] Routine Ther 04/19/21 19:59 Ordered Medication Orders Diltiazem HCl 100 mg/ Sodium (Chloride) 100 mls @ 5 mls/hr IV TITRATE JUDD; Protocol Propofol (Diprivan 100 Ml) 100 mls @ 2.52 mls/hr IV TITRATE JUDD; Protocol Sodium Chloride (Sodium Chloride 0.9% 10 Ml Syringe) 10 ml FLUSH ASDIRECTED PRN PRN Reason: Keep Vein Open Last Admin: 04/19/21 19:04 Dose: 10 ml Documented by: DAMIAN Labs: Laboratory Tests 04/19/21 04/19/21 04/19/21 Range/Units 18:59 18:59 20:04 WBC 20.0 H (4.5-11.0) K/uL RBC 3.58 L (4.30-5.90) M/uL Hgb 11.5 L (12.0-15.0) g/dL Hct 35.4 L (40.0-54.0) % MCV 99 H (80-98) fL MCH 32 H (27-31) pg MCHC 33 (32-36) % Plt Count 380 (150-400) K/uL Neut % (Auto) 80.0 H (36-66) % Lymph % (Auto) 11.7 L (24-44) % [place] % (Auto) 7.7 H (2-6) % Eos % (Auto) 0.5 L (2-4) % Baso % (Auto) 0.1 (0-1) % Sodium 140 (140-148) mmol/L Potassium 3.9 (3.6-5.2) mmol/L Chloride 99 L (100-108) mmol/L Carbon Dioxide 24 (21-32) mmol/L Anion Gap 20.9 H (5.0-14.0) mmol/L BUN 50 H D (7-18) mg/dL Creatinine 2.4 H (0.8-1.3) mg/dL Est Cr Clr Drug Dosing TNP Estimated GFR (MDRD) 26 L (>60) Glucose 153 H (74-106) mg/dL Lactic Acid 6.9 H (0.4-2.0) mmol/L Calcium 9.0 (8.5-10.1) mg/dL Total Bilirubin 0.5 (0.2-1.0) mg/dL AST 38 H D (15-37) U/L ALT 38 (12-78) U/L Alkaline Phosphatase 100 (46-116) U/L Troponin I 0.027 (0.000-0.056) ng/mL Total Protein 7.0 (6.4-8.2) g/dL Albumin 3.0 L (3.4-5.0) g/dL Globulin 4.0 H (2.3-3.5) g/dL Albumin/Globulin Ratio 0.8 L (1.2-2.2) TSH, Ultra Sensitive 10.428 H (0.358-3.740) uIU/mL Meds: Medications Generic Name Dose Route Start Last Admin Trade Name Freq PRN Reason Stop Dose Admin Diltiazem HCl 100 mg/ Sodium 100 mls @ 5 mls/hr 04/19/21 20:00 Chloride IV TITRATE JUDD Protocol 5 MG/HR Propofol 100 mls @ 2.52 mls/hr 04/19/21 20:00 Diprivan 100 Ml IV TITRATE JUDD Protocol 5 MCG/KG/MIN Sodium Chloride 10 ml 04/19/21 18:59 04/19/21 19:04 Sodium Chloride 0.9% 10 Ml Syringe FLUSH 10 ml ASDIRECTED PRN Administration Keep Vein Open Discontinued Medications Generic Name Dose Route Start Last Admin Trade Name Freq PRN Reason Stop Dose Admin Diltiazem HCl 25 mg 04/19/21 19:00 04/19/21 19:04 Diltiazem 25 Mg/5 Ml Sdv IVPUSH 04/19/21 19:01 25 mg ONETIME ONE Administration Diltiazem HCl Confirm 04/19/21 19:32 Diltiazem 100 Mg Advvial Administered 04/19/21 19:33 Dose 100 mg .ROUTE .STK-MED ONE Etomidate 30 mg 04/19/21 20:02 Etomidate 2 Mg/Ml 10 Ml Sdv IVPUSH 04/19/21 20:03 ONETIME ONE Propofol Confirm 04/19/21 19:24 Diprivan 100 Ml Administered 04/19/21 19:25 Dose 100 mls @ as directed .ROUTE .STK-MED ONE Sodium Chloride Confirm 04/19/21 19:33 Normal Saline Administered 04/19/21 19:34 Dose 100 mls @ as directed .ROUTE .STK-MED ONE Propofol 100 mg 04/19/21 20:00 Propofol 200 Mg/20 Ml Sdv IVPUSH 04/19/21 20:01 ONETIME ONE Rocuronium [place] Confirm 04/19/21 19:17 Rocuronium 50 Mg/5 Ml Vial Administered 04/19/21 19:18 Dose 50 mg .ROUTE .STK-MED ONE Rocuronium [place] Confirm 04/19/21 19:19 Rocuronium 50 Mg/5 Ml Vial Administered 04/19/21 19:20 Dose 50 mg .ROUTE .STK-MED ONE Rocuronium [place] 100 mg 04/19/21 20:02 Rocuronium 50 Mg/5 Ml Vial IV 04/19/21 20:03 ONETIME STA - Re-Assessments/Exams Free Text/Narrative Re-Assessment/Exam: 04/19/21 19:07 Luis presents in serious condition with atrial fibrillation with a rapid ventricular response with widening of his QRS complex. The patient's heart rate is between 178 and 200 bpm. His blood pressure 64/29. He is minimally mentating trying to sit up but is confused and disoriented. We initially tried a bolus of diltiazem to see if we could slow him down and increase his blood pressure, however, his heart rate did not change at all. He is not answering questions. He has copious secretions coming from his mouth that are bloody. In addition has a hypermobile tongue from his recent surgery making me very concerned for his ability to maintain his airway. I would feel more comfortable RSI and the patient and intubating him and then cardioverting him rather than just trying to do sedation and emergent cardioversion. RSI was performed with etomidate 30 mg IV push and rocuronium 100 mg IV push. The glide scope was used to visualize the cord and suction was performed to clear secretions. An 8.0 ET tube was used to intubate watching the tube go through the cords. Balloon was inflated and initially we were at 22 cm at the teeth. Tube placement was confirmed by auscultation over the stomach and then lung lion as well as colorimetric indicator and oxygenation. A portable chest x- ray was performed showing that the tip of the tube was 4 cm above the nidhi so we advanced it 3 cm and rechecked a chest x-ray confirming that we are about 2 cm above the nidhi. There was no evidence for infiltrates in either lungs on the portable chest x-ray. After ET tube was secured we performed an electrocardioversion at 200 J synced with the response dropping his heart rate down to 88. He still appears to be in atrial fibrillation but at a much slower rate. Over the course of the half next hour his rate started to climb again above 100 and we started a diltiazem drip. After stabilizing the patient with cardioversion and diltiazem drip, I contacted [facility] where he was just discharged for transfer the patient to their ICU, however, they do not have any beds available so we will need to look elsewhere. The closest hospital that can handle this degree of care would be [facility]. I discussed the case with , toppiece cutter at [facility] who accepts the patient in transfer to their ICU. [facility] is here to transfer the patient. I discussed this with the family who are also in agreement with the plan. In talking with the family it appears that he has been having episodes of waxing and waning mentation at home today. I suspect that he has been in atrial fibrillation for most of the day with a tenuous blood pressure causing hypoperfusion of the brain. He has had several episodes where he had amnesia to the episodes. The last episode also occurred with some difficulty breathing which is why family called EMS to bring him in for evaluation. Patient does have a remote history of atrial fibrillation and has an AICD and monitor at home but family says has been more than 2 years since he has had an episode of atri al fibrillation. 04/19/21 21:18 Labs were obtained with a CBC showing leukocytosis at 20.0 with a hemoglobin of 11.5 and a hematocrit of 35.4. Platelet count is 380,000. There is 80% neutrophils. Comprehensive metabolic panel significant for sodium 140, potassium 3.9, chloride of 99, bicarbonate of 24, BUN of 50 with a creatinine of 2.4 and a glucose of 143. The lactate is 6.9. Troponin is 0.027. TSH is 10.4. The marked elevation in TSH makes me worried that his surgery also included a thyroidectomy or he is having compromise of the thyroid in some way. It is unclear if this is an acute change or not. His lactate of 6.9 is likely due to the his hypoperfusion within the rapid atrial fib. Departure - Departure Time of Disposition: 19:55 Disposition: DC/Tfer to [facility] 02 Reason for Transfer *Q: Other (Not acute coronary syndrome) Clinical Impression: Atrial fibrillation with rapid ventricular response, Hypoxia, Elevated lactic acid level Altered mental status Qualifiers: Altered mental status type: stupor Qualified Code(s): R40.1 - Stupor Hypotension Qualifiers: Hypotension type: unspecified hypotension type Qualified Code(s): I95.9 - Hypotension, unspecified Referrals: PCP,None [Primary Care Provider] - Forms: ED Department Discharge Critical Care Note - Critical Care Note Total Time (mins): 60 Comments: The minutes of critical care time for assessment, management, and arrangement for transfer of the patient. This excludes procedures. Sepsis Event Note (ED) - Focused Exam Vital Signs: Vital Signs Temp Pulse Resp BP Pulse Ox 04/19/21 19:15 173 H 44 H 29/12 L 73 L 04/19/21 19:10 166 H 41 H 67/49 L 93 L 04/19/21 19:05 170 H 38 H 92 L 04/19/21 19:00 36.1 C 169 H 38 H 96 - Problem List & Annotations (1) Altered mental status SNOMED Code(s): 896621940 Code(s): R41.82 - ALTERED MENTAL STATUS, UNSPECIFIED Status: Acute Priority: High Current Visit: Yes Qualifiers: Altered mental status type: stupor Qualified Code(s): R40.1 - Stupor (2) Atrial fibrillation with rapid ventricular response SNOMED Code(s): 794837048577885 Code(s): I48.91 - UNSPECIFIED ATRIAL FIBRILLATION Status: Acute Priority: High Current Visit: Yes (3) Elevated lactic acid level SNOMED Code(s): 3621475 Code(s): R79.89 - OTHER SPECIFIED ABNORMAL FINDINGS OF BLOOD CHEMISTRY Status: Acute Priority: High Current Visit: Yes (4) Hypotension SNOMED Code(s): 80219191 Code(s): I95.9 - HYPOTENSION, UNSPECIFIED Status: Acute Priority: High Current Visit: Yes Qualifiers: Hypotension type: unspecified hypotension type Qualified Code(s): I95.9 - Hypotension, unspecified (5) Hypoxia SNOMED Code(s): 513054322 Code(s): R09.02 - HYPOXEMIA Status: Acute Priority: High Current Visit: Yes - Problem List Review Problem List Initiated/Reviewed/Updated: Yes - My Orders Last 24 Hours: My Active Orders 04/19/21 18:59 Sodium Chloride 0.9% [Saline Flush] 10 ml FLUSH ASDIRECTED PRN Saline Lock Insert [OM.PC] Routine EKG 12 Lead [EK] Routine 04/19/21 19:00 EKG Documentation Completion [RC] ASDIRECTED 04/19/21 19:27 CXR [Chest 1V Frontal] [CR] Stat 04/19/21 19:35 CXR [Chest 1V Frontal] [CR] Stat 04/19/21 19:59 EKG 12 Lead [EK] Routine 04/19/21 20:00 EKG Documentation Completion [RC] ASDIRECTED Diltiazem [Cardizem] 100 mg Sodium Chloride 0.9% [Normal Saline] 100 ml IV TITRATE propofoL [Diprivan 100 ML] 100 ml IV TITRATE 04/19/21 20:01 RASS Sedation Scale [RC] ASDIRECTED Desired Level of Sedation (RASS) [AST] Click to Edit - Assessment/Plan Last 24 Hours: My Active Orders 04/19/21 18:59 Sodium Chloride 0.9% [Saline Flush] 10 ml FLUSH ASDIRECTED PRN Saline Lock Insert [OM.PC] Routine EKG 12 Lead [EK] Routine 04/19/21 19:00 EKG Documentation Completion [RC] ASDIRECTED 04/19/21 19:27 CXR [Chest 1V Frontal] [CR] Stat 04/19/21 19:35 CXR [Chest 1V Frontal] [CR] Stat 04/19/21 19:59 EKG 12 Lead [EK] Routine 04/19/21 20:00 EKG Documentation Completion [RC] ASDIRECTED Diltiazem [Cardizem] 100 mg Sodium Chloride 0.9% [Normal Saline] 100 ml IV TITRATE propofoL [Diprivan 100 ML] 100 ml IV TITRATE 04/19/21 20:01 RASS Sedation Scale [RC] ASDIRECTED Desired Level of Sedation (RASS) [AST] Click to Edit
[2021-04-19] MEDS ORDERED: Diltiazem 100 MG in Sodium Chloride 0.9% 100 ML IV SCH (20:00)
[2021-04-19] MEDS ORDERED: propofoL 100 ML IV SCH (20:00)
[2021-04-19] MEDS ORDERED: Propofol 200 MG/20 ML SDV IVPUSH ONE (20:00)
[2021-04-19] MEDS ORDERED: Etomidate 2 MG/ML 10 ML SDV IVPUSH ONE (20:02)
[2021-04-19] MEDS ORDERED: Rocuronium 50 MG/5 ML Vial IV STA (20:02)
[2021-04-19 21:53] VITALS: BP 134/67; PULSE 109
--- NOTE | 2021-04-22 08:58 | CR ---
CHEST: Portable 04/19/2021 at 7:39 PM CLINICAL HISTORY:Intubation COMPARISON:2019 FINDINGS: Patient has been intubated. Endotracheal tube is in the upper trachea. This is at least 10 cm above the nidhi. The nidhi is not well seen. There is a left hydropneumothorax. Patient has a permanent cardiac pacer/defibrillator. Impression: Very limited study Endotracheal tube is in the upper trachea. Left-sided hydropneumothorax. There is no shift of the mediastinum CHEST: Portable 04/19/2021 at 7:41 PM CLINICAL HISTORY:Intubation COMPARISON:Earlier same day FINDINGS: Endotracheal tube is been advanced to the end is in the distal third of the trachea. Again, the nidhi is not definitively identified due to over lying equipment. There is a left hydropneumothorax similar to prior study. Impression: Limited study Endotracheal tube is been advanced into the distal third of the trachea Left hydropneumothorax
== END 2021-04-19 22:05 ==
LOC: JP.ED 18:54
DX: I48.91 Unspecified atrial fibrillation (principal); I95.9 Hypotension, unspecified; R40.1 Stupor; R74.02 Elevation of levels of lactic acid dehydrogenase [LDH]; I25.10 Atherosclerotic heart disease of native coronary artery without angina pectoris; I11.0 Hypertensive heart disease with heart failure; I50.9 Heart failure, unspecified; I25.2 Old myocardial infarction; J44.9 Chronic obstructive pulmonary disease, unspecified; Z95.0 Presence of cardiac pacemaker; Z88.8 Allergy status to other drugs, medicaments and biological substances; Z79.82 Long term (current) use of aspirin; Z79.899 Other long term (current) drug therapy
CPT/HCPCS: 31500; 36415; 51702; 71045; 80053; 83605; 84443; 84484; 85025; 92960; 93005; 96365; 99285; J2704; J3490

== ENCOUNTER 2021-05-01 11:17 | Emergency (ER) | payer MEDICARE ==
[2021-05-01] MEDS ORDERED: Propofol 200 MG/20 ML SDV IVPUSH ONE (11:35)
[2021-05-01 11:37] VITALS: BP 107/58; PULSE 105
--- NOTE | 2021-05-01 11:49 | EDM.PDOC ---
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 He is not laboring, O2 sats are normal, he is afebrile. Onset: Gradual Duration: Day(s): (Breathing has gotten tougher over the past several days) Associated Symptoms: Reports: Malaise, Shortness of Breath (With activity), Weakness. Denies: Confusion, Chest Pain - Related Data Allergies Allergy/AdvReac Type Severity Reaction Status Date / Time lisinopril AdvReac Cough Verified 05/01/21 14:20 Home Meds: Home Meds Multivitamin [Multivitamins] 1 tab PO DAILY 05/26/16 [History] Citalopram Hydrobromide [Celexa] 10 mg PO DAILY 06/29/18 [History] Amiodarone [Cordarone] 400 mg PO BEDTIME 12/11/19 [History] atorvaSTATin Calcium [Atorvastatin Calcium] 20 mg PO BEDTIME 12/11/19 [History] Cholecalciferol (Vitamin D3) [Vitamin D3] 1,000 unit PO DAILY 12/13/19 [History] Albuterol Sulfate [Albuterol Sulfate Hfa] 1 - 2 inh IH Q4H PRN 09/18/20 [Histo ry] Aspirin [Adult Low Dose Aspirin EC] 81 mg PO DAILY 09/18/20 [History] Ferrous Sulfate [Iron] 325 mg PO ASDIRECTED 09/18/20 [History] Isosorbide Dinitrate 5 mg PO TID 09/18/20 [History] L. Acidophilus/L.bulgaricus [Lactobacillus Tablet] 1 each PO DAILY 09/18/20 [History] Nicotine [Nicotine Patch] 1 each TD DAILY 09/18/20 [History] hydrALAZINE [Apresoline] 5 mg PO TID 09/18/20 [History] Budesonide/Formoterol [Symbicort 80-4.5 MCG] 2 puff IH BID 01/18/21 [History] Bumetanide [Bumex] 2 mg PO DAILY 05/01/21 [History] Calcitonin,[place],Synthetic [Calcitonin-[place]] 1 spray TOP DAILY 05/01/21 [Hi story] Calcium Carbonate 1,200 mg PO BID 05/01/21 [History] Chlorhexidine Gluconate 15 ml PO DAILY 05/01/21 [History] Metoprolol Tartrate 12.5 mg PO BID 05/01/21 [History] Nystatin 5 ml PO QID 05/01/21 [History] oxyCODONE 1 tab PO Q6HR PRN 05/01/21 [History] polyethylene glycoL 3350 [MiraLAX] 17 gm PO DAILY 05/01/21 [History] Past Medical History HEENT History: Reports: Impaired Vision Cardiovascular History: Reports: Afib, CAD, Heart Failure, High Cholesterol, Hypertension, MD, Pacemaker, Prior Cardiac Arrest Respiratory History: Reports: COPD Gastrointestinal History: Reports: Cirrhosis Genitourinary History: Reports: Chronic Renal Insuffiency, Renal Disease Musculoskeletal History: Reports: Arthritis, Fracture Neurological History: Reports: Head Trauma Other Neuro History: 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 Cardiovascular Surgical History: Reports: AICD, Coronary Artery Stent, Pacer, Other (See Below) Other Cardiovascular Surgeries/Procedures: mitral valve repair with clip. Has watchman implanted Respiratory Surgical History: Reports: Thoracentesis GI Surgical History: Reports: Hernia, Inguinal Endocrine Surgical History: Reports: None Neurological Surgical History: Reports: None Musculoskeletal Surgical History: Reports: None Dermatological Surgical History: Reports: None Social & Family History - Family History Family Medical History: No Pertinent Family History Cardiac: Reports: CAD - Caffeine Use Caffeine Use: Reports: Coffee Other Caffeine Use: 8 cups per day ED ROS GENERAL - Review of Systems Review Of Systems: See Below Constitutional: Denies: Fever, Chills Respiratory: Reports: Shortness of Breath, Cough (Mild intermittent cough) GI/Abdominal: Denies: Abdominal Pain, Nausea, Vomiting Skin: Reports: No Symptoms ED EXAM, GENERAL - Physical Exam Exam: See Below Exam Limited By: No Limitations General Appearance: Alert, No Apparent Distress Head: Atraumatic Respiratory/Chest: No Respiratory Distress, Rhonchi (Scattered rhonchi, mildly decreased breath sounds in the left base) Cardiovascular: Irregularly Irregular Extremities: Normal Inspection. No: Pedal Edema Neurological: Alert, Oriented Psychiatric: Normal Affect, Normal Mood Skin Exam: Warm, Dry #1 Interpretation EKG Date: 05/01/21 EKG Interpretation Comments: Atrial paced rhythm, normal QRS Course - Vital Signs Last Recorded V/S: Last Vital Signs Temp 97.8 F 05/01/21 12:00 Pulse 105 H 05/01/21 12:00 Resp 20 05/01/21 12:00 BP 107/58 L 05/01/21 12:00 Pulse Ox 96 05/01/21 12:00 - Orders/Labs/Meds Orders: Active Orders 24 hr Category Date Time Status US Guidance Thoracentesis NC [US] Stat Exams 05/01/21 12:21 Taken EKG 12 Lead [EK] Routine Ther 05/01/21 11:44 Ordered Meds: Medications Discontinued Medications Generic Name Dose Route Start Last Admin Trade Name Jonelle PRN Reason Stop Dose Admin Lorazepam 1 mg 05/01/21 12:55 05/01/21 13:34 Lorazepam 1 Mg Tab PO 05/01/21 12:56 1 mg ONETIME ONE Administration - Re-Assessments/Exams Free Text/Narrative Re-Assessment/Exam: 05/01/21 12:28 2 view chest x-ray was obtained that does show fairly significant left pleural effusion. Ultrasound was ordered to [facility] for thoracentesis and surgery will be consulted. 05/01/21 12:56 Dr. Santana was consulted and he agreed to see the patient in the ACU after clinic to do the thoracentesis. Patient had some fairly significant anxiety so was given 1 mg of oral Ativan prior to being discharged and transferred ACU. He remained stable and fairly comfortable as long as he was not active. Departure - Departure Time of Disposition: 14:00 Disposition: DC/Tfer to Other 70 Clinical Impression: Recurrent left pleural effusion, Dyspnea on exertion, Anxiety - Discharge Information Instructions: Pleural Effusion Referrals: Candy Patel PA [Primary Care Provider] - Forms: ED Department Discharge Care Plan Goals: Dr. Santana will see you later this afternoon for procedure to remove fluid from your left lung. Recheck tomorrow as scheduled, take copy of your x-ray with you to your recheck. Sepsis Event Note (ED) - Focused Exam Vital Signs: Vital Signs Temp Pulse Resp BP Pulse Ox 05/01/21 12:00 97.8 F 105 H 20 107/58 L 96 05/01/21 11:36 97.8 F 105 H 20 107/58 L 96 - My Orders Last 24 Hours: My Active Orders 05/01/21 11:44 EKG 12 Lead [EK] Routine 05/01/21 12:21 US Guidance Thoracentesis NC [US] Stat - Assessment/Plan Last 24 Hours: My Active Orders 05/01/21 11:44 EKG 12 Lead [EK] Routine 05/01/21 12:21 US Guidance Thoracentesis NC [US] Stat
--- NOTE | 2021-05-01 12:27 | CR ---
CHEST: 2 view CLINICAL HISTORY:Dyspnea COMPARISON:04/19/2021 FINDINGS: There is a large left pleural effusion. Heart is enlarged. Patient's permanent cardiac pacer/defibrillator. There is some underlying airspace disease which may be compressive atelectasis or infiltrate. There is some generalized interstitial prominence bilaterally. Some of this is chronic Impression: Large left pleural effusion has increased since prior study Underlying left lower lobe airspace disease Generalized prominence lung markings. Some of this is chronic but some superimposed interstitial infiltrate is not excluded
[2021-05-01] MEDS ORDERED: LORazepam 1 MG Tab PO ONE (12:55)
== END 2021-05-01 14:00 | disposition other institution (70) ==
LOC: JP.ED 11:17
DX: J90 Pleural effusion, not elsewhere classified (principal); F41.9 Anxiety disorder, unspecified; I48.91 Unspecified atrial fibrillation; I25.10 Atherosclerotic heart disease of native coronary artery without angina pectoris; I13.0 Hypertensive heart and chronic kidney disease with heart failure and stage 1 through stage 4 chronic kidney disease, or unspecified chronic kidney disease; N18.9 Chronic kidney disease, unspecified; I50.9 Heart failure, unspecified; E78.00 Pure hypercholesterolemia, unspecified; I25.2 Old myocardial infarction; Z88.8 Allergy status to other drugs, medicaments and biological substances
CPT/HCPCS: 71046; 93005; 99285; A9270

== ENCOUNTER 2021-05-24 11:36 | Emergency (ER) | payer MEDICARE ==
[2021-05-24 11:44] VITALS: BP 107/51; PULSE 70
--- NOTE | 2021-05-24 12:10 | EDM.PDOC ---
ED HPI GENERAL MEDICAL PROBLEM - General Chief Complaint: Respiratory Problem Stated Complaint: BREATHING ISSUES Time Seen by Provider: 05/24/21 12:10 Source of Information: Reports: Patient, Family, RN Notes Reviewed History Limitations: Reports: No Limitations - History of Present Illness INITIAL COMMENTS - FREE TEXT/NARRATIVE: Luis presents today for complaints of shortness of breath and sensation that he needs his chest drained. He has a history of recent oral/neck surgery/removal of multiple lymph nodes of the neck due to a tumor. Currently he is able to eat and drink liquids/soft foods. He denies issues swallowing. He reports he last had his left chest drained on 05/22/2021. He has a pending appointment on 05/27/[address] Santana for a thoracentesis. Today he woke with SOB that progressed and it is now difficult to breath with ambulation. He states he has some dizziness with standing from laying or sitting without syncope. He denies chest pain, mucus production, fever, chills, nausea, vomiting, change in bowel/bladder or other concerns. - Related Data Allergies Allergy/AdvReac Type Severity Reaction Status Date / Time lisinopril AdvReac Cough Verified 05/24/21 11:41 warfarin [From Coumadin] AdvReac Bleeding Verified 05/24/21 11:41 Home Meds: Home Meds Multivitamin [Multivitamins] 1 tab PO DAILY 05/26/16 [History] Citalopram Hydrobromide [Celexa] 10 mg PO DAILY 06/29/18 [History] Amiodarone [Cordarone] 400 mg PO BEDTIME 12/11/19 [History] atorvaSTATin Calcium [Atorvastatin Calcium] 20 mg PO BEDTIME 12/11/19 [History] Cholecalciferol (Vitamin D3) [Vitamin D3] 1,000 unit PO DAILY 12/13/19 [History] Albuterol Sulfate [Albuterol Sulfate Hfa] 1 - 2 inh IH Q4H PRN 09/18/20 [History] Aspirin [Adult Low Dose Aspirin EC] 81 mg PO DAILY 09/18/20 [History] Ferrous Sulfate [Iron] 325 mg PO ASDIRECTED 09/18/20 [History] Isosorbide Dinitrate 5 mg PO TID 09/18/20 [History] L. Acidophilus/L.bulgaricus [Lactobacillus Tablet] 1 each PO DAILY 09/18/20 [History] Nicotine [Nicotine Patch] 1 each TD DAILY 09/18/20 [History] hydrALAZINE [Apresoline] 5 mg PO TID 09/18/20 [History] Budesonide/Formoterol [Symbicort 80-4.5 MCG] 2 puff IH BID 01/18/21 [History] Bumetanide [Bumex] 2 mg PO BID 05/01/21 [History] Calcitonin,[place],Synthetic [Calcitonin-[place]] 1 spray TOP DAILY 05/01/21 [History] Calcium Carbonate 1,200 mg PO BID 05/01/21 [History] Chlorhexidine Gluconate 15 ml PO DAILY 05/01/21 [History] Metoprolol Tartrate 12.5 mg PO BID 05/01/21 [History] Nystatin 5 ml PO QID 05/01/21 [History] oxyCODONE 1 tab PO Q6HR PRN 05/01/21 [History] polyethylene glycoL 3350 [MiraLAX] 17 gm PO DAILY 05/01/21 [History] Past Medical History HEENT History: Reports: Impaired Vision Cardiovascular History: Reports: Afib, CAD, Heart Failure, High Cholesterol, Hypertension, MS, Pacemaker, Prior Cardiac Arrest Respiratory History: Reports: COPD, SOB Gastrointestinal History: Reports: Cirrhosis Genitourinary History: Reports: Chronic Renal Insuffiency, Renal Disease Musculoskeletal History: Reports: Arthritis, Fracture Neurological History: Reports: Head Trauma Other Neuro History: Loss conciousness from skiing Psychiatric History: Reports: Addiction, Anxiety Endocrine/Metabolic History: Reports: Other (See Below) Other Endocrine/Metabolic History: borderline diabetes Hematologic History: Reports: Blood Transfusion(s), Iron Deficiency Oncologic (Cancer) History: Reports: Other (See Below) Other Oncologic History: oral CA - Infectious Disease History Infectious Disease History: Reports: Chicken Pox, Hepatitis C, Measles, Mumps, Pertussis (Whooping Cough) - Past Surgical History Head Surgeries/Procedures: Reports: None HEENT Surgical History: Reports: Tonsillectomy Other HEENT Surgeries/Procedures: oral teeth extraction december 2019. Oral sugery - removed area under tongue and lymp nodes for cancer. Cardiovascular Surgical History: Reports: AICD, Coronary Artery Stent, Pacer, Other (See Below) Other Cardiovascular Surgeries/Procedures: mitral valve repair with clip. Has watchman implanted Respiratory Surgical History: Reports: Thoracentesis GI Surgical History: Reports: Colonoscopy, Hernia, Inguinal Endocrine Surgical History: Reports: None Neurological Surgical History: Reports: None Musculoskeletal Surgical History: Reports: None Oncologic Surgical History: Reports: None Dermatological Surgical History: Reports: None Social & Family History - Family History Family Medical History: No Pertinent Family History Cardiac: Reports: CAD - Caffeine Use Caffeine Use: Reports: Coffee Other Caffeine Use: 8 cups per day ED ROS GENERAL - Review of Systems Review Of Systems: See Below Constitutional: Reports: No Symptoms HEENT: Reports: Throat Swelling (status post oral/neck surgery. Patient reports post-op swelling is slowly going down. He is currently able to eat/drink soft and liquid foods. ) Respiratory: Reports: Shortness of Breath, Other (feeling of fullness and fluid build up to the left chest. ). Denies: Wheezing, Pleuritic Chest Pain, Cough, Sputum, Hemoptysis Cardiovascular: Reports: Dyspnea on Exertion, Lightheadedness (with standing or ambulation that goes away after a few seconds. ). Denies: Chest Pain, Blood Pressure Problem, Claudication, Edema, Orthopnea, Palpitations, PND, Syncope Endocrine: Reports: No Symptoms GI/Abdominal: Reports: No Symptoms : Reports: No Symptoms Musculoskeletal: Reports: No Symptoms Skin: Reports: No Symptoms Neurological: Reports: No Symptoms Psychiatric: Reports: No Symptoms Hematologic/Lymphatic: Reports: No Symptoms Immunologic: Reports: No Symptoms ED EXAM, GENERAL - Physical Exam Exam: See Below Exam Limited By: No Limitations General Appearance: Alert, WD/WN, No Apparent Distress Eye Exam: Bilateral Eye: Normal Inspection, PERRL Ears: Normal External Exam, Normal Canal, Hearing Grossly Normal, Normal TMs Nose: Normal Inspection, Normal Mucosa, No Blood Throat/Mouth: Normal Gums, Normal Voice, No Airway Compromise. No: Normal Oropharynx (edema to tongue, tongue has sections missing, many missing teeth. Sutures visible to tongue, sublingual area. No drainge or discharge. No lesions, noted, no open or gaping areas to surgical site. Edema of tongue without erythema. Patient reports edema is down and continues to decrease daily. ) Head: Atraumatic, Normocephalic Neck: Non-Tender, Full Range of Motion, Other (healing incision to base of anterior neck, well approximated, some ecchymosis noted. No edema or erythema noted. Patient reports several lymph nodes were removed. ). No: Lymphadenopathy (R), Lymphadenopathy (L) Respiratory/Chest: No Respiratory Distress, No Accessory Muscle Use, Chest Non- Tender, Crackles (to left mid and left lower lungs. Very decreased lung sounds left mid to lower lung. ), Other (Oxygen saturation 92 to 94% on room air, no pursed lipped breathing, no cyanosis, no diaphoresis noted. ). No: Rhonchi, Wheezing, Stridor, Pleural Rub, Accessory Muscle Use, Retractions, Splinting Cardiovascular: Normal Peripheral Pulses, Regular Rate, Rhythm, No Edema, No Gallop, No Murmur, No Rub Peripheral Pulses: 4+: Radial (L), Radial (R), Dorsalis Pedis (L), Dorsalis Pedis (R) GI/Abdominal: Normal Bowel Sounds, Soft, Non-Tender, No Organomegaly, No Distention, No Mass. No: Guarding, Rigid, Rebound, Tender (Male) Exam: Deferred Rectal (Males) Exam: Deferred Back Exam: Normal Inspection, Full Range of Motion. No: CVA Tenderness (R), CVA Tenderness (L) Extremities: Normal Inspection, Normal Range of Motion, Non-Tender, No Pedal Edema, Normal Capillary Refill Neurological: Alert, Oriented, Normal Cognition, Normal Gait, Normal Reflexes, No Motor/Sensory Deficits Psychiatric: Normal Affect, Normal Mood Skin Exam: Warm, Dry, Intact, No Rash, Ecchymosis Lymphatic: No Adenopathy Course - Vital Signs Last Recorded V/S: Last Vital Signs Temp 36.3 C 05/24/21 11:48 Pulse 70 05/24/21 11:48 Resp 13 05/24/21 11:48 BP 107/51 L 05/24/21 11:48 Pulse Ox 92 L 05/24/21 11:48 - Orders/Labs/Meds Orders: Active Orders 24 hr Category Date Time Status US Guidance Thoracentesis NC [US] Stat Exams 05/24/21 13:13 Ordered - Radiology Interpretation Free Text/Narrative:: Chest x-ray reviewed, wet read. Noted increase of left lung pleural effusion. - Re-Assessments/Exams Free Text/Narrative Re-Assessment/Exam: 05/24/21 13:[address] Santana on patient dyspnea, pleural effusion. Dr. Santana will complete left thoracentesis on 05/25/2021 at 0800 in the emergency room. Patient and his family notified, they are in agreement with plan. Discussion on anxiety, activity with Luis. He will try use of buspirone as this will not cause drowsiness for him and is not a controlled substance. He is in agreement. Patient verbalized understanding. Departure - Departure Time of Disposition: 13:30 Disposition: Home, Self-Care 01 Condition: Good Clinical Impression: Dyspnea, Anxiety, Pleural effusion on left - Discharge Information Instructions: Shortness of Breath, Adult, [id number], Managing Anxiety, Adult Referrals: PCP,None [Primary Care Provider] - Forms: ED Department Discharge Additional Instructions: You have been evaluated and treated for build of of fluid in your left lung. You had a chest x-ray and US marking done. These were reviewed with Dr. Santana. He would like to do a thoracentesis of your left chest to drain fluid. Return to the emergency room on 05/25/2021 at [phone]esis by Dr. Santana. Do not eat or drink after midnight tonight. Report to the emergency room and procedure will be completed A script for buspirone 5mg by mouth three times a day for anxiety was telephoned in to [facility] [place]. Return for any worsening, difficulty breathing or other concerns. Sepsis Event Note (ED) - Focused Exam Vital Signs: Vital Signs Temp Pulse Resp BP Pulse Ox 05/24/21 11:48 36.3 C 70 13 107/51 L 92 L 05/24/21 11:43 36.3 C 70 13 107/51 L 92 L - My Orders Last 24 Hours: My Active Orders 05/24/21 13:13 US Guidance Thoracentesis NC [US] Stat - Assessment/Plan Last 24 Hours: My Active Orders 05/24/21 13:13 US Guidance Thoracentesis NC [US] Stat Assessment:: Dyspnea, Anxiety, Pleural effusion on left Plan: Patient evaluated and treated for pleural effusion left lung. Chest x-ray and US marking done per Dr. Santana request. Patient will return to the emergency room on 05/25/2021 at [phone]esis by Dr. Santana to be done at 0800. Do not eat or drink after midnight tonight. Report to the emergency room and procedure will be completed A script for buspirone 5mg by mouth three times a day for anxiety was telephoned in to [facility]. Return for any worsening, difficulty breathing or other concerns.
--- NOTE | 2021-05-24 13:08 | CR ---
CHEST: Portable 05/24/2021 at 2:55 PM CLINICAL HISTORY:SOB COMPARISON:05/16/2021 FINDINGS: Heart is enlarged. Pulmonary vascularity is normal. Patient has a large left pleural effusion as well as left lower lobe airspace disease. This is increased since 05/16/2021. There is a permanent cardiac pacer/defibrillator. Impression: Large left pleural effusion increased since prior study Underlying airspace disease in left lower lobe.
== END 2021-05-24 13:42 | disposition home or self-care (01) ==
LOC: JP.ED 11:36
DX: J90 Pleural effusion, not elsewhere classified (principal); F41.9 Anxiety disorder, unspecified; I13.0 Hypertensive heart and chronic kidney disease with heart failure and stage 1 through stage 4 chronic kidney disease, or unspecified chronic kidney disease; N18.9 Chronic kidney disease, unspecified; I50.9 Heart failure, unspecified; I25.10 Atherosclerotic heart disease of native coronary artery without angina pectoris; I48.91 Unspecified atrial fibrillation; J44.9 Chronic obstructive pulmonary disease, unspecified; Z88.8 Allergy status to other drugs, medicaments and biological substances; Z79.899 Other long term (current) drug therapy
CPT/HCPCS: 71045; 71045-26; 99285-25

== ENCOUNTER 2021-05-26 12:23 | Emergency (ER) | payer MEDICARE ==
--- NOTE | 2021-05-26 12:53 | EDM.PDOC ---
ED HPI GENERAL MEDICAL PROBLEM - General Chief Complaint: Respiratory Problem Stated Complaint: SHORT OF BREATH Time Seen by Provider: 05/26/21 12:35 Source of Information: Reports: Patient, Family History Limitations: Reports: No Limitations - History of Present Illness INITIAL COMMENTS - FREE TEXT/NARRATIVE: 75-year-old male with recurring left pleural effusions, had a thoracentesis yesterday and as the night went on he felt like his shortness of breath was coming back again. Also some cough with some sputum production but no fever or chills. He recently had pneumonia. Onset: Gradual Duration: Hour(s): (Symptoms increase the last 14 hours) Location: Reports: Chest (Shortness of breath due to fluid in his left chest) Associated Symptoms: Reports: Shortness of Breath (Especially with activity). Denies: Fever/Chills, Headaches, Nausea/Vomiting - Related Data Allergies Allergy/AdvReac Type Severity Reaction Status Date / Time lisinopril AdvReac Cough Verified 05/26/21 12:44 warfarin [From Coumadin] AdvReac Bleeding Verified 05/26/21 12:44 Home Meds: Home Meds Multivitamin [Multivitamins] 1 tab PO DAILY 05/26/16 [History] Citalopram Hydrobromide [Celexa] 10 mg PO DAILY 06/29/18 [History] Amiodarone [Cordarone] 400 mg PO BEDTIME 12/11/19 [History] atorvaSTATin Calcium [Atorvastatin Calcium] 20 mg PO BEDTIME 12/11/19 [History] Cholecalciferol (Vitamin D3) [Vitamin D3] 1,000 unit PO DAILY 12/13/19 [History] Albuterol Sulfate [Albuterol Sulfate Hfa] 1 - 2 inh IH Q4H PRN 09/18/20 [History] Aspirin [Adult Low Dose Aspirin EC] 81 mg PO DAILY 09/18/20 [History] Ferrous Sulfate [Iron] 325 mg PO ASDIRECTED 09/18/20 [History] Isosorbide Dinitrate 5 mg PO TID 09/18/20 [History] L. Acidophilus/L.bulgaricus [Lactobacillus Tablet] 1 each PO DAILY 09/18/20 [History] Nicotine [Nicotine Patch] 1 each TD DAILY 09/18/20 [History] hydrALAZINE [Apresoline] 5 mg PO TID 09/18/20 [History] Budesonide/Formoterol [Symbicort 80-4.5 MCG] 2 puff IH BID 01/18/21 [History] Bumetanide [Bumex] 2 mg PO BID 05/01/21 [History] Calcitonin,[place],Synthetic [Calcitonin-[place]] 1 spray TOP DAILY 05/01/21 [History] Calcium Carbonate 1,200 mg PO BID 05/01/21 [History] Chlorhexidine Gluconate 15 ml PO DAILY 05/01/21 [History] Metoprolol Tartrate 12.5 mg PO BID 05/01/21 [History] Nystatin 5 ml PO QID 05/01/21 [History] oxyCODONE 1 tab PO Q6HR PRN 05/01/21 [History] polyethylene glycoL 3350 [MiraLAX] 17 gm PO DAILY 05/01/21 [History] Past Medical History HEENT History: Reports: Impaired Vision Cardiovascular History: Reports: Afib, CAD, Heart Failure, High Cholesterol, Hypertension, [place], Pacemaker, Prior Cardiac Arrest Respiratory History: Reports: COPD, SOB Gastrointestinal History: Reports: Cirrhosis Genitourinary History: Reports: Chronic Renal Insuffiency, Renal Disease Musculoskeletal History: Reports: Arthritis, Fracture Neurological History: Reports: Head Trauma Other Neuro History: Loss conciousness from skiing Psychiatric History: Reports: Addiction, Anxiety Endocrine/Metabolic History: Reports: Other (See Below) Other Endocrine/Metabolic History: borderline diabetes Hematologic History: Reports: Blood Transfusion(s), Iron Deficiency Oncologic (Cancer) History: Reports: Other (See Below) Other Oncologic History: oral CA - Infectious Disease History Infectious Disease History: Reports: Chicken Pox, Hepatitis C, Measles, Mumps, Pertussis (Whooping Cough) - Past Surgical History Head Surgeries/Procedures: Reports: None HEENT Surgical History: Reports: Tonsillectomy Other HEENT Surgeries/Procedures: oral teeth extraction december 2019. Oral sugery - removed area under tongue and lymp nodes for cancer. Cardiovascular Surgical History: Reports: AICD, Coronary Artery Stent, Pacer, Other (See Below) Other Cardiovascular Surgeries/Procedures: mitral valve repair with clip. Has watchman implanted Respiratory Surgical History: Reports: Thoracentesis GI Surgical History: Reports: Colonoscopy, Hernia, Inguinal Endocrine Surgical History: Reports: None Neurological Surgical History: Reports: None Musculoskeletal Surgical History: Reports: None Oncologic Surgical History: Reports: None Dermatological Surgical History: Reports: None Social & Family History - Family History Family Medical History: No Pertinent Family History Cardiac: Reports: CAD - Caffeine Use Caffeine Use: Reports: Coffee Other Caffeine Use: 8 cups per day ED ROS GENERAL - Review of Systems Review Of Systems: See Below Constitutional: Denies: Fever, Chills, Malaise HEENT: Denies: Vision Change Respiratory: Reports: Shortness of Breath (Especially with activity) Cardiovascular: Denies: Chest Pain, Palpitations GI/Abdominal: Denies: Abdominal Pain, Nausea, Vomiting Skin: Reports: No Symptoms Neurological: Denies: Headache Psychiatric: Reports: No Symptoms ED EXAM, GENERAL - Physical Exam Exam: See Below Exam Limited By: No Limitations General Appearance: Alert, No Apparent Distress, Other (Breathing is shallow nonlabored, no increased respiratory work) Head: Atraumatic Respiratory/Chest: No Respiratory Distress, Decreased Breath Sounds (Decreased breath sounds and a few rhonchi are heard in the left base), Rhonchi Cardiovascular: Regular Rate, Rhythm GI/Abdominal: Soft, Non-Tender Extremities: Pedal Edema (Just a trace of edema is present at the ankles, slightly more on the left and right) Neurological: Alert, Oriented, No Motor/Sensory Deficits Psychiatric: Anxious Skin Exam: Warm, Dry Course - Vital Signs Last Recorded V/S: Last Vital Signs Temp 97.8 F 05/26/21 12:58 Pulse 74 05/26/21 12:58 Resp 20 05/26/21 12:58 BP 94/53 L 05/26/21 12:58 Pulse Ox 91 L 05/26/21 12:58 - Orders/Labs/Meds Orders: Active Orders 24 hr Category Date Time Status Chest 2V [CR] Routine Exams 05/26/21 12:50 Taken - Re-Assessments/Exams Free Text/Narrative Re-Assessment/Exam: 05/26/21 15:17 2 view chest x-ray was obtained which showed the pleural effusion has gotten larger since the post procedure x-ray done yesterday, but significantly lower than prior to the procedure. I discussed this with Dr. Santana, he is going to recheck the patient on Thursday in the clinic and consider pleurodesis. He can return sooner if significant worsening prior to Thursday. Departure - Departure Time of Disposition: 14:15 Disposition: Home, Self-Care 01 Clinical Impression: Recurrent left pleural effusion - Discharge Information Instructions: Pleural Effusion Referrals: PCP,None [Primary Care Provider] - Forms: ED Department Discharge Care Plan Goals: Call the clinic tomorrow to inform them that Dr. Santana would like to see you at 10:30 on Thursday. Return sooner if worsening or concerns Sepsis Event Note (ED) - Focused Exam Vital Signs: Vital Signs Temp Pulse Resp BP Pulse Ox 05/26/21 12:58 97.8 F 74 20 94/53 L 91 L - My Orders Last 24 Hours: My Active Orders 05/26/21 12:50 Chest 2V [CR] Routine - Assessment/Plan Last 24 Hours: My Active Orders 05/26/21 12:50 Chest 2V [CR] Routine
[2021-05-26 13:00] VITALS: BP 94/53; PULSE 74
--- NOTE | 2021-05-27 09:55 | CR ---
CHEST: 2 view CLINICAL HISTORY:Dyspnea COMPARISON:05/25/2021 FINDINGS: Cardiomegaly. Lungs are generally emphysematous. There is a small to moderate left pleural effusion. This is likely similar to prior study considering positional differences. There is generalized prominence of the interstitial markings. This may represent some interstitial edema. Patient has a permanent cardiac pacer/fibrillator. There is incidental note of a compression fracture of T11. This is on recent studies but not on the lateral chest from December 2019. Impression: Small to moderate left pleural effusion No evidence of pneumothorax Generalized interstitial prominence. Though some of this may be chronic some interstitial edema suspected. Cardiomegaly with permanent cardiac pacer/defibrillator
== END 2021-05-26 14:15 | disposition home or self-care (01) ==
LOC: JP.ED 12:23
DX: J90 Pleural effusion, not elsewhere classified (principal); I13.0 Hypertensive heart and chronic kidney disease with heart failure and stage 1 through stage 4 chronic kidney disease, or unspecified chronic kidney disease; N18.9 Chronic kidney disease, unspecified; I50.9 Heart failure, unspecified; I25.10 Atherosclerotic heart disease of native coronary artery without angina pectoris; E78.00 Pure hypercholesterolemia, unspecified; J44.9 Chronic obstructive pulmonary disease, unspecified; Z79.82 Long term (current) use of aspirin; Z79.899 Other long term (current) drug therapy; Z88.8 Allergy status to other drugs, medicaments and biological substances; Z88.3 Allergy status to other anti-infective agents
CPT/HCPCS: 71046; 71046-26; 99284-25

== ENCOUNTER 2021-09-01 11:49 | Emergency (ER) | payer MEDICARE ==
[2021-09-01 11:57] VITALS: PULSE 138
[2021-09-01] MEDS ORDERED: Sodium Chloride 0.9% 1,000 ML IV SCH (12:00)
--- NOTE | 2021-09-01 13:09 | EDM.PDOC ---
ED HPI GENERAL MEDICAL PROBLEM - General Chief Complaint: Cardiovascular Problem Stated Complaint: VIA [facility] Time Seen by Provider: 09/01/21 11:55 Source of Information: Reports: Patient, EMS, Family History Limitations: Reports: No Limitations - History of Present Illness INITIAL COMMENTS - FREE TEXT/NARRATIVE: ambulance was called because his o2 sats were low. He was sitting in the low 80s. The ambulance picked him up and with o2 he was stable. In the ambulance he had a full blown seizure. He had brief cpr. He has a defibrilator and it went off. He converted and he then started to wake up. He arrived here and was trying to speak. He then went into ve tach and his defribrilator went off. He was found to have a k of 2.7. his mag was normal. Hewas given 300mg iv push of amiroderone and a 150 mg drip was hung at 1 mg per hr. Onset: Today, Sudden Duration: Minutes: Location: Reports: Chest, Generalized Associated Symptoms: Reports: Shortness of Breath, Weakness - Related Data Allergies Allergy/AdvReac Type Severity Reaction Status Date / Time clopidogrel [From Plavix] AdvReac Bleeding Verified 09/01/21 12:04 lisinopril AdvReac Cough Verified 09/01/21 12:04 warfarin [From Coumadin] AdvReac Bleeding Verified 09/01/21 12:04 Home Meds: Home Meds Multivitamin [Multivitamins] 1 tab PO DAILY 05/26/16 [History] Citalopram Hydrobromide [Celexa] 10 mg PO DAILY 06/29/18 [History] Amiodarone [Cordarone] 400 mg PO BID 12/11/19 [History] atorvaSTATin Calcium [Atorvastatin Calcium] 20 mg PO BEDTIME 12/11/19 [History] Cholecalciferol (Vitamin D3) [Vitamin D3] 1,000 unit PO DAILY 12/13/19 [History] Albuterol Sulfate [Albuterol Sulfate Hfa] 1 - 2 inh IH BID 09/18/20 [History] Aspirin [Adult Low Dose Aspirin EC] 81 mg PO DAILY 09/18/20 [History] Ferrous Sulfate [Iron] 325 mg PO BID 09/18/20 [History] Isosorbide Dinitrate 5 mg PO TID 09/18/20 [History] L. Acidophilus/L.bulgaricus [Lactobacillus Tablet] 1 each PO DAILY 09/18/20 [History] Nicotine [Nicotine Patch] 1 each TD DAILY 09/18/20 [History] hydrALAZINE [Apresoline] 5 mg PO TID 09/18/20 [History] Budesonide/Formoterol [Symbicort 80-4.5 MCG] 2 puff IH BID 01/18/21 [History] Bumetanide [Bumex] 2 mg PO BID 05/01/21 [History] Calcitonin,[place],Synthetic [Calcitonin-[place]] 1 spray TOP DAILY 05/01/21 [History] Calcium Carbonate 1,200 mg PO BID 05/01/21 [History] Metoprolol Tartrate 50 mg PO DAILY 05/01/21 [History] Nystatin 5 ml PO QID 05/01/21 [History] oxyCODONE 5 mg PO Q6HR PRN 05/01/21 [History] polyethylene glycoL 3350 [MiraLAX] 17 gm PO DAILY 05/01/21 [History] Nicotine Polacrilex [Nicotine Lozenge] 2 mg PO .4-5X/DAY 05/28/21 [History] methocarbamoL [Methocarbamol] 750 mg PO Q6H PRN 05/28/21 [History] predniSONE [Prednisone] 20 mg PO DAILY 07/26/21 [History] Past Medical History HEENT History: Reports: Impaired Vision Cardiovascular History: Reports: Afib, CAD, Heart Failure, High Cholesterol, Hypertension, [place], Pacemaker, Prior Cardiac Arrest Respiratory History: Reports: COPD, SOB Gastrointestinal History: Reports: Cirrhosis Genitourinary History: Reports: Chronic Renal Insuffiency, Renal Disease Musculoskeletal History: Reports: Arthritis, Fracture Neurological History: Reports: Head Trauma Other Neuro History: Loss conciousness from skiing Psychiatric History: Reports: Addiction, Anxiety Endocrine/Metabolic History: Reports: Other (See Below) Other Endocrine/Metabolic History: borderline diabetes Hematologic History: Reports: Blood Transfusion(s), Iron Deficiency Oncologic (Cancer) History: Reports: Other (See Below) Other Oncologic History: oral CA - Infectious Disease History Infectious Disease History: Reports: Chicken Pox, Hepatitis C, Measles, Mumps, Pertussis (Whooping Cough) - Past Surgical History Head Surgeries/Procedures: Reports: None HEENT Surgical History: Reports: Tonsillectomy Other HEENT Surgeries/Procedures: oral teeth extraction december 2019. Oral sugery - removed area under tongue and lymp nodes for cancer. Cardiovascular Surgical History: Reports: AICD, Coronary Artery Stent, Pacer, Other (See Below) Other Cardiovascular Surgeries/Procedures: mitral valve repair with clip. Has watchman implanted Respiratory Surgical History: Reports: Thoracentesis GI Surgical History: Reports: Colonoscopy, Hernia, Inguinal Endocrine Surgical History: Reports: None Neurological Surgical History: Reports: None Musculoskeletal Surgical History: Reports: None Oncologic Surgical History: Reports: None Dermatological Surgical History: Reports: None Social & Family History - Family History Family Medical History: No Pertinent Family History Cardiac: Reports: CAD - Tobacco Use Tobacco Use Status *Q: Former Tobacco User Used Tobacco, but Quit: Yes Month/Year Tobacco Last Used: April 2021 - Caffeine Use Caffeine Use: Reports: Coffee Other Caffeine Use: 8 cups per day - Recreational Drug Use Recreational Drug Use: No ED ROS GENERAL - Review of Systems Review Of Systems: See Below Constitutional: Reports: No Symptoms HEENT: Reports: No Symptoms Respiratory: Reports: Shortness of Breath Cardiovascular: Reports: Palpitations, Other ( vtach and a low k .) GI/Abdominal: Reports: No Symptoms : Reports: No Symptoms Musculoskeletal: Reports: No Symptoms Skin: Reports: No Symptoms Neurological: Reports: Other (pt had a full blown sizure when he was in Vtach) Psychiatric: Reports: Anxiety ED EXAM, GENERAL - Physical Exam Exam: See Below Free Text/Narrative:: since he was defrilated in er. He has been alert and able to answer questions. He is on a amiroderone drip 150 mg. He has been stable rhythm maradiaga. He has 20 meq of k in a drip. He has good o2 sats at 2-3 liters. Exam Limited By: No Limitations General Appearance: Alert, Anxious, Mild Distress, Other ( pupils are equal and reactive. ) Ears: Normal TMs Nose: Normal Inspection Throat/Mouth: Normal Inspection Head: Atraumatic Neck: Normal Inspection Respiratory/Chest: Other ( chest xray revealed a large left sided pleural effusion) Cardiovascular: Tachycardia, Other (pt has had 3 episodes of vtach. his rhythm is sttable at this point. ) GI/Abdominal: Soft, Non-Tender (Male) Exam: Deferred Rectal (Males) Exam: Deferred Back Exam: Normal Inspection Extremities: Normal Inspection Neurological: Alert, Oriented, Normal Cognition Psychiatric: Anxious Course - Vital Signs Last Recorded V/S: Last Vital Signs Temp 36.7 C 09/01/21 11:53 Pulse 138 H 09/01/21 11:53 Resp 12 09/01/21 13:10 BP 88/42 L 09/01/21 13:10 Pulse Ox 96 09/01/21 13:10 - Orders/Labs/Meds Labs: Laboratory Tests 09/01/21 09/01/21 09/01/21 Range/Units 11:51 11:52 11:55 WBC 26.5 H (4.5-11.0) K/uL RBC 4.28 L (4.30-5.90) M/uL Hgb 12.7 (12.0-15.0) g/dL Hct 38.8 L (40.0-54.0) % MCV 91 (80-98) fL MCH 30 (27-31) pg MCHC 33 (32-36) % Plt Count 277 (150-400) K/uL Neut % (Auto) 89.3 H (36-66) % Lymph % (Auto) 3.8 L (24-44) % [place] % (Auto) 6.7 H (2-6) % Eos % (Auto) 0.1 L (2-4) % Baso % (Auto) 0.1 (0-1) % D-Dimer, Quantitative (0.0-500.0) ng/mL Puncture Site Lt brachial ABG pH 7.617 H* (7.350-7.450) ABG pCO2 28.7 L (35.0-42.0) mmHg ABG pO2 64.9 L (75.0-100.0) mmHg ABG HCO3 29.6 H (22.0-26.0) mmol/L ABG Total CO2 25.6 (23.0-27.0) mmol/L ABG O2 Saturation 93.9 L (95.0-98.0) % ABG O2 Content 16.1 (15.0-23.0) %vol ABG Base Excess 8.3 mm/L ABG Hemoglobin 12.5 L (13.5-18.0) g/dL ABG Oxyhemoglobin 91.7 % ABG Carboxyhemoglobin 1.3 (0.0-1.6) % ABG Methemoglobin 1.0 % Waylon Test Not performed O2 Delivery Device Non rebr mask Oxygen Flow Rate 2.5 L Sodium (140-148) mmol/L Potassium (3.6-5.2) mmol/L Chloride (100-108) mmol/L Carbon Dioxide (21-32) mmol/L Anion Gap (5.0-14.0) mmol/L BUN (7-18) mg/dL Creatinine (0.8-1.3) mg/dL Est Cr Clr Drug Dosing mL/min Estimated GFR (MDRD) (>60) Glucose (74-106) mg/dL Calcium (8.5-10.1) mg/dL Magnesium (1.8-2.4) mg/dL Total Bilirubin (0.2-1.0) mg/dL AST (15-37) U/L ALT (12-78) U/L Alkaline Phosphatase (46-116) U/L Troponin I High Sens 76.6 H* (<=60.3) pg/mL Total Protein (6.4-8.2) g/dL Albumin (3.4-5.0) g/dL Globulin (2.3-3.5) g/dL Albumin/Globulin Ratio (1.2-2.2) 09/01/21 09/01/21 09/01/21 Range/Units 11:55 12:11 12:15 WBC (4.5-11.0) K/uL RBC (4.30-5.90) M/uL Hgb (12.0-15.0) g/dL Hct (40.0-54.0) % MCV (80-98) fL MCH (27-31) pg MCHC (32-36) % Plt Count (150-400) K/uL Neut % (Auto) (36-66) % Lymph % (Auto) (24-44) % [place] % (Auto) (2-6) % Eos % (Auto) (2-4) % Baso % (Auto) (0-1) % D-Dimer, Quantitative 8552.06 H (0.0-500.0) ng/mL Puncture Site ABG pH (7.350-7.450) ABG pCO2 (35.0-42.0) mmHg ABG pO2 (75.0-100.0) mmHg ABG HCO3 (22.0-26.0) mmol/L ABG Total CO2 (23.0-27.0) mmol/L ABG O2 Saturation (95.0-98.0) % ABG O2 Content (15.0-23.0) %vol ABG Base Excess mm/L ABG Hemoglobin (13.5-18.0) g/dL ABG Oxyhemoglobin % ABG Carboxyhemoglobin (0.0-1.6) % ABG Methemoglobin % Waylon Test O2 Delivery Device Oxygen Flow Rate L Sodium 138 L (140-148) mmol/L Potassium 2.7 L* (3.6-5.2) mmol/L Chloride 92 L (100-108) mmol/L Carbon Dioxide 32 (21-32) mmol/L Anion Gap 16.7 H (5.0-14.0) mmol/L BUN 60 H D (7-18) mg/dL Creatinine 3.7 H* D (0.8-1.3) mg/dL Est Cr Clr Drug Dosing 18.47 mL/min Estimated GFR (MDRD) 16 L (>60) Glucose 145 H (74-106) mg/dL Calcium 8.5 (8.5-10.1) mg/dL Magnesium 2.1 (1.8-2.4) mg/dL Total Bilirubin 1.2 H D (0.2-1.0) mg/dL AST 260 H D (15-37) U/L ALT 333 H (12-78) U/L Alkaline Phosphatase 124 H (46-116) U/L Troponin I High Sens (<=60.3) pg/mL Total Protein 6.9 (6.4-8.2) g/dL Albumin 3.2 L (3.4-5.0) g/dL Globulin 3.7 H (2.3-3.5) g/dL Albumin/Globulin Ratio 0.9 L (1.2-2.2) Meds: Medications Discontinued Medications Generic Name Dose Route Start Last Admin Trade Name Freq PRN Reason Stop Dose Admin Amiodarone HCl 300 mg 09/01/21 13:39 09/01/21 12:11 Amiodarone 150 Mg/3 Ml Sdv IVPUSH 09/01/21 13:40 300 mg ONETIME ONE Administration Sodium Chloride 1,000 mls @ 100 mls/hr 12/26/21 12:00 09/01/21 12:19 Normal Saline IV 100 mls/hr ASDIRECTED JUDD Administration Potassium Chloride 20 meq/ 100 mls @ 50 mls/hr 09/01/21 13:39 09/01/21 12:18 Premix IV 09/01/21 15:38 50 mls/hr ONETIME ONE Administration Amiodarone HCl 450 mg/ 250 mls @ 33.333 mls/hr 09/01/21 13:45 09/01/21 12:16 Dextrose/Water IV 1 mg/min ASDIRECTED JUDD 33.333 mls/hr Administration Protocol 1 MG/MIN - Re-Assessments/Exams Free Text/Narrative Re-Assessment/Exam: 09/01/21 13:14 pt went into v tach and was defririllated. He was given amiroderone 300mg iv pyush and a 150 mg drip was hung. He was given kcl 20 kye. His bp is stable at this point. He is alert and conversing. He did have another brief run of v tach right aftwer the one he had while here. His o2 sats are ok with 2-3 liters per cnula. Departure - Departure Time of Disposition: 13:16 Disposition: DC/Tfer to Acute Hospital 02 Reason for Transfer *Q: Primary PCI Indicated Condition: Fair Clinical Impression: V-tach, Hypokalemia, Low O2 saturation, COPD (chronic obstructive pulmonary disease), Recurrent left pleural effusion Referrals: Candy Patel PA [Primary Care Provider] - Forms: ED Department Discharge Care Plan Goals: transfer to [facility]. Critical Care Note - Critical Care Note Comments: pt has 1 hour of critical care. He had multiple episodes of vtach defibed by his own defibrilator. His k was low. Hw was placwed on amiroderone. Wit all of this he stablized and was flown to [facility]. Sepsis Event Note (ED) - Evaluation Sepsis Screening Result: Possible Sepsis Risk
[2021-09-01 13:10] VITALS: BP 88/42
[2021-09-01] MEDS ORDERED: Potassium Chloride 20 MEQ in Premix Bag 1 BAG IV ONE (13:39)
[2021-09-01] MEDS ORDERED: Amiodarone 150 MG/3 ML SDV IVPUSH ONE (13:39)
--- NOTE | 2021-09-02 15:06 | CR ---
CHEST: Portable 09/01/2021 at 11:58 AM CLINICAL HISTORY:Hypoxia COMPARISON:08/06/2021 FINDINGS: Heart is enlarged. Pulmonary vascularity is normal. There is a moderate left pleural effusion. There is some patchy opacity in both lower lung lion. Impression: Moderate cardiac megaly Moderate left effusion Generalized interstitial prominence and some patchy density in both lung bases. This could represent some mild pulmonary edema or infiltrate
== END 2021-09-01 13:35 ==
LOC: JP.ED 11:49
DX: J44.9 Chronic obstructive pulmonary disease, unspecified (principal); J90 Pleural effusion, not elsewhere classified; R09.02 Hypoxemia; E87.6 Hypokalemia; I48.91 Unspecified atrial fibrillation; I25.10 Atherosclerotic heart disease of native coronary artery without angina pectoris; I13.0 Hypertensive heart and chronic kidney disease with heart failure and stage 1 through stage 4 chronic kidney disease, or unspecified chronic kidney disease; N18.9 Chronic kidney disease, unspecified; I50.9 Heart failure, unspecified; I25.2 Old myocardial infarction; Z95.0 Presence of cardiac pacemaker; Z88.8 Allergy status to other drugs, medicaments and biological substances; Z79.82 Long term (current) use of aspirin; Z79.899 Other long term (current) drug therapy; Z87.891 Personal history of nicotine dependence
CPT/HCPCS: 36415; 36600; 71045; 80053; 82803; 83735; 84484; 85025; 85379; 96365; 96368; 96376; 99285; J0282; J3480; J7030; J7060